=== PATIENT | male | born 1940 | race African-American/Black ===

== ENCOUNTER 2016-04-01 00:58 | Emergency (ER) | payer OTHER, MEDICARE ==
[2016-04-01] MEDS ORDERED: NORMAL SALINE 1000 ML 1,000 ML IV ONE (01:34)
--- NOTE | 2016-04-01 01:47 | ER Document Report ---
ED General - General Chief Complaint: Syncope Stated Complaint: SYNCOPE TRAVEL OUTSIDE OF THE [place] IN LAST 30 DAYS: No - HPI Patient complains to provider of: syncope Notes: Patient coming in for evaluation syncope. Patient states she has a history of syncope will multiple episodes in the past. 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 Patient states most, he has a passing out episode he initially becomes dizzy and then passed out for brief period time. Patient denies any head pain chest pain abdominal pain or 2 during or after the episode. Patient currently is ANO 3 acting like himself according to family member at bedside. Patient did just recently started new diet family' s concern that patient is not eating enough or drinking enough. Patient was orthostatic for EMS. Otherwise patient has no complaints no recent travel no changes in his home medications. - Related Data Allergies/Adverse Reactions: No Known Allergies Allergy (Verified 04/01/16 01:33) Past Medical History - Social History Smoking Status: Unknown if Ever Smoked Family History: None - Past Medical History Cardiac Medical History: Reports: Hx Hypertension Past Surgical History: Reports: Hx Tonsillectomy, Other - prostate biopsy - Immunizations Hx Diphtheria, Pertussis, Tetanus Vaccination: Yes Review of Systems - Review of Systems Constitutional: No symptoms reported EENT: No symptoms reported Cardiovascular: Syncope Respiratory: No symptoms reported Gastrointestinal: No symptoms reported Genitourinary: No symptoms reported Male Genitourinary: No symptoms reported Musculoskeletal: No symptoms reported Skin: No symptoms reported Hematologic/Lymphatic: No symptoms reported Neurological/Psychological: No symptoms reported -: Yes All other systems reviewed and negative Physical Exam - Vital signs Vitals: Temp Resp BP Pulse Ox 98.0 F 18 108/55 L 93 04/01/16 01:09 04/01/16 01:09 04/01/16 01:09 04/01/16 01:09 Interpretation: Normal - General General appearance: Appears well, Alert - HEENT Head: Normocephalic, Atraumatic Eyes: Normal Pupils: PERRL - Respiratory Respiratory status: No respiratory distress Chest status: Nontender Breath sounds: Normal Chest palpation: Normal - Cardiovascular Rhythm: Regular Heart sounds: Normal auscultation Murmur: No - Abdominal Inspection: Normal Distension: No distension Bowel sounds: Normal Tenderness: Nontender Organomegaly: No organomegaly - Back Back: Normal, Nontender - Extremities General upper extremity: Normal inspection, Nontender, Normal color, Normal ROM , Normal temperature General lower extremity: Normal inspection, Nontender, Normal color, Normal ROM , Normal temperature, Normal weight bearing. No: Napoleon's sign - Neurological Neuro grossly intact: Yes Cognition: Normal Orientation: AAOx4 [place] Coma Scale Eye Opening: Spontaneous [place] Coma Scale Verbal: Oriented Ej Coma Scale Motor: Obeys Commands [place] Coma Scale Total: 15 Speech: Normal Motor strength normal: LUE, RUE, LLE, RLE Sensory: Normal - Psychological Associated symptoms: Normal affect, Normal mood - Skin Skin Temperature: Warm Skin Moisture: Dry Skin Color: Normal Course - Re-evaluation Re-evalutation: 04/01/16 07:07 Patient able ambulate around the ER without difficulty. Patient's lab work shows no acute pathology. Troponins negative patient will be discharged home. - Vital Signs Vital signs: Temp Pulse Resp BP Pulse Ox 98.0 F 16 108/61 94 04/01/16 01:09 04/01/16 06:56 04/01/16 06:56 04/01/16 06:56 - Laboratory Result Diagrams: 04/01/16 01:50 04/01/16 01:50 Laboratory results interpreted by me: 04/01/16 04/01/16 04/01/16 01:50 01:50 01:50 RBC 3.93 L Hgb 11.4 L Hct 35.4 L Monocytes % 13.4 H BUN 51 H Creatinine 1.54 H Est GFR ( Amer) 54 L Est GFR (Non-Af Amer) 44 L Creatine Kinase 405 H CK-MB (CK-2) 4.93 H Total Protein 6.0 L Discharge - Discharge Clinical Impression: Syncope Qualifiers: Syncope type: unspecified Qualified Code(s): R55 - Syncope and collapse Condition: Good Disposition: HOME, SELF-CARE Instructions: Syncopal Episode ([facility]) Additional Instructions: Please follow-up with your primary care physician. Return to the ER symptoms worsen. Referrals: MARY GRACE SCHWARTZ MD [Primary Care Provider] - Follow up in 3-5 days
[2016-04-01 02:04] LABS: ABSOLUTE BASOPHILS # (AUTO) 0.1 10^3/uL (0.0-0.2); ABSOLUTE EOSINOPHILS # (AUTO) 0.3 10^3/uL (0.0-0.6); ABSOLUTE LYMPHOCYTES (AUTO) 1.4 10^3/uL (0.5-4.7); ABSOLUTE MONOCYTES (AUTO) 1.3 10^3/uL (0.1-1.4); ABSOLUTE NEUT (AUTO) 6.6 10^3/uL (1.7-8.2); BASOPHILS % (AUTO) 0.8 % (0-2); EOSINOPHILS % (AUTO) 3.2 % (0-6); HEMATOCRIT 35.4 % (37.9-51.0); HEMOGLOBIN 11.4 g/dL (13.5-17.0); HGB HCT DIFFERENCE -1.2; MEAN CORPUSCULAR HEMOGLOBIN 29.1 pg (27.0-33.4); MEAN CORPUSCULAR HGB CONC 32.3 g/dL (32.0-36.0); MEAN CORPUSCULAR VOLUME 90 fl (80-97); MONOCYTES % (AUTO) 13.4 % (3-13); RED BLOOD COUNT 3.93 10^6/uL (4.35-5.55); SEGMENTED NEUTROPHILS % (AUTO) 68.6 % (42-78); WHITE BLOOD COUNT 9.7 10^3/uL (4.0-10.5)
[2016-04-01 02:21] LABS: PROTHROMBIN TIME 14.2 SEC (11.4-15.4)
[2016-04-01 02:25] LABS: ALANINE AMINOTRANSFERASE 30 U/L (21-72); ALBUMIN 3.5 g/dL (3.5-5.0); ALKALINE PHOSPHATASE 59 U/L (38-126); ANION GAP 9 (5-19); ASPARTATE AMINO TRANSFERASE 32 U/L (17-59); BILIRUBIN,TOTAL 0.3 mg/dL (0.2-1.3); BLOOD UREA NITROGEN 51 mg/dL (7-20); CALCIUM 8.7 mg/dL (8.4-10.2); CARBON DIOXIDE 27 mmol/L (22-30); CHLORIDE 105 mmol/L (98-107); CREATINE KINASE 405 U/L (55-170); CREATININE RESULT 1.54 mg/dL (0.52-1.25); GLUCOSE 92 mg/dL (75-110); POTASSIUM 4.4 mmol/L (3.6-5.0); SODIUM 141.3 mmol/L (137-145)
[2016-04-01 02:33] LABS: CREATINE KINASE MB 4.93 ng/mL (<4.55)
[2016-04-01 02:41] LABS: TROPONIN I < 0.012 ng/mL
[2016-04-01 07:00] VITALS: BP 108/61
--- NOTE | 2016-04-01 08:20 | EKG REPORT ---
SEVERITY:- ABNORMAL ECG - SINUS RHYTHM PAIRED VENTRICULAR PREMATURE COMPLEXES : Confirmed by: Gustavo Francois MD 01-Apr-2016 08:19:28
== END 2016-04-01 06:59 | disposition home or self-care (01) ==
LOC: ER 00:58
DX: R55 Syncope and collapse (principal); I10 Essential (primary) hypertension
CPT/HCPCS: 93005; 99284; 96360; 36415; 82553; 82550; 83735; 85025; 85610; 80053; 84484; 71010; 93010; J7030

== ENCOUNTER → 2016-04-08 | Outpatient (CLI) | payer MEDICARE, OTHER | LOC: RAD 12:49 | PROVIDERS: ATTEND Internal Medicine Geriatric Medicine | DX: R55 Syncope and collapse (principal) | CPT/HCPCS: 70450 ==

== ENCOUNTER → 2016-07-05 | Outpatient (CLI) | payer MEDICARE, OTHER | LOC: RAD 09:10 | PROVIDERS: ATTEND Internal Medicine Geriatric Medicine | DX: I12.9 Hypertensive chronic kidney disease with stage 1 through stage 4 chronic kidney disease, or unspecified chronic kidney disease (principal); N18.3 Chronic kidney disease, stage 3 (moderate); N40.0 Benign prostatic hyperplasia without lower urinary tract symptoms | CPT/HCPCS: 76770 ==

== ENCOUNTER 2017-05-23 06:59 | Day surgery (SDC) | payer MEDICARE, OTHER ==
[2017-05-16 10:06] LABS: HEMATOCRIT 38.3 % (37.9-51.0); HEMOGLOBIN 12.6 g/dL (13.5-17.0); MEAN CORPUSCULAR HEMOGLOBIN 29.2 pg (27.0-33.4); MEAN CORPUSCULAR VOLUME 89 fl (80-97); PLATELET COUNT 198 10^3/uL (150-450); RED BLOOD COUNT 4.32 10^6/uL (4.35-5.55); RED CELL DISTRIBUTION WIDTH 14.5 % (11.5-14.0)
[2017-05-16 10:46] LABS: ANION GAP 12 (5-19); BLOOD UREA NITROGEN 36 mg/dL (7-20); CALCIUM 10.2 mg/dL (8.4-10.2); CARBON DIOXIDE 25 mmol/L (22-30); CHLORIDE 104 mmol/L (98-107); GLUCOSE 87 mg/dL (75-110); POTASSIUM 4.7 mmol/L (3.6-5.0)
--- NOTE | 2017-05-16 14:34 | EKG REPORT ---
SEVERITY:- ABNORMAL ECG - SINUS RHYTHM ATRIAL PREMATURE COMPLEX NO CHANGE FROM, 04/01/17 EKG, EXCEPT FOR ABSENT PVCS : Confirmed by: Gustavo Francois MD 16-May-2017 14:33:50
[~2017-05-23 06:59] MED LIST: CEFAZOLIN 1 GM/D5W RTU 1 GM/50 ML RTUPB IV PRN; LACTATED RINGERS 1000 ML IV PRN; LIDOCAINE 0.5% INJ-PF (5 MG/ML) 50 ML SDV SUBCUT PRN
[2017-05-23] MEDS ORDERED: BUPIVACAINE HCL 0.25 % INJ/PF (2.5 MG/1 ML) 30 ML VIAL ONE (07:11)
[2017-05-23] MEDS ORDERED: ALBUTEROL SULFATE 0.083% NEB 2.5 MG/3 ML AMPUL NEB ONE (09:04)
[2017-05-23] MEDS ORDERED: PROPOFOL INJ 200 MG/20 ML VIAL IV ONE (09:39)
[2017-05-23] MEDS ORDERED: FENTANYL CITRATE INJ/PF 100 MCG/2 ML AMPUL ONE (09:39)
[2017-05-23] MEDS ORDERED: MIDAZOLAM 2 MG/2 ML INJ ONE (09:39)
[2017-05-23] MEDS ORDERED: ACETAMINOPHEN 100 ML IV ONE (09:40)
[2017-05-23] MEDS ORDERED: EPHEDRINE SULFATE INJ 50 MG/1 ML AMPULE ONE (09:40)
[2017-05-23] MEDS ORDERED: OXYCODONE-ACETAMINOPHEN 5-325 MG TABLET PO PRN ×2 (10:04)
[2017-05-23] MEDS ORDERED: PROMETHAZINE HCL INJ 25 MG/1 ML VIAL IV PRN ×2 (10:04)
[2017-05-23] MEDS ORDERED: DIPHENHYDRAMINE HCL 50 MG/ML VIAL IV PRN (10:04)
[2017-05-23] MEDS ORDERED: FENTANYL CITRATE INJ/PF 100 MCG/2 ML AMPUL IV PRN ×3 (10:04)
[2017-05-23] MEDS ORDERED: MEPERIDINE HCL/PF INJ 25 MG/1 ML DISP.SYRIN IV PRN (10:04)
--- NOTE | 2017-05-23 10:51 | Discharge Summary ---
Discharge Summary (SDC) - Discharge Final Diagnosis: Incarcerated umbilical hernia Date of Surgery: 05/23/17 Discharge Date: 05/23/17 Condition: Good Treatment or Instructions: Wear abdominal binder while awake; may shower: The clinic [facility] in 1-2 weeks, follow-up with LEILA Sylvester or Dr. Castillo; no heavy lifting greater than 20 pounds for 1 month Prescriptions: Ketorolac Tromethamine [Toradol 10 mg Tablet] 10 mg PO Q6HP PRN #14 tablet PRN Reason: Referrals: MARY GRACE SCHWARTZ MD [Primary Care Provider] - Discharge Activity: Activity As Tolerated, No Lifting Over 10 Pounds Home Care Assistance: None Needed Report the Following to Your Physician Immediately: Shortness of Breath, Increase in Pain, Fever over 101 Degrees
--- NOTE | 2017-05-23 10:58 | Operative Report ---
Operative Report DATE OF SURGERY: 05/23/17 PREOPERATIVE DIAGNOSIS: Umbilical hernia, incarcerated POSTOPERATIVE DIAGNOSIS: Same OPERATION: Laparoscopic umbilical herniorrhaphy with primary closure and reinforcement with Covidien 9 cm diameter mesh, intraperitoneal position SURGEON: SILVESTRE LUNA ANESTHESIA: GA TISSUE REMOVED OR ALTERED: None COMPLICATIONS: None ESTIMATED BLOOD LOSS: Negligible INTRAOPERATIVE FINDINGS: See below PROCEDURE: Patient was taken to the preop holding area the main operating room where general anesthesia was induced. The abdomen was exposed arms abducted, abdomen prepped and draped in sterile fashion with Betadine Instrumentation set up for laparoscopic ventral herniorrhaphy. Surgical plan and surgical timeout were conducted. Markings were made on the anterior abdominal wall skin for planned 3 port surgery. Left upper quadrant was anesthetized with quarter percent Marcaine, stab wound made in the left upper quadrant, Veress needle inserted into the peritoneal cavity, and pneumoperitoneum was established. Veress needle was removed, 5 mm port was inserted, a 5 mm flexible scope was inserted. Visualization of peritoneal cavity revealed no intra-abdominal injuries. 2 additional 5 mm ports were placed one in the left lower quadrant and one in the right mid field position Findings are significant for omentum incarcerated to the ventral hernia. Using combination of traction, extracorporeal manipulation, and hook cautery, the hernia contents, and hernia sac were debrided from the anterior abdominal wall. Approximately 3 x 5 cm mass of omentum stuck in the incarceration. SMall masses of fatty tissue were left in the intraperitoneal position. Fascial defect was approximately 2 cm in diameter. We elected to close the fascial defect transversely with a single [id number] #1 PDS suture and this was deployed by making a small janet in the skin skin over the umbilicus. Using the disposable suture passer, the suture was placed into an H like configuration, [id number], and the knot secured bringing the fascia together very nicely under negligible tension. We now brought onto the field a 9 cm Covidien polypropylene mesh,parietex variety. Expiration date was checked. Mesh was affixed with 0 PDS sutures at the 12, 3, 6, 9:00 positions. Mesh was rolled after moistening, and brought to the intra-abdominal wall at the right-sided port incision. The mesh was un- rolled, and brought up to the anterior abdominal wall using each suture and the disposable suture passer. We then came around with 2 circumferential wounds of disposable tack application with approximately 12 tacks applied. The mesh appeared to be in excellent position. Photos were taken. Sponge and needle counts are correct; we inspected the parietal cavity and there was no evidence of injury. All ports removed under direct visualization pneumoperitoneum evacuated wounds closed with 3-0 Vicryl suture benzoin and Steri-Strips. Patient tolerated the procedure well, extubated, taken to recovery room in stable condition.
[2017-05-23] MEDS: FENTANYL CITRATE INJ/PF 100 MCG/2 ML AMPUL ONE ×2 (11:05→11:15)
[2017-05-23] MEDS ORDERED: OXYCODONE-ACETAMINOPHEN 5-325 MG TABLET ONE (12:15)
[2017-05-23] MEDS ORDERED: GLYCOPYRROLATE INJ 0.4 MG/2 ML VIAL ONE (14:06)
[2017-05-23] MEDS ORDERED: SUCCINYLCHOLINE CHLORIDE INJ 200 MG/10 ML VIAL ONE (14:06)
[2017-05-23] MEDS ORDERED: NEOSTIGMINE METHYLSULFATE 10 MG/10 ML VIAL ONE (14:06)
[2017-05-23] MEDS ORDERED: ONDANSETRON HCL INJ/PF 4 MG/2 ML SDV ONE (14:06)
[2017-05-23] MEDS ORDERED: DEXAMETHASONE SOD PHOSPHATE INJ 4 MG/1 ML VIAL ONE (14:06)
[2017-05-23 18:07] VITALS: BP 133/73
== END 2017-05-23 14:00 | disposition home or self-care (01) ==
LOC: OROUT 06:59
PROVIDERS: ATTEND Surgery
PROC: 0WUF4JZ Supplement Abdominal Wall with Synthetic Substitute, Percutaneous Endoscopic Approach (ICD-10-PCS; principal; 2017-05-23 09:00)
DX: K42.0 Umbilical hernia with obstruction, without gangrene (principal); J44.9 Chronic obstructive pulmonary disease, unspecified; I10 Essential (primary) hypertension; N40.0 Benign prostatic hyperplasia without lower urinary tract symptoms; Z79.899 Other long term (current) drug therapy; Z79.82 Long term (current) use of aspirin; Z79.51 Long term (current) use of inhaled steroids; Z79.891 Long term (current) use of opiate analgesic; Z87.891 Personal history of nicotine dependence
CPT/HCPCS: 36415; 750; 80048; 84132; 85027; 93005; 93010; C1781; J0131; J0330; J0690; J1100; J2250; J2405; J2704; J3010; J3490

== ENCOUNTER 2018-02-10 08:14 | Emergency (ER) | payer MEDICARE, OTHER ==
[2018-02-10 08:33] LABS: ABSOLUTE BASOPHILS # (AUTO) 0.1 10^3/uL (0.0-0.2); ABSOLUTE EOSINOPHILS # (AUTO) 0.8 10^3/uL (0.0-0.6); ABSOLUTE LYMPHOCYTES (AUTO) 1.9 10^3/uL (0.5-4.7); BASOPHILS % (AUTO) 0.7 % (0-2); EOSINOPHILS % (AUTO) 10.9 % (0-6); HEMATOCRIT 37.7 % (37.9-51.0); HEMOGLOBIN 12.5 g/dL (13.5-17.0); LYMPHOCYTES % (AUTO) 24.3 % (13-45); MEAN CORPUSCULAR HEMOGLOBIN 29.4 pg (27.0-33.4); MEAN CORPUSCULAR HGB CONC 33.2 g/dL (32.0-36.0); MEAN CORPUSCULAR VOLUME 89 fl (80-97); MONOCYTES % (AUTO) 12.4 % (3-13); PLATELET COUNT 197 10^3/uL (150-450); RED BLOOD COUNT 4.26 10^6/uL (4.35-5.55); SEGMENTED NEUTROPHILS % (AUTO) 51.7 % (42-78); TOTAL CELLS COUNTED % (AUTO) 100 %; WHITE BLOOD COUNT 7.7 10^3/uL (4.0-10.5)
[2018-02-10 08:55] LABS: ALANINE AMINOTRANSFERASE 21 U/L (21-72); ALBUMIN 3.9 g/dL (3.5-5.0); ALKALINE PHOSPHATASE 73 U/L (38-126); ANION GAP 13 (5-19); ASPARTATE AMINO TRANSFERASE 28 U/L (17-59); BILIRUBIN,DIRECT 0.1 mg/dL (0.0-0.4); BILIRUBIN,TOTAL 0.4 mg/dL (0.2-1.3); BLOOD UREA NITROGEN 37 mg/dL (7-20); CALCIUM 9.9 mg/dL (8.4-10.2); CARBON DIOXIDE 28 mmol/L (22-30); CHLORIDE 103 mmol/L (98-107); CREATINE KINASE 105 U/L (55-170); GLUCOSE 114 mg/dL (75-110); POTASSIUM 4.6 mmol/L (3.6-5.0); SODIUM 144.1 mmol/L (137-145); TOTAL PROTEIN 6.5 g/dL (6.3-8.2)
[2018-02-10 09:06] LABS: CREATINE KINASE MB 3.29 ng/mL (<4.55)
[2018-02-10 09:07] LABS: TROPONIN I < 0.012 ng/mL
--- NOTE | 2018-02-10 09:56 | RADIOLOGY REPORT (SQ) ---
EXAM DESCRIPTION: CHEST SINGLE VIEW COMPLETED DATE/TIME: 02/10/2018 9:46 am REASON FOR STUDY: chest pain, vomiting COMPARISON: Chest films 08/28/2010, 01/16/2016, 04/01/2016 EXAM PARAMETERS: NUMBER OF VIEWS: One view. TECHNIQUE: Single frontal radiographic view of the chest acquired. RADIATION DOSE: NA LIMITATIONS: None. FINDINGS: LUNGS AND PLEURA: Upper lobes are hyperinflated and hyperlucent from obstructive disease. There is crowding of vessels in the right middle lobe with volume loss at both lung bases. No defin ite acute infiltrates. No pleural effusion or pneumothorax. MEDIASTINUM AND HILAR STRUCTURES: No masses. Contour normal. HEART AND VASCULAR STRUCTURES: Heart normal in size. Normal vasculature. BONES: No acute findings. HARDWARE: None in the chest. OTHER: No other significant finding. IMPRESSION: Low lung volumes with obstructive lung disease and crowding of vascular markings in the right middle lobe. This appearance is similar compared to previous studies. TECHNICAL DOCUMENTATION: JOB ID: [id number] [employer]- All Rights Reserved Reading location - IP/workstation name: [email or web address]
--- NOTE | 2018-02-10 11:17 | ER Document Report ---
ED General - General Chief Complaint: Nausea/Vomiting Stated Complaint: SYNCOPE Time Seen by Provider: 02/10/18 08:27 Mode of Arrival: Medic Information source: Patient Notes: Patient is a 77-year-old male who presents with chief complaint of vomiting and near syncope. Patient reports that through the night he was having epigastric pain worse than usual. He reports that this woke him up multiple times. He reports that at 5 AM this morning he woke up trying to drink some coffee when he all of a sudden felt some worsening of his epigastric pain. He states he walked into the bathroom where he vomited and "blacked out". Patient denies falling, denies striking his head on anything. Patient states he has similar episode happened approximately 1 year ago. He denies any chest pain or shortness of breath, however he continues to report mild pain in the epigastric area that feels like a "uncomfortable feeling". Patient denies any radiation of this pain. TRAVEL OUTSIDE OF THE [place] IN LAST 30 DAYS: No - Related Data Allergies/Adverse Reactions: No Known Allergies Allergy (Verified 02/10/18 08:26) Past Medical History - Social History Smoking Status: Unknown if Ever Smoked Family History: None Patient has suicidal ideation: No Patient has homicidal ideation: No - Past Medical History Cardiac Medical History: Reports: Hx Hypertension - ON MEDS Denies: Hx Coronary Artery Disease, Hx Heart Attack Pulmonary Medical History: Reports: Hx COPD - ON INHALERS, Hx Pneumonia - 2003 Denies: Hx Asthma, Hx Bronchitis Neurological Medical History: Denies: Hx Cerebrovascular Accident, Hx Seizures Renal/ Medical History: Denies: Hx Peritoneal Dialysis Musculoskeletal Medical History: 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 HEAD: Atraumatic, normocephalic. EYES: Pupils equal round and reactive to light, extraocular movements intact, sclera anicteric, conjunctiva are normal. ENT: Nares patent, oropharynx clear without exudates. Moist mucous membranes. NECK: Normal range of motion, supple without lymphadenopathy LUNGS: Breath sounds clear to auscultation bilaterally and equal. No wheezes rales or rhonchi. HEART: Regular rate and rhythm without murmurs ABDOMEN: Soft, nontender, nondistended abdomen. No guarding, no rebound. No masses appreciated. Musculoskeletal: Normal range of motion, no pitting or edema. No cyanosis. NEUROLOGICAL: Cranial nerves grossly intact. Normal speech, normal gait. Normal sensory, motor exams PSYCH: Normal mood, normal affect. SKIN: Warm, Dry, normal turgor, no rashes or lesions noted. Course - Re-evaluation Re-evalutation: Patient's workup today was unremarkable other than elevations in his BUN and creatinine. Patient has had elevated BUN and creatinine in the past. Patient has been awake, alert and oriented and without any complaints throughout his stay. Vital signs have been stable since arrival. Cardiac enzymes were done and were negative, delta troponin was done and was also negative. I did call and speak to patient's primary care provider Dr. Schwartz who recommends discharging patient and sending him to his office. This was discussed with both patient and his and they are both in agreement. - Vital Signs Vital signs: Temp Pulse Resp BP Pulse Ox 98.4 F 16 119/63 97 02/10/18 13:38 02/10/18 13:31 02/10/18 13:31 02/10/18 13:31 - Laboratory Result Diagrams: 02/10/18 08:02 02/10/18 08:02 Laboratory results interpreted by me: 02/10/18 02/10/18 02/10/18 08:02 08:02 10:09 RBC 4.26 L Hgb 12.5 L Hct 37.7 L Eosinophils % 10.9 H Absolute Eosinophils 0.8 H BUN 37 H Creatinine 2.08 H Est GFR ( Amer) 38 L Est GFR (Non-Af Amer) 31 L Glucose 114 H Urine Ketones TRACE H Urine Ascorbic Acid 40 H Discharge - Discharge Clinical Impression: Epigastric pain, Elevated BUN, Elevated serum creatinine Syncope Qualifiers: Syncope type: unspecified Qualified Code(s): R55 - Syncope and collapse Vomiting Qualifiers: Vomiting type: unspecified Vomiting Intractability: unspecified Nausea presence : unspecified Qualified Code(s): R11.10 - Vomiting, unspecified Condition: Stable Disposition: HOME, SELF-CARE Additional Instructions: Syncopal Episode Syncope (fainting or near-fainting) can occur from many different health problems. Or it can be a simple fainting spell requiring no treatment. It is safe for you to go home, but further evaluation will likely be necessary. Your work-up may include tests for internal bleeding, heart disease, medication problems, or near-strokes. Tests are not always required, however, depending on the nature of your problem. The warning signs of an impending faint include: dizziness, lightheadedness , nausea, hot flashes, tingling, and weakness. If this happens, lay down and put your feet up, then wait until all of these symptoms have passed before standing up again. If these episodes become recurrent, or if you develop chest pain, heart palpitations, mental confusion, blurred vision, or headache, then you should call the physician, or go to the emergency room. Your workup today was relatively unremarkable. The only abnormality that I found on your lab work was elevated kidney function tests. He has had similar elevations in the past. I did call and speak to your primary care provider, Dr. Schwartz he would like to see you in his office today.lease return to the emergency department if you pass out again or feel unwell in any other way. We are happy to reevaluate you at any time. Referrals: MARY GRACE SCHWARTZ MD [Primary Care Provider] - Follow up as needed
[2018-02-10 11:30] LABS: APPEARANCE,URINE SLIGHTLY-CLOUDY; BILIRUBIN,URINE NEGATIVE (NEGATIVE); COLOR,URINE YELLOW; GLUCOSE, URINE NEGATIVE (NEGATIVE); KETONES,URINE TRACE mg/dL (NEGATIVE); LEUKOCYTE ESTERASE,URINE NEGATIVE (NEGATIVE); NITRITE,URINE NEGATIVE (NEGATIVE); PROTEIN,URINE NEGATIVE (NEGATIVE); URINE SPECIFIC GRAVITY 1.023; UROBILINOGEN,URINE NEGATIVE mg/dL (<2.0)
--- NOTE | 2018-02-10 13:37 | EKG REPORT ---
SEVERITY:- ABNORMAL ECG - SINUS RHYTHM MULTIPLE ATRIAL PREMATURE COMPLEXES : Confirmed by: Gustavo Francois MD 10-Feb-2018 13:36:43
[2018-02-10 13:38] VITALS: BP 119/63
== END 2018-02-10 13:44 | disposition home or self-care (01) ==
LOC: ER 08:14
DX: R10.13 Epigastric pain (principal); R11.10 Vomiting, unspecified; R55 Syncope and collapse; R79.9 Abnormal finding of blood chemistry, unspecified; I10 Essential (primary) hypertension
CPT/HCPCS: 36415; 71045; 80053; 81001; 82550; 82553; 84484; 85025; 93005; 93010; 99285

== ENCOUNTER → 2018-02-17 | Outpatient (CLI) | payer MEDICARE, OTHER ==
--- NOTE | 2018-02-17 13:54 | RADIOLOGY REPORT (SQ) ---
EXAM DESCRIPTION: U/S RETROPERITON (RENAL/AORTA) COMPLETED DATE/TIME: 02/17/2018 1:30 pm REASON FOR STUDY: ACUTE KIDNEY FAILURE (N17.9) N17.9 ACUTE KIDNEY FAILURE, UNSPECIFIED COMPARISON: Abdominal ultrasound 07/05/2016 CT abdomen pelvis 01/21/2016 TECHNIQUE: Dynamic and static grayscale images acquired of the kidneys and bladder and recorded on P ACS. Additional selected color Doppler and spectral images recorded. LIMITATIONS: None. FINDINGS: RIGHT KIDNEY: 9 cm in length, with grossly normal cortical thickness and echogenicity. 3 cm right upper pole cyst. No solid or suspicious masses. No hydronephrosis. No calcifications. LEFT KIDNEY: 9 cm in length, with grossly normal cortical thickness and echogenicity. No solid or gruber spicious masses. No hydronephrosis. No calcifications. BLADDER: No masses. OTHER FINDINGS: Prostate indents the bladder base, prostate is 5.3 x 4.7 x 4.2 cm in size IMPRESSION: Enlarged prostate No hydronephrosis or hydroureter TECHNICAL DOCUMENTATION: JOB ID: [id number]- All Rights Reserved Reading location - IP/workstation name: [email or web address]
== END ==
LOC: RAD 12:38
PROVIDERS: ATTEND Internal Medicine Geriatric Medicine
DX: N17.9 Acute kidney failure, unspecified (principal); N40.0 Benign prostatic hyperplasia without lower urinary tract symptoms
CPT/HCPCS: 76770

== ENCOUNTER 2018-06-13 20:13 | Inpatient (IN) | payer OTHER, MEDICARE ==
[2018-06-13] MEDS ORDERED: NORMAL SALINE 500 ML IV ONE (20:26)
--- NOTE | 2018-06-13 20:27 | ER Document Report ---
ED General - General Stated Complaint: WEAKNESS Time Seen by Provider: 06/13/18 20:21 Notes: Patient is a 78-year-old male that comes to the emergency department for chief complaint of generalized weakness. He states since yesterday he has not felt himself, he states he has been lying around with no energy. He does have a cough and it is slightly worsening, he denies shortness of breath, chest pain, fever/chills. He denies any areas of pain including headache, flank pain, abdominal pain. He states the last time he felt like this he was dehydrated, he states that he does not drink enough fluid. He denies diarrhea or vomiting. Past medical history of hypertension, COPD, chronic back pain, BPH, denies history of GA or CHF. Lives at home, at bedside. TRAVEL OUTSIDE OF THE [place] IN LAST 30 DAYS: No - Related Data Allergies/Adverse Reactions: No Known Allergies Allergy (Verified 02/10/18 08:26) Past Medical History - General Information source: Patient - Social History Smoking Status: Never Smoker Frequency of alcohol use: None Drug Abuse: None Lives with: Family Family History: None - Past Medical History Cardiac Medical History: Reports: Hx Hypertension - ON MEDS Denies: Hx Coronary Artery Disease, Hx Heart Attack Pulmonary Medical History: Reports: Hx COPD - ON INHALERS, Hx Pneumonia - 2003 Denies: Hx Asthma, Hx Bronchitis Neurological Medical History: Denies: Hx Cerebrovascular Accident, Hx Seizures Renal/ Medical History: Denies: Hx Peritoneal Dialysis Musculoskeletal Medical History: Reports Hx Arthritis - LOW BACK, RIGHT WRIST Past Surgical History: Reports: Hx Tonsillectomy, Other - prostate biopsy 01/15/16 - Immunizations Hx Diphtheria, Pertussis, Tetanus Vaccination: Yes Hx Pneumococcal Vaccination: 03/17/16 Review of Systems - Review of Systems Constitutional: See HPI EENT: No symptoms reported Cardiovascular: No symptoms reported Respiratory: See HPI Gastrointestinal: No symptoms reported Genitourinary: No symptoms reported Male Genitourinary: No symptoms reported Musculoskeletal: No symptoms reported Skin: No symptoms reported Hematologic/Lymphatic: No symptoms reported Neurological/Psychological: No symptoms reported Physical Exam - Vital signs Vitals: Temp Pulse Resp BP Pulse Ox 98.4 F 108 H 22 H 105/52 L 95 06/13/18 20:15 06/13/18 20:15 06/13/18 20:15 06/13/18 20:15 06/13/18 20:15 - Notes Notes: GENERAL: Alert. No acute distress. HEAD: Normocephalic, atraumatic. EYES: Pupils equal, round, and reactive to light. Extraocular movements intact. ENT: Oral mucosa moist, tongue midline. Oropharynx unremarkable. Airway patent. Nares patent, no nasal septal hematoma, TM's intact. NECK: Full range of motion. Supple. Trachea midline. LUNGS: A few scattered coarse breath sounds. Congested cough. No labored breathing or distress. No wheezing or rales. HEART: Tachycardia, extrasystoles. Not irregularly irregular. No murmur. ABDOMEN: Soft, non-tender. Non-distended. Bowel sounds present in all 4 quadrants. GENITOURINARY: Deferred EXTREMITIES: Moves all 4 extremities spontaneously. No edema, normal radial and dorsalis pedis pulses bilaterally. No cyanosis. BACK: no cervical, thoracic, lumbar midline tenderness. No saddle anesthesia, normal distal neurovascular exam. NEUROLOGICAL: Alert and oriented x3. Normal speech. [cranial nerves II through XII grossly intact]. PSYCH: Normal affect, normal mood. SKIN: Warm, dry, normal turgor. No rashes or lesions noted. Course - Re-evaluation Re-evalutation: Patient alert, not toxic in appearance. He does have a congested cough. No tachypnea. Physical examination is unremarkable otherwise except for tachycardia with some PVCs. He becomes occasionally borderline hypoxic. CBC shows leukocytosis at 16,000 with elevation of neutrophils but no bandemia. Chemistry generally unremarkable except for chronic kidney disease. Urine nonspecific. Chest x-ray indicating possible pneumonia. Reevaluated patient. After IV fluids he still has tachycardia. Still has borderline hypoxia. Still reporting weakness. He is 78 years old. Because of this, leukocytosis, pneumonia, I discussed with patient and different options. Recommended admission. They state they are uncomfortable going home. Patient was started on antibiotics, cultures pending. Will discuss with patient's provider. Discussed with Dr. Cordoba, patient will be admitted to [facility] full admission. - Vital Signs Vital signs: Temp Pulse Resp BP Pulse Ox 98.3 F 109 H 20 99/70 L 95 06/14/18 03:23 06/14/18 03:23 06/14/18 03:23 06/14/18 03:23 06/14/18 03:23 - Laboratory Result Diagrams: 06/13/18 20:35 06/13/18 20:35 Laboratory results interpreted by me: 06/13/18 06/13/18 06/13/18 20:35 20:35 23:40 WBC 16.5 H RBC 4.28 L Hgb 12.6 L RDW 14.5 H Seg Neutrophils % 81.7 H Lymphocytes % 6.0 L Absolute Neutrophils 13.5 H Absolute Monocytes 1.9 H Sodium 136.9 L BUN 38 H Creatinine 2.18 H Est GFR ( Amer) 36 L Est GFR (Non-Af Amer) 29 L Glucose 132 H Urine Ketones TRACE H Urine Urobilinogen 2.0 H Discharge - Discharge Clinical Impression: Weakness, Tachycardia Pneumonia Qualifiers: Pneumonia type: due to unspecified organism Laterality: right Lung location: lower lobe of lung Qualified Code(s): J18.1 - Lobar pneumonia, unspecified organism Condition: Stable Disposition: ADMITTED INPATIENT Admitting Provider: Beryl Unit Admitted: MADINA
[2018-06-13 20:52] LABS: ABSOLUTE BASOPHILS # (AUTO) 0.1 10^3/uL (0.0-0.2); ABSOLUTE EOSINOPHILS # (AUTO) 0.1 10^3/uL (0.0-0.6); ABSOLUTE MONOCYTES (AUTO) 1.9 10^3/uL (0.1-1.4); ABSOLUTE NEUT (AUTO) 13.5 10^3/uL (1.7-8.2); BASOPHILS % (AUTO) 0.3 % (0-2); EOSINOPHILS % (AUTO) 0.3 % (0-6); HEMOGLOBIN 12.6 g/dL (13.5-17.0); MEAN CORPUSCULAR HEMOGLOBIN 29.4 pg (27.0-33.4); MEAN CORPUSCULAR HGB CONC 33.1 g/dL (32.0-36.0); MEAN CORPUSCULAR VOLUME 89 fl (80-97); MONOCYTES % (AUTO) 11.7 % (3-13); PLATELET COUNT 204 10^3/uL (150-450); RED BLOOD COUNT 4.28 10^6/uL (4.35-5.55); RED CELL DISTRIBUTION WIDTH 14.5 % (11.5-14.0); SEGMENTED NEUTROPHILS % (AUTO) 81.7 % (42-78); TOTAL CELLS COUNTED % (AUTO) 100 %; WHITE BLOOD COUNT 16.5 10^3/uL (4.0-10.5)
[2018-06-13 21:08] LABS: ALANINE AMINOTRANSFERASE 21 U/L (21-72); ALBUMIN 3.7 g/dL (3.5-5.0); ALKALINE PHOSPHATASE 59 U/L (38-126); ANION GAP 10 (5-19); ASPARTATE AMINO TRANSFERASE 29 U/L (17-59); BILIRUBIN,DIRECT 0.3 mg/dL (0.0-0.4); BILIRUBIN,TOTAL 0.9 mg/dL (0.2-1.3); BLOOD UREA NITROGEN 38 mg/dL (7-20); CALCIUM 9.2 mg/dL (8.4-10.2); CARBON DIOXIDE 23 mmol/L (22-30); CHLORIDE 104 mmol/L (98-107); GLUCOSE 132 mg/dL (75-110); POTASSIUM 4.3 mmol/L (3.6-5.0); SODIUM 136.9 mmol/L (137-145); TOTAL PROTEIN 7.1 g/dL (6.3-8.2)
--- NOTE | 2018-06-13 21:31 | RADIOLOGY REPORT (SQ) ---
XR CHEST 2 VIEWS HISTORY: Worsening cough, weakness. COMPARISON: None. FINDINGS: The heart size is normal. There is a patchy opacity at the right lung base. No large pleural effusions or pneumothorax. There are no acute bony findings. IMPRESSION: Right lung base opacity which may represent pneumonia.
[2018-06-13] MEDS ORDERED: AZITHROMYCIN INJ 500 MG VIAL IV ONE (21:38)
[2018-06-13] MEDS ORDERED: CEFTRIAXONE 1 GM/D5W RTU 1 GM/50 ML RTUPB IV ONE (21:38)
[2018-06-13 23:54] LABS: APPEARANCE,URINE SLIGHTLY-CLOUDY; BILIRUBIN,URINE NEGATIVE (NEGATIVE); COLOR,URINE AMBER; GLUCOSE, URINE NEGATIVE (NEGATIVE); KETONES,URINE TRACE mg/dL (NEGATIVE); LEUKOCYTE ESTERASE,URINE NEGATIVE (NEGATIVE); NITRITE,URINE NEGATIVE (NEGATIVE); PROTEIN,URINE NEGATIVE (NEGATIVE); URINE SPECIFIC GRAVITY 1.023
[2018-06-14] MEDS ORDERED: NORMAL SALINE 500 ML IV ONE (04:00)
[2018-06-14] MEDS: NORMAL SALINE 1000 ML 1,000 ML IV PRN ×2 (04:58→13:23)
--- NOTE | 2018-06-14 11:08 | EKG REPORT ---
SEVERITY:- BORDERLINE ECG - SINUS TACHYCARDIA VENTRICULAR PREMATURE COMPLEX BORDERLINE T ABNORMALITIES, ANT-LAT LEADS : Confirmed by: Mariah Landis MD 14-Jun-2018 11:08:14
[2018-06-14] MEDS ORDERED: TRAMADOL HCL 50 MG TABLET PO PRN (15:17)
[2018-06-14] MEDS ORDERED: ALBUTEROL SULFATE HFA (90 MCG/PUFF) 200 PUFF/8.5 GM MDI IH PRN (15:17)
[2018-06-14] MEDS ORDERED: NORMAL SALINE 1000 ML 1,000 ML IV PRN (15:44)
--- NOTE | 2018-06-14 16:12 | PDOC H&P ---
History of Present Illness Admission Date/PCP: 06/14/18 00:14 MARY GRACE LANA Patient complains of: Generalized weakness History of Present Illness: SAROJ GRAHAM is a 78 year old male patient known to my practice who presented to the ED with complain of generalized weakness. At bedside, his reported poor appetite and oral intake including food and water for several days. Patient reported generalized weakness with lack of energy. He admitted to coughing with minimal sputum production. He denied any associated chest pain, palpitation, shortness of breath.No fever or chills. No nausea, vomiting or abdominal pain. No flank pain, dysuria, or hematuria. Patient denied any associated constipation or diarrhea. His initial ED evaluation was remarkable for elevated leukocytes and abnormal chest X ray suggestive of possible airspace disease process. His morbidities include COPD, hypertension, stage 3 CKD, BPH, Chronic diastolic CHF. Past Medical History Cardiac Medical History: Reports: Hypertension - ON MEDS Denies: Coronary Artery Disease, Myocardial Infarction Pulmonary Medical History: Reports: Chronic Obstructive Pulmonary Disease (COPD) - ON INHALERS, Pneumonia - 2003 Denies: Asthma, Bronchitis Neurological Medical History: Denies: Seizures Musculoskeltal Medical History: Reports: Arthritis - LOW BACK, RIGHT WRIST Hematology: Denies: Anemia Past Surgical History Past Surgical History: Reports: Tonsillectomy, Other - prostate biopsy 01/15/16 Social History Lives with: Family Smoking Status: Never Smoker Frequency of Alcohol Use: None Hx Recreational Drug Use: No Hx Prescription Drug Abuse: No - Advance Directive Resuscitation Status: Full Code Family History Family History: None Parental Family History Reviewed: Yes Children Family History Reviewed: Yes Sibling(s) Family History Reviewed.: Yes Medication/Allergy Home Medications: Albuterol Sulfate [Proair HFA Inhalation Aerosol 8.5 gm MDI] 1 puff IH Q6HP PRN 06/14/18 Aspirin [Ecotrin 81 mg EC Tablet] 81 mg PO DAILY 06/14/18 Budesonide/Formoterol Fumarate [Symbicort HFA 160-4.5 mcg Inhaler 6 gm] 2 puff IH DAILY 06/14/18 Cetirizine HCl [Zyrtec 10 mg Tablet] 10 mg PO DAILY 06/14/18 Finasteride [Proscar 5 mg Tablet] 5 mg PO DAILY 06/14/18 Fluticasone Propionate [Flonase Nasal [place] 50 Mcg/[place] 16 gm] 1 spray NASL DAILY 06/14/18 Hydrochlorothiazide [Hydrodiuril 25 mg Tablet] 25 mg PO DAILY 06/14/18 Tamsulosin HCl [Flomax 0.4 mg Cap.sr] 0.4 mg PO QPM 06/14/18 Tiotropium [place] [Spiriva Respimat] 2 puff IH Q12 06/14/18 Tramadol HCl [Ultram 50 mg Tablet] 50 mg PO Q6HP PRN 06/14/18 Valsartan [Diovan 160 mg Tablet] 160 mg PO DAILY 06/14/18 Allergies/Adverse Reactions: No Known Allergies Allergy (Verified 02/10/18 08:26) Review of Systems Constitutional: PRESENT: weakness Ears: ABSENT: hearing changes Nose, Mouth, and Throat: ABSENT: as per HPI, headache(s), mouth pain, sore throat, vertigo, other Cardiovascular: ABSENT: chest pain, dyspnea on exertion, edema, orthropnea, palpitations Respiratory: PRESENT: cough, sputum Gastrointestinal: PRESENT: other - anorexia. ABSENT: abdominal pain, constipation, diarrhea, hematemesis, hematochezia, nausea, vomiting Genitourinary: ABSENT: dysuria, hematuria Musculoskeletal: PRESENT: muscle weakness - generalized weakness Integumentary: ABSENT: rash, wounds Neurological: ABSENT: abnormal gait, abnormal speech, confusion, dizziness, focal weakness, syncope Psychiatric: ABSENT: anxiety, depression, homidical ideation, suicidal ideation Endocrine: ABSENT: cold intolerance, heat intolerance, polydipsia, polyuria Hematologic/Lymphatic: ABSENT: easy bleeding, easy bruising, lymphadenopathy Allergic/Immunologic: ABSENT: seasonal rhinorrhea Physical Exam Vital Signs: Temp Pulse Resp BP Pulse Ox 97.9 F 111 H 19 105/53 L 100 06/14/18 11:34 06/14/18 14:00 06/14/18 11:34 06/14/18 11:34 06/14/18 11:34 Intake & Output 06/13/18 06/14/18 06/15/18 06:59 06:59 06:59 Intake Total 550 947 Output Total 0 Balance 550 947 Weight 90.8 kg General appearance: PRESENT: no acute distress, well-developed, well-nourished Head exam: PRESENT: atraumatic, normocephalic Eye exam: PRESENT: conjunctiva pink, EOMI, PERRLA. ABSENT: scleral icterus Ear exam: PRESENT: normal external ear exam Mouth exam: PRESENT: moist Respiratory exam: PRESENT: crackles - scattered, decreased breath sounds - at lung bases, rales - minimal bilaterally Cardiovascular exam: PRESENT: RRR, +S1, +S2. ABSENT: diastolic murmur, rubs, systolic murmur Vascular exam: ABSENT: pallor GI/Abdominal exam: PRESENT: normal bowel sounds, soft. ABSENT: distended, guarding, mass, organolmegaly, rebound, tenderness Rectal exam: PRESENT: deferred Extremities exam: ABSENT: pedal edema Musculoskeletal exam: PRESENT: normal inspection Neurological exam: PRESENT: alert, awake, oriented to person, oriented to place, oriented to time, oriented to situation, CN II-XII grossly intact. ABSENT: motor sensory deficit Psychiatric exam: PRESENT: appropriate affect, normal mood. ABSENT: homicidal ideation, suicidal ideation Skin exam: PRESENT: dry, warm Results Laboratory Results: 06/13/18 20:35 06/13/18 20:35 06/13/18 06/13/18 06/13/18 20:35 20:35 23:40 WBC 16.5 H RBC 4.28 L Hgb 12.6 L Hct 38.0 MCV 89 MCH 29.4 MCHC 33.1 RDW 14.5 H Plt Count 204 Seg Neutrophils % 81.7 H Lymphocytes % 6.0 L Monocytes % 11.7 Eosinophils % 0.3 Basophils % 0.3 Absolute Neutrophils 13.5 H Absolute Lymphocytes 1.0 Absolute Monocytes 1.9 H Absolute Eosinophils 0.1 Absolute Basophils 0.1 Sodium 136.9 L Potassium 4.3 Chloride 104 Carbon Dioxide 23 Anion Gap 10 BUN 38 H Creatinine 2.18 H Est GFR ( Amer) 36 L Est GFR (Non-Af Amer) 29 L Glucose 132 H Calcium 9.2 Total Bilirubin 0.9 AST 29 ALT 21 Alkaline Phosphatase 59 Total Protein 7.1 Albumin 3.7 Urine Color AMPARO Urine Appearance SLIGHTLY-CLOUDY Urine pH 5.0 Ur Specific Cliff 1.023 Urine Protein NEGATIVE Urine Glucose (UA) NEGATIVE Urine Ketones TRACE H Urine Blood NEGATIVE Urine Nitrite NEGATIVE Ur Leukocyte Esterase NEGATIVE Urine WBC (Auto) 2 Urine RBC (Auto) 2 06/13/18 20:35 Troponin I 0.020 Impressions: Chest X-Ray 06/13/18 20:25 IMPRESSION: Right lung base opacity which may represent pneumonia. Assessment & Plan - Diagnosis (1) Pneumonia of right lower lobe due to infectious organism Is this a current diagnosis for this admission?: Yes Plan: See admitting physician orders. (2) Acute kidney injury superimposed on chronic kidney disease Is this a current diagnosis for this admission?: Yes Plan: See admitting physician orders. (3) COPD (chronic obstructive pulmonary disease) Qualifiers: COPD type: unspecified COPD Qualified Code(s): J44.9 - Chronic obstructive pulmonary disease, unspecified Is this a current diagnosis for this admission?: Yes Plan: See admitting physician orders. (4) HTN (hypertension) Qualifiers: Hypertension type: essential hypertension Qualified Code(s): I10 - Essential (primary) hypertension Is this a current diagnosis for this admission?: Yes Plan: See admitting physician orders. (5) BPH loc w urin obs/LUTS Is this a current diagnosis for this admission?: Yes Plan: See admitting physician orders. (6) Diastolic CHF Qualifiers: Heart failure chronicity: chronic Qualified Code(s): I50.32 - Chronic diastolic (congestive) heart failure Is this a current diagnosis for this admission?: Yes Plan: See admitting physician orders. - Time Time Spent: 50 to 70 Minutes Medications reviewed and adjusted accordingly: Yes Anticipated discharge: Home with Homehealth Within: Other - Inpatient Certification Based on my medical assessment, after consideration of the patient's comorbidities, presenting symptoms, or acuity I expect that the services needed warrant INPATIENT care.: Yes I certify that my determination is in accordance with my understanding of Medicare's requirements for reasonable and necessary INPATIENT services [42 CFR 412.3e].: Yes Medical Necessity: Significant Comorbidiites Make Outpatient Treatment Too Risky, Need Close Monitoring Due to Risk of Patient Decompensation, Need For Continuous Telemetry Monitoring, Need for Nebulizer Therapy and Monitoring of Response, Need for IV Antibiotics, Risk of Complication if Not Cared For in Hospital, Risk of Diagnosis Which Will Require Inpatient Eval/Care/Monitoring Post Hospital Care: D/C Manager Electrical Documentation - Plan Summary Plan Summary: See admitting physician orders.
[2018-06-14 16:36] LABS: CREATINE KINASE MB 2.21 ng/mL (<4.55); NT PRO BNP 1190 pg/mL (<450); TROPONIN I < 0.012 ng/mL
[2018-06-14] MEDS: IPRATROPIUM/ALBUTEROL 0.5-2.5 MG/3 ML AMPUL NEB PRN (16:54)
[2018-06-14] MEDS: TAMSULOSIN HCL 0.4 MG CAP.SR.24H PO SCH (17:52)
[2018-06-14] MEDS: CEFTRIAXONE 1 GM/D5W RTU 1 GM/50 ML RTUPB IV SCH (17:53)
[2018-06-14] MEDS ORDERED: (PENDING PHARMACY ID) (Tiotropium Bromide [Spiriva Respimat] 2 PUFF) IH SCH (22:00)
[2018-06-14] MEDS: AZITHROMYCIN 500 MG in DEXTROSE 5%-WATER 250 ML IV SCH (22:37)
[2018-06-15 05:19] LABS: ABSOLUTE BASOPHILS # (AUTO) 0.1 10^3/uL (0.0-0.2); ABSOLUTE EOSINOPHILS # (AUTO) 0.3 10^3/uL (0.0-0.6); ABSOLUTE LYMPHOCYTES (AUTO) 1.1 10^3/uL (0.5-4.7); ABSOLUTE MONOCYTES (AUTO) 1.8 10^3/uL (0.1-1.4); ABSOLUTE NEUT (AUTO) 6.9 10^3/uL (1.7-8.2); BASOPHILS % (AUTO) 0.8 % (0-2); EOSINOPHILS % (AUTO) 2.6 % (0-6); HEMATOCRIT 34.2 % (37.9-51.0); HEMOGLOBIN 11.3 g/dL (13.5-17.0); LYMPHOCYTES % (AUTO) 10.8 % (13-45); MEAN CORPUSCULAR HEMOGLOBIN 29.4 pg (27.0-33.4); MEAN CORPUSCULAR HGB CONC 33.1 g/dL (32.0-36.0); MEAN CORPUSCULAR VOLUME 89 fl (80-97); MONOCYTES % (AUTO) 17.8 % (3-13); PLATELET COUNT 176 10^3/uL (150-450); RED BLOOD COUNT 3.85 10^6/uL (4.35-5.55); RED CELL DISTRIBUTION WIDTH 14.2 % (11.5-14.0); TOTAL CELLS COUNTED % (AUTO) 100 %; WHITE BLOOD COUNT 10.2 10^3/uL (4.0-10.5)
[2018-06-15 05:39] LABS: ALANINE AMINOTRANSFERASE 22 U/L (21-72); ALKALINE PHOSPHATASE 65 U/L (38-126); ANION GAP 9 (5-19); ASPARTATE AMINO TRANSFERASE 21 U/L (17-59); BILIRUBIN,DIRECT 0.3 mg/dL (0.0-0.4); BILIRUBIN,TOTAL 0.4 mg/dL (0.2-1.3); BLOOD UREA NITROGEN 35 mg/dL (7-20); CALCIUM 8.4 mg/dL (8.4-10.2); CARBON DIOXIDE 21 mmol/L (22-30); CHLORIDE 109 mmol/L (98-107); GLUCOSE 108 mg/dL (75-110); POTASSIUM 4.2 mmol/L (3.6-5.0); SODIUM 139.2 mmol/L (137-145); TOTAL PROTEIN 5.8 g/dL (6.3-8.2)
[2018-06-15] MEDS: FINASTERIDE 5 MG TABLET PO SCH (09:21)
[2018-06-15] MEDS: FLUTICASONE/VILANTEROL 200-25 MCG/DOSE IH SCH (09:22)
[2018-06-15] MEDS: ASPIRIN 81 MG TABLET, ENT COATED PO SCH (09:22)
[2018-06-15] MEDS: CETIRIZINE 10 MG TABLET PO SCH (09:22)
[2018-06-15] MEDS: FLUTICASONE NASAL SPRAY 50 MCG/SPRY 120 SPRAY/16 GM NASL SCH (09:22)
[2018-06-15] MEDS ORDERED: HYDROCHLOROTHIAZIDE 25 MG TABLET PO SCH (10:00)
[2018-06-15] MEDS ORDERED: VALSARTAN 160 MG TABLET PO SCH (10:00)
[2018-06-15] MEDS ORDERED: NORMAL SALINE 1000 ML 250 ML IV ONE (14:01)
--- NOTE | 2018-06-15 14:06 | PDOC PROGRESS REPORT ---
Subjective Progress Note for:: 06/15/18 Subjective:: Nursing staff reported positional tachycardia with getting up from bed. Patient denied palpitation, chest pain or difficulty with breathing. No fever or chills. Reason For Visit: RIGHT LOWER LOBE PNEUMONIA,COPD,BPH,HYPERTENSION, Physical Exam Vital Signs: Temp Pulse Resp BP Pulse Ox 98.8 F 103 H 20 104/32 L 95 06/15/18 03:23 06/15/18 07:00 06/15/18 03:23 06/15/18 03:23 06/15/18 03:23 Intake & Output 06/14/18 06/15/18 06/16/18 06:59 06:59 06:59 Intake Total 550 1537 Output Total 0 Balance 550 1537 Weight 90.8 kg 94.4 kg General appearance: PRESENT: no acute distress Head exam: PRESENT: atraumatic, normocephalic Eye exam: PRESENT: conjunctiva pink. ABSENT: scleral icterus Mouth exam: PRESENT: moist Respiratory exam: PRESENT: crackles - scattered right >> left side, decreased breath sounds - at lung bases Cardiovascular exam: PRESENT: RRR. ABSENT: diastolic murmur, rubs, systolic murmur Vascular exam: ABSENT: pallor GI/Abdominal exam: PRESENT: normal bowel sounds, soft. ABSENT: distended, guarding, mass, organolmegaly, rebound, tenderness Extremities exam: ABSENT: pedal edema Neurological exam: PRESENT: alert, awake, oriented to person, oriented to place, oriented to time, oriented to situation, CN II-XII grossly intact. ABSENT: motor sensory deficit Psychiatric exam: PRESENT: appropriate affect, normal mood. ABSENT: homicidal i deation, suicidal ideation Skin exam: PRESENT: dry, warm Results Laboratory Results: 06/15/18 04:06 06/15/18 04:06 06/14/18 06/15/18 06/15/18 16:15 04:06 04:06 WBC 10.2 RBC 3.85 L Hgb 11.3 L Hct 34.2 L MCV 89 MCH 29.4 MCHC 33.1 RDW 14.2 H Plt Count 176 Seg Neutrophils % 68.0 Lymphocytes % 10.8 L Monocytes % 17.8 H Eosinophils % 2.6 Basophils % 0.8 Absolute Neutrophils 6.9 Absolute Lymphocytes 1.1 Absolute Monocytes 1.8 H Absolute Eosinophils 0.3 Absolute Basophils 0.1 Sodium 139.2 Potassium 4.2 Chloride 109 H Carbon Dioxide 21 L Anion Gap 9 BUN 35 H Creatinine 1.97 H Est GFR ( Amer) 40 L Est GFR (Non-Af Amer) 33 L Glucose 108 Calcium 8.4 Magnesium 1.8 Total Bilirubin 0.4 AST 21 ALT 22 Alkaline Phosphatase 65 Total Protein 5.8 L Albumin 3.0 L 06/13/18 06/14/18 06/14/18 20:35 15:52 15:52 Creatine Kinase 109 CK-MB (CK-2) 2.21 Troponin I 0.020 < 0.012 NT-Pro-B Natriuret Pep 1190 H Impressions: Chest X-Ray 06/13/18 20:25 IMPRESSION: Right lung base opacity which may represent pneumonia. Assessment & Plan - Diagnosis (1) Pneumonia of right lower lobe due to infectious organism Is this a current diagnosis for this admission?: Yes (2) Acute kidney injury superimposed on chronic kidney disease Is this a current diagnosis for this admission?: Yes (3) COPD (chronic obstructive pulmonary disease) Qualifiers: COPD type: unspecified COPD Qualified Code(s): J44.9 - Chronic obstructive pulmonary disease, unspecified Is this a current diagnosis for this admission?: Yes (4) HTN (hypertension) Qualifiers: Hypertension type: essential hypertension Qualified Code(s): I10 - Essential (primary) hypertension Is this a current diagnosis for this admission?: Yes (5) BPH loc w urin obs/LUTS Is this a current diagnosis for this admission?: Yes (6) Diastolic CHF Qualifiers: Heart failure chronicity: chronic Qualified Code(s): I50.32 - Chronic diastolic (congestive) heart failure Is this a current diagnosis for this admission?: Yes - Time Time Spent with patient: 25-34 minutes Medications reviewed and adjusted accordingly: Yes Anticipated discharge: Home Within: Other - Inpatient Certification Based on my medical assessment, after consideration of the patient's comorbidities, presenting symptoms, or acuity I expect that the services needed warrant INPATIENT care.: Yes I certify that my determination is in accordance with my understanding of Medicare's requirements for reasonable and necessary INPATIENT services [42 CFR 412.3e].: Yes Medical Necessity: Significant Comorbidiites Make Outpatient Treatment Too Risky, Need Close Monitoring Due to Risk of Patient Decompensation, Need For IV Fluids, Need For Continuous Telemetry Monitoring, Need for IV Antibiotics, Risk of Complication if Not Cared For in Hospital, Risk of Diagnosis Which Will Require Inpatient Eval/Care/Monitoring Post Hospital Care: D/C Freelance Programmer/App Developer Documentation - Plan Summary Plan Summary: Maintain on IV Rocephin and Azithromycin coverage. Sputum gram stain in growing gram negative ginette. IV normal saline 250 ml bolus. Increase IV rate to 75ml/hour. Continue all other current medication management. Follow up on culture findings.
[2018-06-15] MEDS: NORMAL SALINE 1000 ML 1,000 ML IV PRN (14:52)
[2018-06-15] MEDS: TAMSULOSIN HCL 0.4 MG CAP.SR.24H PO SCH (17:30)
[2018-06-15] MEDS: CEFTRIAXONE 1 GM/D5W RTU 1 GM/50 ML RTUPB IV SCH (17:30)
[2018-06-15] MEDS: AZITHROMYCIN 500 MG in DEXTROSE 5%-WATER 250 ML IV SCH (21:35)
[2018-06-16] MEDS: IPRATROPIUM/ALBUTEROL 0.5-2.5 MG/3 ML AMPUL NEB PRN ×2 (02:06→17:27)
[2018-06-16 05:24] LABS: ABSOLUTE BASOPHILS # (AUTO) 0.1 10^3/uL (0.0-0.2); ABSOLUTE EOSINOPHILS # (AUTO) 0.3 10^3/uL (0.0-0.6); ABSOLUTE LYMPHOCYTES (AUTO) 0.8 10^3/uL (0.5-4.7); ABSOLUTE MONOCYTES (AUTO) 1.6 10^3/uL (0.1-1.4); ABSOLUTE NEUT (AUTO) 5.5 10^3/uL (1.7-8.2); BASOPHILS % (AUTO) 0.8 % (0-2); EOSINOPHILS % (AUTO) 3.4 % (0-6); HEMATOCRIT 33.4 % (37.9-51.0); HEMOGLOBIN 10.9 g/dL (13.5-17.0); LYMPHOCYTES % (AUTO) 10.2 % (13-45); MEAN CORPUSCULAR HEMOGLOBIN 29.2 pg (27.0-33.4); MEAN CORPUSCULAR HGB CONC 32.7 g/dL (32.0-36.0); MEAN CORPUSCULAR VOLUME 89 fl (80-97); MONOCYTES % (AUTO) 19.4 % (3-13); PLATELET COUNT 199 10^3/uL (150-450); RED BLOOD COUNT 3.74 10^6/uL (4.35-5.55); RED CELL DISTRIBUTION WIDTH 14.2 % (11.5-14.0); SEGMENTED NEUTROPHILS % (AUTO) 66.2 % (42-78); TOTAL CELLS COUNTED % (AUTO) 100 %; WHITE BLOOD COUNT 8.3 10^3/uL (4.0-10.5)
[2018-06-16 05:47] LABS: ANION GAP 8 (5-19); BLOOD UREA NITROGEN 31 mg/dL (7-20); CALCIUM 8.3 mg/dL (8.4-10.2); CARBON DIOXIDE 23 mmol/L (22-30); CHLORIDE 110 mmol/L (98-107); GLUCOSE 106 mg/dL (75-110); POTASSIUM 4.3 mmol/L (3.6-5.0); SODIUM 140.9 mmol/L (137-145)
[2018-06-16] MEDS: NORMAL SALINE 1000 ML 1,000 ML IV PRN ×2 (06:17→21:12)
[2018-06-16] MEDS: FLUTICASONE/VILANTEROL 200-25 MCG/DOSE IH SCH (10:12)
[2018-06-16] MEDS: FLUTICASONE NASAL SPRAY 50 MCG/SPRY 120 SPRAY/16 GM NASL SCH (10:13)
[2018-06-16] MEDS: FINASTERIDE 5 MG TABLET PO SCH (10:14)
[2018-06-16] MEDS: CETIRIZINE 10 MG TABLET PO SCH (10:14)
[2018-06-16] MEDS: ASPIRIN 81 MG TABLET, ENT COATED PO SCH (10:15)
[2018-06-16] MEDS: CEFTRIAXONE 1 GM/D5W RTU 1 GM/50 ML RTUPB IV SCH (17:47)
[2018-06-16] MEDS: TAMSULOSIN HCL 0.4 MG CAP.SR.24H PO SCH (17:47)
--- NOTE | 2018-06-16 18:48 | PDOC PROGRESS REPORT ---
Subjective Progress Note for:: 06/16/18 Subjective:: Patient denied chest pain or difficulty with breathing. No fever or chills. No nausea, vomiting, or abdominal pain. Reason For Visit: RIGHT LOWER LOBE PNEUMONIA,COPD,BPH,HYPERTENSION, Physical Exam Vital Signs: Temp Pulse Resp BP Pulse Ox 98.6 F 110 H 16 126/64 H 96 06/16/18 07:21 06/16/18 07:21 06/16/18 07:21 06/16/18 07:21 06/16/18 07:21 Intake & Output 06/15/18 06/16/18 06/17/18 06:59 06:59 06:59 Intake Total 1537 2811 Balance 1537 2811 Weight 94.4 kg 95.4 kg Physical Exam: General appearance: PRESENT: no acute distress Head exam: PRESENT: atraumatic, normocephalic Eye exam: PRESENT: conjunctiva pink. ABSENT: pallor, scleral icterus Mouth exam: PRESENT: moist Respiratory exam: PRESENT: crackles - scattered right >> left side, decreased breath sounds - at lung bases Cardiovascular exam: PRESENT: RRR. ABSENT: diastolic murmur, rubs, systolic murmur GI/Abdominal exam: PRESENT: normal bowel sounds, soft. ABSENT: distended, guarding, mass, organomegaly, rebound, tenderness Extremities exam: ABSENT: pedal edema Neurological exam: PRESENT: alert, awake, oriented to person, oriented to place, oriented to time, oriented to situation, CN II-XII grossly intact. ABSENT: motor sensory deficit Psychiatric exam: PRESENT: appropriate affect, normal mood. ABSENT: homicidal ideation, suicidal ideation Skin exam: PRESENT: dry, warm Results Laboratory Results: 06/16/18 04:25 06/16/18 04:25 06/16/18 06/16/18 04:25 04:25 WBC 8.3 RBC 3.74 L Hgb 10.9 L Hct 33.4 L MCV 89 MCH 29.2 MCHC 32.7 RDW 14.2 H Plt Count 199 Seg Neutrophils % 66.2 Lymphocytes % 10.2 L Monocytes % 19.4 H Eosinophils % 3.4 Basophils % 0.8 Absolute Neutrophils 5.5 Absolute Lymphocytes 0.8 Absolute Monocytes 1.6 H Absolute Eosinophils 0.3 Absolute Basophils 0.1 Sodium 140.9 Potassium 4.3 Chloride 110 H Carbon Dioxide 23 Anion Gap 8 BUN 31 H Creatinine 1.75 H Est GFR ( Amer) 46 L Est GFR (Non-Af Amer) 38 L Glucose 106 Calcium 8.3 L 06/14/18 16:05 Sputum Gram Stain - Final 06/13/18 06/14/18 06/14/18 20:35 15:52 15:52 Creatine Kinase 109 CK-MB (CK-2) 2.21 Troponin I 0.020 < 0.012 NT-Pro-B Natriuret Pep 1190 H Impressions: Chest X-Ray 06/13/18 20:25 IMPRESSION: Right lung base opacity which may represent pneumonia. Assessment & Plan - Diagnosis (1) Pneumonia of right lower lobe due to infectious organism Is this a current diagnosis for this admission?: Yes (2) Acute kidney injury superimposed on chronic kidney disease Is this a current diagnosis for this admission?: Yes (3) COPD (chronic obstructive pulmonary disease) Qualifiers: COPD type: unspecified COPD Qualified Code(s): J44.9 - Chronic obstructive pulmonary disease, unspecified Is this a current diagnosis for this admission?: Yes (4) HTN (hypertension) Qualifiers: Hypertension type: essential hypertension Qualified Code(s): I10 - Essential (primary) hypertension Is this a current diagnosis for this admission?: Yes (5) BPH loc w urin obs/LUTS Is this a current diagnosis for this admission?: Yes (6) Diastolic CHF Qualifiers: Heart failure chronicity: chronic Qualified Code(s): I50.32 - Chronic diastolic (congestive) heart failure Is this a current diagnosis for this admission?: Yes - Time Time Spent with patient: 25-34 minutes Medications reviewed and adjusted accordingly: Yes Anticipated discharge: Home Within: Other - Inpatient Certification Based on my medical assessment, after consideration of the patient's comorbidities, presenting symptoms, or acuity I expect that the services needed warrant INPATIENT care.: Yes I certify that my determination is in accordance with my understanding of Medicare's requirements for reasonable and necessary INPATIENT services [42 CFR 412.3e].: Yes Medical Necessity: Significant Comorbidiites Make Outpatient Treatment Too Risky, Need Close Monitoring Due to Risk of Patient Decompensation, Need For IV Fluids, Need For Continuous Telemetry Monitoring, Need for IV Antibiotics, Risk of Complication if Not Cared For in Hospital, Risk of Diagnosis Which Will Require Inpatient Eval/Care/Monitoring Post Hospital Care: D/C Cardiology Tech Documentation - Plan Summary Plan Summary: Continue current medication management. Obtain BMP, CBC with diff in am
[2018-06-16] MEDS: AZITHROMYCIN 250 MG TABLET PO SCH (21:11)
[2018-06-17 05:29] LABS: MEAN CORPUSCULAR HEMOGLOBIN 29.5 pg (27.0-33.4); MEAN CORPUSCULAR HGB CONC 33.2 g/dL (32.0-36.0); MEAN CORPUSCULAR VOLUME 89 fl (80-97); PLATELET COUNT 219 10^3/uL (150-450); RED BLOOD COUNT 3.71 10^6/uL (4.35-5.55); RED CELL DISTRIBUTION WIDTH 14.2 % (11.5-14.0); WHITE BLOOD COUNT 7.1 10^3/uL (4.0-10.5)
[2018-06-17 05:52] LABS: ANION GAP 5 (5-19); BLOOD UREA NITROGEN 26 mg/dL (7-20); CALCIUM 7.5 mg/dL (8.4-10.2); CARBON DIOXIDE 20 mmol/L (22-30); CHLORIDE 113 mmol/L (98-107); GLUCOSE 92 mg/dL (75-110); POTASSIUM 4.5 mmol/L (3.6-5.0); SODIUM 138.4 mmol/L (137-145)
[2018-06-17 06:06] LABS: ABSOLUTE LYMPHOCYTES# (MANUAL) 0.8 10^3/uL (0.5-4.7); ABSOLUTE MONOCYTES # (MANUAL) 1.4 10^3/uL (0.1-1.4); ABSOLUTE NEUTROPHILS# (MANUAL) 4.5 10^3/uL (1.7-8.2); BASOPHILS % (MANUAL) 1 % (0-2); EOSINOPHILS % (MANUAL) 4 % (0-6); LYMPHOCYTES % (MANUAL) 11 % (13-45); METAMYELOCYTES % (MANUAL) 1 % (0); MONOCYTES % (MANUAL) 20 % (3-13); PLATELET COMMENT ADEQUATE; RBC MORPHOLOGY COMMENT NORMO-CYTIC/CHROMIC; SEGMENTED NEUTROPHILS % (MAN) 63 % (42-78); TOTAL CELLS COUNTED 100; TOXIC GRANULATION 1+; TOXIC VACUOLATION PRESENT
[2018-06-17] MEDS ORDERED: METOPROLOL TARTRATE 25 MG TABLET PO ONE (06:15)
--- NOTE | 2018-06-17 07:50 | EKG REPORT ---
SEVERITY:- ABNORMAL ECG - SINUS TACHYCARDIA : Confirmed by: Gustavo Francois MD 17-Jun-2018 07:50:05
[2018-06-17] MEDS: FINASTERIDE 5 MG TABLET PO SCH (09:02)
[2018-06-17] MEDS: ASPIRIN 81 MG TABLET, ENT COATED PO SCH (09:04)
[2018-06-17] MEDS: CETIRIZINE 10 MG TABLET PO SCH (09:04)
[2018-06-17] MEDS: FLUTICASONE/VILANTEROL 200-25 MCG/DOSE IH SCH (09:05)
[2018-06-17] MEDS: FLUTICASONE NASAL SPRAY 50 MCG/SPRY 120 SPRAY/16 GM NASL SCH (09:05)
[2018-06-17] MEDS: IPRATROPIUM/ALBUTEROL 0.5-2.5 MG/3 ML AMPUL NEB PRN (10:17)
[2018-06-17] MEDS: METOPROLOL TARTRATE 25 MG TABLET PO SCH ×2 (12:52→21:35)
[2018-06-17] MEDS: TAMSULOSIN HCL 0.4 MG CAP.SR.24H PO SCH (17:18)
[2018-06-17] MEDS: CEFTRIAXONE 1 GM/D5W RTU 1 GM/50 ML RTUPB IV SCH (17:18)
[2018-06-17] MEDS ORDERED: METOPROLOL TARTRATE 25 MG TABLET PO SCH (18:00)
[2018-06-17] MEDS ORDERED: CALCIUM GLUCONATE 1000 MG/10 ML INJ IV ONE (19:00)
--- NOTE | 2018-06-17 19:01 | PDOC PROGRESS REPORT ---
Subjective Progress Note for:: 06/17/18 Subjective:: Patient had episodes of short runs of SVT since last clinical evaluation. He denied chest pain or difficulty with breathing. No fever or chills. No nausea, vomiting, or abdominal pain. Reason For Visit: RIGHT LOWER LOBE PNEUMONIA,COPD,BPH,HYPERTENSION, Physical Exam Vital Signs: Temp Pulse Resp BP Pulse Ox 98.4 F 95 20 124/60 94 06/17/18 03:49 06/17/18 07:00 06/17/18 03:49 06/17/18 03:49 06/17/18 03:49 Intake & Output 06/16/18 06/17/18 06/18/18 06:59 06:59 06:59 Intake Total 2811 1822 Output Total 150 Balance 2811 1672 Weight 95.4 kg 96.2 kg Physical Exam: General appearance: PRESENT: no acute distress Head exam: PRESENT: atraumatic, normocephalic Eye exam: PRESENT: conjunctiva pink. ABSENT: pallor, scleral icterus Mouth exam: PRESENT: moist Respiratory exam: PRESENT: decreased breath sounds - at lung bases Cardiovascular exam: PRESENT: RRR. ABSENT: diastolic murmur, rubs, systolic mur mur GI/Abdominal exam: PRESENT: normal bowel sounds, soft. ABSENT: distended, guarding, mass, organomegaly, rebound, tenderness Extremities exam: ABSENT: pedal edema Neurological exam: PRESENT: alert, awake, oriented to person, oriented to place, oriented to time, oriented to situation, CN II-XII grossly intact. ABSENT: motor sensory deficit Psychiatric exam: PRESENT: appropriate affect, normal mood. ABSENT: homicidal ideation, suicidal ideation Skin exam: PRESENT: dry, warm Results Laboratory Results: 06/17/18 04:21 06/17/18 04:21 06/17/18 06/17/18 04:21 04:21 WBC 7.1 RBC 3.71 L Hgb 11.0 L Hct 33.0 L MCV 89 MCH 29.5 MCHC 33.2 RDW 14.2 H Plt Count 219 Seg Neutrophils % Not Reportable Lymphocytes % Not Reportable Monocytes % Not Reportable Eosinophils % Not Reportable Basophils % Not Reportable Absolute Neutrophils Not Reportable Absolute Lymphocytes Not Reportable Absolute Monocytes Not Reportable Absolute Eosinophils Not Reportable Absolute Basophils Not Reportable Sodium 138.4 Potassium 4.5 Chloride 113 H Carbon Dioxide 20 L Anion Gap 5 BUN 26 H Creatinine 1.38 H Est GFR ( Amer) > 60 Est GFR (Non-Af Amer) 50 L Glucose 92 Calcium 7.5 L 06/14/18 16:05 Sputum Gram Stain - Final 06/14/18 16:05 Sputum Sputum Culture - Final Klebsiella Pneumoniae Normal Xi 06/13/18 06/14/18 06/14/18 20:35 15:52 15:52 Creatine Kinase 109 CK-MB (CK-2) 2.21 Troponin I 0.020 < 0.012 NT-Pro-B Natriuret Pep 1190 H Impressions: Chest X-Ray 06/13/18 20:25 IMPRESSION: Right lung base opacity which may represent pneumonia. Assessment & Plan - Diagnosis (1) Pneumonia of right lower lobe due to infectious organism Is this a current diagnosis for this admission?: Yes (2) Acute kidney injury superimposed on chronic kidney disease Is this a current diagnosis for this admission?: Yes (3) COPD (chronic obstructive pulmonary disease) Qualifiers: COPD type: unspecified COPD Qualified Code(s): J44.9 - Chronic obstructive pulmonary disease, unspecified Is this a current diagnosis for this admission?: Yes (4) HTN (hypertension) Qualifiers: Hypertension type: essential hypertension Qualified Code(s): I10 - Essential (primary) hypertension Is this a current diagnosis for this admission?: Yes (5) BPH loc w urin obs/LUTS Is this a current diagnosis for this admission?: Yes (6) Diastolic CHF Qualifiers: Heart failure chronicity: chronic Qualified Code(s): I50.32 - Chronic diastolic (congestive) heart failure Is this a current diagnosis for this admission?: Yes - Time Time Spent with patient: 25-34 minutes Medications reviewed and adjusted accordingly: Yes Anticipated discharge: Home with Homehealth Within: Other - Inpatient Certification Based on my medical assessment, after consideration of the patient's comorbidities, presenting symptoms, or acuity I expect that the services needed warrant INPATIENT care.: Yes I certify that my determination is in accordance with my understanding of Medicare's requirements for reasonable and necessary INPATIENT services [42 CFR 412.3e].: Yes Medical Necessity: Significant Comorbidiites Make Outpatient Treatment Too Risky, Need Close Monitoring Due to Risk of Patient Decompensation, Need For IV Fluids, Need For Continuous Telemetry Monitoring, Need for Nebulizer Therapy and Monitoring of Response, Need for IV Antibiotics, Risk of Complication if Not Cared For in Hospital, Risk of Diagnosis Which Will Require Inpatient Eval/Care/Monitoring Post Hospital Care: D/C Tub Attendant Documentation - Plan Summary Plan Summary: Continue IV Rocephin and Zithromax coverage. Started on metoprolol 25 mg p.o q12 hours. Obtain ionized calcium and albumin level in view of his hypocalcemia and frequent SVTs. Replace calcium if indicated. Continue other current medication management and IV fluid support. Repeat BMP in am.
[2018-06-17] MEDS: AZITHROMYCIN 250 MG TABLET PO SCH (21:34)
[2018-06-18] MEDS: NORMAL SALINE 1000 ML 1,000 ML IV PRN ×2 (03:39→21:05)
[2018-06-18 05:53] LABS: ANION GAP 6 (5-19); BLOOD UREA NITROGEN 24 mg/dL (7-20); CARBON DIOXIDE 22 mmol/L (22-30); CHLORIDE 112 mmol/L (98-107); GLUCOSE 98 mg/dL (75-110); SODIUM 139.9 mmol/L (137-145)
[2018-06-18] MEDS: FLUTICASONE/VILANTEROL 200-25 MCG/DOSE IH SCH (09:32)
[2018-06-18] MEDS: FLUTICASONE NASAL SPRAY 50 MCG/SPRY 120 SPRAY/16 GM NASL SCH (09:32)
[2018-06-18] MEDS: METOPROLOL TARTRATE 25 MG TABLET PO SCH ×3 (09:33→21:06)
[2018-06-18] MEDS: ASPIRIN 81 MG TABLET, ENT COATED PO SCH (09:34)
[2018-06-18] MEDS: FINASTERIDE 5 MG TABLET PO SCH (09:34)
[2018-06-18] MEDS: CETIRIZINE 10 MG TABLET PO SCH (09:34)
[2018-06-18] MEDS: IPRATROPIUM/ALBUTEROL 0.5-2.5 MG/3 ML AMPUL NEB PRN (10:01)
--- NOTE | 2018-06-18 11:20 | RADIOLOGY REPORT (SQ) ---
EXAM DESCRIPTION: CHEST 2 VIEWS COMPLETED DATE/TIME: 06/18/2018 9:18 am REASON FOR STUDY: RLL pneumonia COMPARISON: 06/13/2018 EXAM PARAMETERS: NUMBER OF VIEWS: two views TECHNIQUE: Digital Frontal and Lateral radiographic views of the chest acquired. RADIATION DOSE: NA LIMITATIONS: none FINDINGS: LUNGS AND PLEURA: Segmental airspace disease right lower lobe with interval increase in ov erall density. No evidence cavitation. The left lung is clear. MEDIASTINUM AND HILAR STRUCTURES: No masses or contour abnormalities. HEART AND VASCULAR STRUCTURES: Heart normal size. No evidence for failure. BONES: No acute findings. HARDWARE: None in the chest. OTHER: No other significant finding. IMPRESSION: Rehydration versus progressing right lower lobe pneumonia. TECHNICAL DOCUMENTATION: JOB ID: [id number] [employer]- All Rights Reserved Reading location - IP/workstation name: [email or web address]
[2018-06-18] MEDS: TAMSULOSIN HCL 0.4 MG CAP.SR.24H PO SCH (17:25)
[2018-06-18] MEDS: CEFTRIAXONE 1 GM/D5W RTU 1 GM/50 ML RTUPB IV SCH (17:25)
--- NOTE | 2018-06-18 17:59 | PDOC PROGRESS REPORT ---
Subjective Progress Note for:: 06/18/18 Subjective:: Patient denied chest pain or difficulty with breathing. No fever or chills. No nausea, vomiting, or abdominal pain. Reason For Visit: RIGHT LOWER LOBE PNEUMONIA,COPD,BPH,HYPERTENSION, Physical Exam Vital Signs: Temp Pulse Resp BP Pulse Ox 99.1 F 99 18 135/63 H 98 06/18/18 15:30 06/18/18 15:30 06/18/18 15:30 06/18/18 15:30 06/18/18 15:30 Intake & Output 06/17/18 06/18/18 06/19/18 06:59 06:59 06:59 Intake Total 1822 1761 709 Output Total 150 Balance 1672 1761 709 Weight 96.2 kg 96.1 kg Physical Exam: General appearance: PRESENT: no acute distress Head exam: PRESENT: atraumatic, normocephalic Eye exam: PRESENT: conjunctiva pink. ABSENT: pallor, scleral icterus Mouth exam: PRESENT: moist Respiratory exam: PRESENT: decreased breath sounds - at lung bases Cardiovascular exam: PRESENT: RRR. ABSENT: diastolic murmur, rubs, systolic murmur GI/Abdominal exam: PRESENT: normal bowel sounds, soft. ABSENT: distended, guarding, mass, organomegaly, rebound, tenderness Extremities exam: ABSENT: pedal edema Neurological exam: PRESENT: alert, awake, oriented to person, oriented to place, oriented to time, oriented to situation, CN II-XII grossly intact. ABSENT: motor sensory deficit Psychiatric exam: PRESENT: appropriate affect, normal mood. ABSENT: homicidal ideation, suicidal ideation Skin exam: PRESENT: dry, warm Results Laboratory Results: 06/17/18 04:21 06/18/18 04:27 06/18/18 04:27 Sodium 139.9 Potassium 5.0 Chloride 112 H Carbon Dioxide 22 Anion Gap 6 BUN 24 H Creatinine 1.49 H Est GFR ( Amer) 55 L Est GFR (Non-Af Amer) 46 L Glucose 98 Calcium 9.0 06/13/18 06/14/18 06/14/18 20:35 15:52 15:52 Creatine Kinase 109 CK-MB (CK-2) 2.21 Troponin I 0.020 < 0.012 NT-Pro-B Natriuret Pep 1190 H Impressions: Chest X-Ray 06/18/18 00:00 IMPRESSION: Rehydration versus progressing right lower lobe pneumonia. Assessment & Plan - Diagnosis (1) Pneumonia of right lower lobe due to infectious organism Is this a current diagnosis for this admission?: Yes (2) Acute kidney injury superimposed on chronic kidney disease Is this a current diagnosis for this admission?: Yes (3) COPD (chronic obstructive pulmonary disease) Qualifiers: COPD type: unspecified COPD Qualified Code(s): J44.9 - Chronic obstructive pulmonary disease, unspecified Is this a current diagnosis for this admission?: Yes (4) HTN (hypertension) Qualifiers: Hypertension type: essential hypertension Qualified Code(s): I10 - Essential (primary) hypertension Is this a current diagnosis for this admission?: Yes (5) BPH loc w urin obs/LUTS Is this a current diagnosis for this admission?: Yes (6) Diastolic CHF Qualifiers: Heart failure chronicity: chronic Qualified Code(s): I50.32 - Chronic diastolic (congestive) heart failure Is this a current diagnosis for this admission?: Yes - Time Time Spent with patient: 25-34 minutes Medications reviewed and adjusted accordingly: Yes Anticipated discharge: Home with Homehealth Within: Other - Inpatient Certification Based on my medical assessment, after consideration of the patient's comorbiditi es, presenting symptoms, or acuity I expect that the services needed warrant INPATIENT care.: Yes I certify that my determination is in accordance with my understanding of [facility]'s requirements for reasonable and necessary INPATIENT services [42 CFR 412.3e].: Yes Medical Necessity: Significant Comorbidiites Make Outpatient Treatment Too Risky, Need Close Monitoring Due to Risk of Patient Decompensation, Need For IV Fluids, Need For Continuous Telemetry Monitoring, Need for IV Antibiotics, Risk of Complication if Not Cared For in Hospital, Risk of Diagnosis Which Will Require Inpatient Eval/Care/Monitoring - Plan Summary Plan Summary: Continue IV Rocephin and Azithromycin. Follow up on BNP if creatinine is less than 1.[address] chest with contrast tomorrow. Maintainon all other current medication management.
[2018-06-18] MEDS: AZITHROMYCIN 250 MG TABLET PO SCH (21:06)
[2018-06-19 05:09] LABS: ABSOLUTE BASOPHILS # (AUTO) 0.1 10^3/uL (0.0-0.2); ABSOLUTE EOSINOPHILS # (AUTO) 0.3 10^3/uL (0.0-0.6); ABSOLUTE LYMPHOCYTES (AUTO) 0.6 10^3/uL (0.5-4.7); ABSOLUTE MONOCYTES (AUTO) 1.4 10^3/uL (0.1-1.4); BASOPHILS % (AUTO) 0.8 % (0-2); HEMATOCRIT 32.8 % (37.9-51.0); HEMOGLOBIN 10.8 g/dL (13.5-17.0); LYMPHOCYTES % (AUTO) 7.7 % (13-45); MEAN CORPUSCULAR HEMOGLOBIN 29.5 pg (27.0-33.4); MEAN CORPUSCULAR HGB CONC 33.1 g/dL (32.0-36.0); MEAN CORPUSCULAR VOLUME 89 fl (80-97); MONOCYTES % (AUTO) 16.6 % (3-13); PLATELET COUNT 254 10^3/uL (150-450); RED BLOOD COUNT 3.67 10^6/uL (4.35-5.55); RED CELL DISTRIBUTION WIDTH 13.8 % (11.5-14.0); SEGMENTED NEUTROPHILS % (AUTO) 70.9 % (42-78); TOTAL CELLS COUNTED % (AUTO) 100 %; WHITE BLOOD COUNT 8.4 10^3/uL (4.0-10.5)
[2018-06-19 05:37] LABS: ANION GAP 7 (5-19); BLOOD UREA NITROGEN 24 mg/dL (7-20); CALCIUM 8.8 mg/dL (8.4-10.2); CARBON DIOXIDE 22 mmol/L (22-30); CHLORIDE 111 mmol/L (98-107); GLUCOSE 93 mg/dL (75-110); POTASSIUM 4.9 mmol/L (3.6-5.0); SODIUM 139.9 mmol/L (137-145)
[2018-06-19] MEDS: ASPIRIN 81 MG TABLET, ENT COATED PO SCH (09:08)
[2018-06-19] MEDS: FINASTERIDE 5 MG TABLET PO SCH (09:08)
[2018-06-19] MEDS: METOPROLOL TARTRATE 25 MG TABLET PO SCH (09:08)
[2018-06-19] MEDS: CETIRIZINE 10 MG TABLET PO SCH (09:09)
[2018-06-19] MEDS: FLUTICASONE NASAL SPRAY 50 MCG/SPRY 120 SPRAY/16 GM NASL SCH (09:09)
[2018-06-19] MEDS: FLUTICASONE/VILANTEROL 200-25 MCG/DOSE IH SCH (09:09)
--- NOTE | 2018-06-19 15:14 | RADIOLOGY REPORT (SQ) ---
EXAM DESCRIPTION: CT CHEST WITH COMPLETED DATE/TIME: 06/19/2018 2:53 pm REASON FOR STUDY: Abnormal chest X ray COMPARISON: 06/18/2018 TECHNIQUE: CT scan of the chest performed using helical scanning technique with dynamic intravenous contrast injection. Images reviewed with lung, soft tissue and bone windows. Reconstructed coronal and sagittal MPR and MIP images reviewed. All images stored on PACS. All CT scanners at this facility use dose modulation, iterative reconstruction, and/or weight based d osing when appropriate to reduce radiation dose to as low as reasonably achievable (ALARA). [facility]: Dose Right [facility]: CareDose [facility]: Dose Right [facility]: Teradose 4D [facility]: Cytheris CONTRAST TYPE AND DOSE: contrast/concentration: Isovue 300.00 mg/ml; Total Contrast Delivered: 80.0 ml; Total Saline Delivered: 55.0 ml RENAL FUNCTION: BUN 24, creatinine 1.34 RADIATION DOSE: CT Rad equipment meets quality standard of care and radiation dose reduction techniq ues were employed. CTDIvol: 10.0 mGy. DLP: 457 mGy-cm. . LIMITATIONS: None. FINDINGS: LUNGS AND PLEURA: There is a small right pleural effusion. There is right lower lobe airs pace disease consistent with pneumonia. There is a small left effusion and minimal left basilar atel ectasis. There is mild bilateral centrilobular emphysema. HILAR AND MEDIASTINAL STRUCTURES: No identified masses or abnormal nodes. HEART AND VASCULAR STRUCTURES: No aneurysm or dissection. No central pulmonary emboli. No pericardi al effusion. HARDWARE: None in the chest. UPPER ABDOMEN: There is nonspecific bilateral perinephric stranding. There is a cortical cyst on the left. THYROID AND OTHER SOFT TISSUES: No masses. No adenopathy. BONES: No significant finding. OTHER: No other significant finding. IMPRESSION: Dense consolidation in the right lower lobe with extensive interstitial airspace disease . Findings are consistent with pneumonia. Centrilobular emphysema. Small pleural effusions right g reater than left. TECHNICAL DOCUMENTATION: JOB ID: [id number] Quality ID # [id number]: Final reports with documentation of one or more dose reduction techniques (e.g., Au tomated exposure control, adjustment of the mA and/or kV according to patient size, use of iterative reconstruction technique) 2010 [employer]- All Rights Reserved Reading location - IP/workstation name: [email or web address]
[2018-06-19] MEDS: CEFTRIAXONE SODIUM 1,000 MG in DEXTROSE 5%-WATER 50 ML IV SCH (17:24)
[2018-06-19] MEDS: TAMSULOSIN HCL 0.4 MG CAP.SR.24H PO SCH (17:25)
[2018-06-19] MEDS: NORMAL SALINE 1000 ML 1,000 ML IV PRN (17:25)
--- NOTE | 2018-06-19 18:16 | PDOC PROGRESS REPORT ---
Subjective Progress Note for:: 06/19/18 Subjective:: Patient denied fever, chills, chest pain or difficulty with breathing. No nausea, vomiting, or abdominal pain. Appetite and po intake fair. No constipation. Reason For Visit: RIGHT LOWER LOBE PNEUMONIA,COPD,BPH,HYPERTENSION, Physical Exam Vital Signs: Temp Pulse Resp BP Pulse Ox 98.4 F 109 H 18 106/81 94 06/19/18 15:04 06/19/18 15:04 06/19/18 15:04 06/19/18 15:04 06/19/18 15:04 Intake & Output 06/18/18 06/19/18 06/20/18 06:59 06:59 06:59 Intake Total 1761 2359 1475 Balance 1761 2359 1475 Weight 96.1 kg 96.9 kg Physical Exam: General appearance: PRESENT: no acute distress Head exam: PRESENT: atraumatic, normocephalic Eye exam: PRESENT: conjunctiva pink. ABSENT: pallor, scleral icterus Mouth exam: PRESENT: moist Respiratory exam: PRESENT: decreased breath sounds - at lung bases Cardiovascular exam: PRESENT: RRR. ABSENT: diastolic murmur, rubs, systolic murmur GI/Abdominal exam: PRESENT: normal bowel sounds, soft. ABSENT: distended, guarding, mass, organomegaly, rebound, tenderness Extremities exam: ABSENT: pedal edema Neurological exam: PRESENT: alert, awake, oriented to person, oriented to place, oriented to time, oriented to situation, CN II-XII grossly intact. ABSENT: motor sensory deficit Psychiatric exam: PRESENT: appropriate affect, normal mood. ABSENT: homicidal ideation, suicidal ideation Skin exam: PRESENT: dry, warm Results Laboratory Results: 06/19/18 04:07 06/19/18 04:07 06/19/18 06/19/18 04:07 04:07 WBC 8.4 RBC 3.67 L Hgb 10.8 L Hct 32.8 L MCV 89 MCH 29.5 MCHC 33.1 RDW 13.8 Plt Count 254 Seg Neutrophils % 70.9 Lymphocytes % 7.7 L Monocytes % 16.6 H Eosinophils % 4.0 Basophils % 0.8 Absolute Neutrophils 6.0 Absolute Lymphocytes 0.6 Absolute Monocytes 1.4 Absolute Eosinophils 0.3 Absolute Basophils 0.1 Sodium 139.9 Potassium 4.9 Chloride 111 H Carbon Dioxide 22 Anion Gap 7 BUN 24 H Creatinine 1.34 H Est GFR ( Amer) > 60 Est GFR (Non-Af Amer) 52 L Glucose 93 Calcium 8.8 06/14/18 03:48 Blood Blood Culture - Final NO GROWTH IN 5 DAYS 06/13/18 23:35 Blood Blood Culture - Final NO GROWTH IN 5 DAYS 06/13/18 06/14/18 06/14/18 20:35 15:52 15:52 Creatine Kinase 109 CK-MB (CK-2) 2.21 Troponin I 0.020 < 0.012 NT-Pro-B Natriuret Pep 1190 H Impressions: Chest X-Ray 06/18/18 00:00 IMPRESSION: Rehydration versus progressing right lower lobe pneumonia. Chest CT 06/19/18 00:00 IMPRESSION: Dense consolidation in the right lower lobe with extensive interstitial airspace disease. Findings are consistent with pneumonia. Centrilobular emphysema. Small pleural effusions right greater than left. Assessment & Plan - Diagnosis (1) Pneumonia of right lower lobe due to infectious organism Is this a current diagnosis for this admission?: Yes (2) Acute kidney injury superimposed on chronic kidney disease Is this a current diagnosis for this admission?: Yes (3) COPD (chronic obstructive pulmonary disease) Qualifiers: COPD type: unspecified COPD Qualified Code(s): J44.9 - Chronic obstructive pulmonary disease, unspecified Is this a current diagnosis for this admission?: Yes (4) HTN (hypertension) Qualifiers: Hypertension type: essential hypertension Qualified Code(s): I10 - Essential (primary) hypertension Is this a current diagnosis for this admission?: Yes (5) BPH loc w urin obs/LUTS Is this a current diagnosis for this admission?: Yes (6) Diastolic CHF Qualifiers: Heart failure chronicity: chronic Qualified Code(s): I50.32 - Chronic diastolic (congestive) heart failure Is this a current diagnosis for this admission?: Yes - Time Time Spent with patient: 25-34 minutes Medications reviewed and adjusted accordingly: Yes Anticipated discharge: Home Within: Other - Inpatient Certification Based on my medical assessment, after consideration of the patient's comorbidities, presenting symptoms, or acuity I expect that the services needed warrant INPATIENT care.: Yes I certify that my determination is in accordance with my understanding of Medicare's requirements for reasonable and necessary INPATIENT services [42 CFR 412.3e].: Yes Medical Necessity: Significant Comorbidiites Make Outpatient Treatment Too Risky, Need Close Monitoring Due to Risk of Patient Decompensation, Need For IV Fluids, Need For Continuous Telemetry Monitoring, Need for Nebulizer Therapy and Monitoring of Response, Need for IV Antibiotics, Risk of Complication if Not Cared For in Hospital, Risk of Diagnosis Which Will Require Inpatient Eval/ Care/Monitoring Post Hospital Care: D/C Division Sales Manager Documentation - Plan Summary Plan Summary: Continue IV Rocephin and Azithromycin coverage. Encouraged use of Flutter device. Start on bedside incentive spiroimetry.
[2018-06-19] MEDS: DILTIAZEM HCL 30 MG TABLET PO SCH ×2 (18:37→23:48)
[2018-06-19] MEDS: AZITHROMYCIN 250 MG TABLET PO SCH (21:22)
[2018-06-20] MEDS: DILTIAZEM HCL 30 MG TABLET PO SCH ×4 (05:42→23:20)
[2018-06-20] MEDS: FINASTERIDE 5 MG TABLET PO SCH (10:14)
[2018-06-20] MEDS: ASPIRIN 81 MG TABLET, ENT COATED PO SCH (10:15)
[2018-06-20] MEDS: FLUTICASONE NASAL SPRAY 50 MCG/SPRY 120 SPRAY/16 GM NASL SCH (10:15)
[2018-06-20] MEDS: CETIRIZINE 10 MG TABLET PO SCH (10:15)
[2018-06-20] MEDS: FLUTICASONE/VILANTEROL 200-25 MCG/DOSE IH SCH (10:15)
[2018-06-20] MEDS: NORMAL SALINE 1000 ML 1,000 ML IV PRN (12:08)
[2018-06-20] MEDS: TAMSULOSIN HCL 0.4 MG CAP.SR.24H PO SCH (17:12)
--- NOTE | 2018-06-20 17:24 | PDOC PROGRESS REPORT ---
Subjective Progress Note for:: 06/20/18 Subjective:: Patient was seen by the bedside, was admitted for the management of right lower lobe pneumonia, he has no new complaints today Reason For Visit: RIGHT LOWER LOBE PNEUMONIA,COPD,BPH,HYPERTENSION, Physical Exam Vital Signs: Temp Pulse Resp BP Pulse Ox 98.2 F 97 20 133/64 H 98 06/20/18 15:29 06/20/18 15:29 06/20/18 15:29 06/20/18 15:29 06/20/18 15:29 Intake & Output 06/19/18 06/20/18 06/21/18 06:59 06:59 06:59 Intake Total 2359 2200 1329 Balance 2359 2200 1329 Weight 96.9 kg 96.6 kg General appearance: PRESENT: no acute distress Eye exam: PRESENT: PERRLA Respiratory exam: PRESENT: rhonchi Cardiovascular exam: PRESENT: +S1, +S2 GI/Abdominal exam: PRESENT: soft Neurological exam: PRESENT: alert Results Laboratory Results: 06/19/18 04:07 06/19/18 04:07 06/13/18 06/14/18 06/14/18 20:35 15:52 15:52 Creatine Kinase 109 CK-MB (CK-2) 2.21 Troponin I 0.020 < 0.012 NT-Pro-B Natriuret Pep 1190 H Impressions: Chest X-Ray 06/18/18 00:00 IMPRESSION: Rehydration versus progressing right lower lobe pneumonia. Chest CT 06/19/18 00:00 IMPRESSION: Dense consolidation in the right lower lobe with extensive interstitial airspace disease. Findings are consistent with pneumonia. Centrilobular emphysema. Small pleural effusions right greater than left. Assessment & Plan - Diagnosis (1) Pneumonia of right lower lobe due to infectious organism Is this a current diagnosis for this admission?: Yes Plan: Continue IV antibiotic (2) Acute kidney injury superimposed on chronic kidney disease Is this a current diagnosis for this admission?: Yes (3) BPH loc w urin obs/LUTS Is this a current diagnosis for this admission?: Yes (4) HTN (hypertension) Qualifiers: Hypertension type: essential hypertension Qualified Code(s): I10 - Essential (primary) hypertension Is this a current diagnosis for this admission?: Yes Plan: Continue all treatment (5) Diastolic CHF Qualifiers: Heart failure chronicity: chronic Qualified Code(s): I50.32 - Chronic diastolic (congestive) heart failure Is this a current diagnosis for this admission?: Yes
[2018-06-20] MEDS ORDERED: CEFTRIAXONE 1 GM/D5W RTU 1 GM/50 ML RTUPB IV ONE (17:57)
[2018-06-20] MEDS: CEFTRIAXONE SODIUM 1,000 MG in DEXTROSE 5%-WATER 50 ML IV SCH (18:15)
[2018-06-20] MEDS: AZITHROMYCIN 250 MG TABLET PO SCH (21:32)
[2018-06-21] MEDS: DILTIAZEM HCL 30 MG TABLET PO SCH ×4 (05:01→23:35)
[2018-06-21] MEDS: ASPIRIN 81 MG TABLET, ENT COATED PO SCH (11:30)
[2018-06-21] MEDS: FINASTERIDE 5 MG TABLET PO SCH (11:30)
[2018-06-21] MEDS: CETIRIZINE 10 MG TABLET PO SCH (11:30)
[2018-06-21] MEDS: NORMAL SALINE 1000 ML 1,000 ML IV PRN (11:36)
[2018-06-21] MEDS: FLUTICASONE NASAL SPRAY 50 MCG/SPRY 120 SPRAY/16 GM NASL SCH (11:38)
[2018-06-21] MEDS: FLUTICASONE/VILANTEROL 200-25 MCG/DOSE IH SCH (11:38)
[2018-06-21 14:15] LABS: ALANINE AMINOTRANSFERASE 26 U/L (21-72); ALBUMIN 2.9 g/dL (3.5-5.0); ALKALINE PHOSPHATASE 57 U/L (38-126); ANION GAP 6 (5-19); ASPARTATE AMINO TRANSFERASE 28 U/L (17-59); BILIRUBIN,DIRECT 0.4 mg/dL (0.0-0.4); BILIRUBIN,TOTAL 0.4 mg/dL (0.2-1.3); BLOOD UREA NITROGEN 22 mg/dL (7-20); CALCIUM 9.1 mg/dL (8.4-10.2); CARBON DIOXIDE 24 mmol/L (22-30); CHLORIDE 110 mmol/L (98-107); GLUCOSE 94 mg/dL (75-110); POTASSIUM 4.4 mmol/L (3.6-5.0); SODIUM 140.2 mmol/L (137-145); TOTAL PROTEIN 5.5 g/dL (6.3-8.2)
[2018-06-21 14:23] LABS: ABSOLUTE BASOPHILS # (AUTO) 0.1 10^3/uL (0.0-0.2); ABSOLUTE EOSINOPHILS # (AUTO) 0.3 10^3/uL (0.0-0.6); ABSOLUTE LYMPHOCYTES (AUTO) 0.8 10^3/uL (0.5-4.7); ABSOLUTE MONOCYTES (AUTO) 1.1 10^3/uL (0.1-1.4); ABSOLUTE NEUT (AUTO) 3.8 10^3/uL (1.7-8.2); BASOPHILS % (AUTO) 1.2 % (0-2); HEMATOCRIT 34.3 % (37.9-51.0); HEMOGLOBIN 11.3 g/dL (13.5-17.0); LYMPHOCYTES % (AUTO) 13.7 % (13-45); MEAN CORPUSCULAR HEMOGLOBIN 29.1 pg (27.0-33.4); MEAN CORPUSCULAR HGB CONC 32.9 g/dL (32.0-36.0); MEAN CORPUSCULAR VOLUME 88 fl (80-97); MONOCYTES % (AUTO) 17.8 % (3-13); PLATELET COUNT 324 10^3/uL (150-450); RED BLOOD COUNT 3.88 10^6/uL (4.35-5.55); RED CELL DISTRIBUTION WIDTH 13.5 % (11.5-14.0); SEGMENTED NEUTROPHILS % (AUTO) 62.3 % (42-78); TOTAL CELLS COUNTED % (AUTO) 100 %; WHITE BLOOD COUNT 6.2 10^3/uL (4.0-10.5)
--- NOTE | 2018-06-21 18:39 | PDOC PROGRESS REPORT ---
Subjective Progress Note for:: 06/21/18 Subjective:: Patient seen by the bedside, he continues to improve Reason For Visit: RIGHT LOWER LOBE PNEUMONIA,COPD,BPH,HYPERTENSION, Physical Exam Vital Signs: Temp Pulse Resp BP Pulse Ox 98.6 F 98 24 H 142/67 H 96 06/21/18 15:59 06/21/18 15:59 06/21/18 15:59 06/21/18 15:59 06/21/18 15:59 Intake & Output 06/20/18 06/21/18 06/22/18 06:59 06:59 06:59 Intake Total 2200 1379 1118 Output Total 200 Balance 2200 1179 1118 Weight 96.6 kg 97.4 kg General appearance: PRESENT: no acute distress Eye exam: PRESENT: PERRLA Respiratory exam: PRESENT: clear to auscultation [place] Cardiovascular exam: PRESENT: +S1, +S2 GI/Abdominal exam: PRESENT: soft Neurological exam: PRESENT: alert, CN II-XII grossly intact Results Laboratory Results: 06/21/18 13:41 06/21/18 13:41 06/21/18 06/21/18 13:41 13:41 WBC 6.2 RBC 3.88 L Hgb 11.3 L Hct 34.3 L MCV 88 MCH 29.1 MCHC 32.9 RDW 13.5 Plt Count 324 Seg Neutrophils % 62.3 Lymphocytes % 13.7 Monocytes % 17.8 H Eosinophils % 5.0 Basophils % 1.2 Absolute Neutrophils 3.8 Absolute Lymphocytes 0.8 Absolute Monocytes 1.1 Absolute Eosinophils 0.3 Absolute Basophils 0.1 Sodium 140.2 Potassium 4.4 Chloride 110 H Carbon Dioxide 24 Anion Gap 6 BUN 22 H Creatinine 1.35 H Est GFR ( Amer) > 60 Est GFR (Non-Af Amer) 51 L Glucose 94 Calcium 9.1 Total Bilirubin 0.4 AST 28 ALT 26 Alkaline Phosphatase 57 Total Protein 5.5 L Albumin 2.9 L 06/13/18 06/14/18 06/14/18 20:35 15:52 15:52 Creatine Kinase 109 CK-MB (CK-2) 2.21 Troponin I 0.020 < 0.012 NT-Pro-B Natriuret Pep 1190 H Impressions: Chest X-Ray 06/18/18 00:00 IMPRESSION: Rehydration versus progressing right lower lobe pneumonia. Chest CT 06/19/18 00:00 IMPRESSION: Dense consolidation in the right lower lobe with extensive interstitial airspace disease. Findings are consistent with pneumonia. Cent rilobular emphysema. Small pleural effusions right greater than left. Assessment & Plan - Diagnosis (1) Pneumonia of right lower lobe due to infectious organism Is this a current diagnosis for this admission?: Yes Plan: Continue IV antibiotic (2) Acute kidney injury superimposed on chronic kidney disease Is this a current diagnosis for this admission?: Yes (3) BPH loc w urin obs/LUTS Is this a current diagnosis for this admission?: Yes (4) HTN (hypertension) Qualifiers: Hypertension type: essential hypertension Qualified Code(s): I10 - Essential (primary) hypertension Is this a current diagnosis for this admission?: Yes (5) Diastolic CHF Qualifiers: Heart failure chronicity: chronic Qualified Code(s): I50.32 - Chronic di astolic (congestive) heart failure Is this a current diagnosis for this admission?: Yes
[2018-06-21] MEDS: TAMSULOSIN HCL 0.4 MG CAP.SR.24H PO SCH (20:05)
[2018-06-21] MEDS: CEFTRIAXONE SODIUM 1,000 MG in DEXTROSE 5%-WATER 50 ML IV SCH (20:05)
[2018-06-21] MEDS: AZITHROMYCIN 250 MG TABLET PO SCH (21:36)
[2018-06-22] MEDS: DILTIAZEM HCL 30 MG TABLET PO SCH ×4 (05:07→23:01)
--- NOTE | 2018-06-22 08:23 | PDOC PROGRESS REPORT ---
Subjective Progress Note for:: 06/22/18 Subjective:: No chest pain. Patient reported improvement in his breathing. Patient denied fever or chills. No nausea, vomiting, or abdominal pain. Appetite and po intake fair. No constipation. Reason For Visit: RIGHT LOWER LOBE PNEUMONIA,COPD,BPH,HYPERTENSION, Physical Exam Vital Signs: Temp Pulse Resp BP Pulse Ox 98.3 F 105 H 20 139/69 H 97 06/22/18 03:42 06/22/18 03:42 06/22/18 03:42 06/22/18 03:42 06/22/18 03:42 Intake & Output 06/21/18 06/22/18 06/23/18 06:59 06:59 06:59 Intake Total 1379 1404 Output Total 200 250 Balance 1179 1154 Weight 97.4 kg 96.8 kg Physical Exam: General appearance: PRESENT: no acute distress Head exam: PRESENT: atraumatic, normocephalic Eye exam: PRESENT: conjunctiva pink. ABSENT: pallor, scleral icterus Mouth exam: PRESENT: moist Respiratory exam: PRESENT: decreased breath sounds - at lung bases Cardiovascular exam: PRESENT: RRR. ABSENT: diastolic murmur, rubs, systolic mu rmur GI/Abdominal exam: PRESENT: normal bowel sounds, soft. ABSENT: distended, guarding, mass, organomegaly, rebound, tenderness Extremities exam: ABSENT: pitting pedal edema Neurological exam: PRESENT: alert, awake, oriented to person, oriented to place, oriented to time, oriented to situation, CN II-XII grossly intact. ABSENT: motor sensory deficit Psychiatric exam: PRESENT: appropriate affect, normal mood. ABSENT: homicidal ideation, suicidal ideation Skin exam: PRESENT: dry, warm Results Laboratory Results: 06/21/18 13:41 06/21/18 13:41 06/21/18 06/21/18 13:41 13:41 WBC 6.2 RBC 3.88 L Hgb 11.3 L Hct 34.3 L MCV 88 MCH 29.1 MCHC 32.9 RDW 13.5 Plt Count 324 Seg Neutrophils % 62.3 Lymphocytes % 13.7 Monocytes % 17.8 H Eosinophils % 5.0 Basophils % 1.2 Absolute Neutrophils 3.8 Absolute Lymphocytes 0.8 Absolute Monocytes 1.1 Absolute Eosinophils 0.3 Absolute Basophils 0.1 Sodium 140.2 Potassium 4.4 Chloride 110 H Carbon Dioxide 24 Anion Gap 6 BUN 22 H Creatinine 1.35 H Est GFR ( Amer) > 60 Est GFR (Non-Af Amer) 51 L Glucose 94 Calcium 9.1 Total Bilirubin 0.4 AST 28 ALT 26 Alkaline Phosphatase 57 Total Protein 5.5 L Albumin 2.9 L 06/13/18 06/14/18 06/14/18 20:35 15:52 15:52 Creatine Kinase 109 CK-MB (CK-2) 2.21 Troponin I 0.020 < 0.012 NT-Pro-B Natriuret Pep 1190 H Impressions: Chest X-Ray 06/18/18 00:00 IMPRESSION: Rehydration versus progressing right lower lobe pneumonia. Chest CT 06/19/18 00:00 IMPRESSION: Dense consolidation in the right lower lobe with extensive interstitial airspace disease. Findings are consistent with pneumonia. Centrilobular emphysema. Small pleural effusions right greater than left. Assessment & Plan - Diagnosis (1) Pneumonia of right lower lobe due to infectious organism Is this a current diagnosis for this admission?: Yes (2) Acute kidney injury superimposed on chronic kidney disease Is this a current diagnosis for this admission?: Yes (3) COPD (chronic obstructive pulmonary disease) Qualifiers: COPD type: unspecified COPD Qualified Code(s): J44.9 - Chronic obstructive pulmonary disease, unspecified Is this a current diagnosis for this admission?: Yes (4) HTN (hypertension) Qualifiers: Hypertension type: essential hypertension Qualified Code(s): I10 - Essential (primary) hypertension Is this a current diagnosis for this admission?: Yes (5) BPH loc w urin obs/LUTS Is this a current diagnosis for this admission?: Yes (6) Diastolic CHF Qualifiers: Heart failure chronicity: chronic Qualified Code(s): I50.32 - Chronic diastolic (congestive) heart failure Is this a current diagnosis for this admission?: Yes - Time Time Spent with patient: 25-34 minutes Medications reviewed and adjusted accordingly: Yes Anticipated discharge: Home Within: Other - Inpatient Certification Based on my medical assessment, after consideration of the patient's comorbidities, presenting symptoms, or acuity I expect that the services needed warrant INPATIENT care.: Yes I certify that my determination is in accordance with my understanding of Medicare's requirements for reasonable and necessary INPATIENT services [42 CFR 412.3e].: Yes Medical Necessity: Significant Comorbidiites Make Outpatient Treatment Too Risky, Need Close Monitoring Due to Risk of Patient Decompensation, Need For IV Fluids, Need For Continuous Telemetry Monitoring, Need for Nebulizer Therapy and Monitoring of Response, Need for IV Antibiotics, Risk of Complication if Not Cared For in Hospital, Risk of Diagnosis Which Will Require Inpatient Eval/Care/Monitoring Post Hospital Care: D/C Manager Workers Compensation Documentation - Plan Summary Plan Summary: Continue current medication management. Encouraged use of Flutter device and incentive spirometry.
[2018-06-22] MEDS: CETIRIZINE 10 MG TABLET PO SCH (10:44)
[2018-06-22] MEDS: ASPIRIN 81 MG TABLET, ENT COATED PO SCH (10:44)
[2018-06-22] MEDS: FLUTICASONE NASAL SPRAY 50 MCG/SPRY 120 SPRAY/16 GM NASL SCH (10:44)
[2018-06-22] MEDS: FINASTERIDE 5 MG TABLET PO SCH (10:44)
[2018-06-22] MEDS: FLUTICASONE/VILANTEROL 200-25 MCG/DOSE IH SCH (10:44)
[2018-06-22] MEDS: TAMSULOSIN HCL 0.4 MG CAP.SR.24H PO SCH (19:40)
[2018-06-22] MEDS: CEFTRIAXONE SODIUM 1,000 MG in DEXTROSE 5%-WATER 50 ML IV SCH (19:41)
[2018-06-22] MEDS: AZITHROMYCIN 250 MG TABLET PO SCH (21:01)
[2018-06-23] MEDS: DILTIAZEM HCL 30 MG TABLET PO SCH ×4 (05:13→23:44)
[2018-06-23 05:46] LABS: ABSOLUTE EOSINOPHILS # (AUTO) 0.4 10^3/uL (0.0-0.6); ABSOLUTE LYMPHOCYTES (AUTO) 0.8 10^3/uL (0.5-4.7); ABSOLUTE MONOCYTES (AUTO) 1.3 10^3/uL (0.1-1.4); ABSOLUTE NEUT (AUTO) 4.1 10^3/uL (1.7-8.2); BASOPHILS % (AUTO) 0.7 % (0-2); EOSINOPHILS % (AUTO) 5.4 % (0-6); HEMATOCRIT 31.5 % (37.9-51.0); HEMOGLOBIN 10.5 g/dL (13.5-17.0); LYMPHOCYTES % (AUTO) 12.4 % (13-45); MEAN CORPUSCULAR HEMOGLOBIN 29.2 pg (27.0-33.4); MEAN CORPUSCULAR HGB CONC 33.2 g/dL (32.0-36.0); MEAN CORPUSCULAR VOLUME 88 fl (80-97); MONOCYTES % (AUTO) 19.2 % (3-13); PLATELET COUNT 304 10^3/uL (150-450); RED BLOOD COUNT 3.59 10^6/uL (4.35-5.55); RED CELL DISTRIBUTION WIDTH 13.8 % (11.5-14.0); SEGMENTED NEUTROPHILS % (AUTO) 62.3 % (42-78); TOTAL CELLS COUNTED % (AUTO) 100 %; WHITE BLOOD COUNT 6.6 10^3/uL (4.0-10.5)
[2018-06-23 06:10] LABS: ALANINE AMINOTRANSFERASE 31 U/L (21-72); ALBUMIN 2.6 g/dL (3.5-5.0); ALKALINE PHOSPHATASE 45 U/L (38-126); ANION GAP 7 (5-19); ASPARTATE AMINO TRANSFERASE 31 U/L (17-59); BILIRUBIN,DIRECT 0.3 mg/dL (0.0-0.4); BILIRUBIN,TOTAL 0.3 mg/dL (0.2-1.3); BLOOD UREA NITROGEN 17 mg/dL (7-20); CALCIUM 8.5 mg/dL (8.4-10.2); CARBON DIOXIDE 28 mmol/L (22-30); CHLORIDE 104 mmol/L (98-107); GLUCOSE 83 mg/dL (75-110); POTASSIUM 4.1 mmol/L (3.6-5.0); SODIUM 138.6 mmol/L (137-145)
[2018-06-23] MEDS: CETIRIZINE 10 MG TABLET PO SCH (09:03)
[2018-06-23] MEDS: ASPIRIN 81 MG TABLET, ENT COATED PO SCH (09:03)
[2018-06-23] MEDS: FINASTERIDE 5 MG TABLET PO SCH (09:03)
[2018-06-23] MEDS: FLUTICASONE/VILANTEROL 200-25 MCG/DOSE IH SCH (09:04)
[2018-06-23] MEDS: FLUTICASONE NASAL SPRAY 50 MCG/SPRY 120 SPRAY/16 GM NASL SCH (09:04)
[2018-06-23] MEDS: CEFTRIAXONE SODIUM 1,000 MG in DEXTROSE 5%-WATER 50 ML IV SCH (17:18)
[2018-06-23] MEDS: TAMSULOSIN HCL 0.4 MG CAP.SR.24H PO SCH (17:18)
--- NOTE | 2018-06-23 17:39 | PDOC PROGRESS REPORT ---
Subjective Progress Note for:: 06/23/18 Subjective:: Patient denied any chest pain. Nursing staff reported episodes of desaturation off supplemental oxygen. He denied any difficulty with breathing and compliance with usage flutter and incentive spirometry devices at bedside. Patient denied fever or chills. No nausea, vomiting, or abdominal pain. Appetite and p.o intake fair. No constipation. Reason For Visit: RIGHT LOWER LOBE PNEUMONIA,COPD,BPH,HYPERTENSION, Physical Exam Vital Signs: Temp Pulse Resp BP Pulse Ox 98.4 F 97 18 133/50 H 92 06/23/18 15:34 06/23/18 15:34 06/23/18 15:34 06/23/18 15:34 06/23/18 15:34 Intake & Output 06/22/18 06/23/18 06/24/18 06:59 06:59 06:59 Intake Total 1404 1417 625 Output Total 250 Balance 1154 1417 625 Weight 96.8 kg 95.7 kg Physical Exam: General appearance: PRESENT: no acute distress Head exam: PRESENT: atraumatic, normocephalic Eye exam: PRESENT: conjunctiva pink. ABSENT: pallor, scleral icterus Mouth exam: PRESENT: moist Respiratory exam: PRESENT: Clear, decreased breath sounds - at lung bases Cardiovascular exam: PRESENT: RRR. ABSENT: diastolic murmur, rubs, systolic murmur GI/Abdominal exam: PRESENT: normal bowel sounds, soft. ABSENT: distended, guarding, mass, organomegaly, rebound, tenderness Extremities exam: ABSENT: pitting pedal edema Neurological exam: PRESENT: alert, awake, oriented to person, oriented to place, oriented to time, oriented to situation, CN II-XII grossly intact. ABSENT: motor sensory deficit Psychiatric exam: PRESENT: appropriate affect, normal mood. ABSENT: homicidal ideation, suicidal ideation Skin exam: PRESENT: dry, warm Results Laboratory Results: 06/23/18 04:18 06/23/18 04:18 06/23/18 06/23/18 04:18 04:18 WBC 6.6 RBC 3.59 L Hgb 10.5 L Hct 31.5 L MCV 88 MCH 29.2 MCHC 33.2 RDW 13.8 Plt Count 304 Seg Neutrophils % 62.3 Lymphocytes % 12.4 L Monocytes % 19.2 H Eosinophils % 5.4 Basophils % 0.7 Absolute Neutrophils 4.1 Absolute Lymphocytes 0.8 Absolute Monocytes 1.3 Absolute Eosinophils 0.4 Absolute Basophils 0.0 Sodium 138.6 Potassium 4.1 Chloride 104 Carbon Dioxide 28 Anion Gap 7 BUN 17 Creatinine 1.26 H Est GFR ( Amer) > 60 Est GFR (Non-Af Amer) 55 L Glucose 83 Calcium 8.5 Total Bilirubin 0.3 AST 31 ALT 31 Alkaline Phosphatase 45 Total Protein 5.0 L Albumin 2.6 L 06/13/18 06/14/18 06/14/18 20:35 15:52 15:52 Creatine Kinase 109 CK-MB (CK-2) 2.21 Troponin I 0.020 < 0.012 NT-Pro-B Natriuret Pep 1190 H Impressions: Chest X-Ray 06/18/18 00:00 IMPRESSION: Rehydration versus progressing right lower lobe pneumonia. Chest CT 06/19/18 00:00 IMPRESSION: Dense consolidation in the right lower lobe with extensive interstitial airspace disease. Findings are consistent with pneumonia. Centrilobular emphysema. Small pleural effusions right greater than left. Assessment & Plan - Diagnosis (1) Pneumonia of right lower lobe due to infectious organism Is this a current diagnosis for this admission?: Yes (2) Acute kidney injury superimposed on chronic kidney disease Is this a current diagnosis for this admission?: Yes (3) COPD (chronic obstructive pulmonary disease) Qualifiers: COPD type: unspecified COPD Qualified Code(s): J44.9 - Chronic obstructive pulmonary disease, unspecified Is this a current diagnosis for this admission?: Yes (4) HTN (hypertension) Qualifiers: Hypertension type: essential hypertension Qualified Code(s): I10 - Essential (primary) hypertension Is this a current diagnosis for this admission?: Yes (5) BPH loc w urin obs/LUTS Is this a current diagnosis for this admission?: Yes (6) Diastolic CHF Qualifiers: Heart failure chronicity: chronic Qualified Code(s): I50.32 - Chronic diastolic (congestive) heart failure Is this a current diagnosis for this admission?: Yes - Time Time Spent with patient: 25-34 minutes Medications reviewed and adjusted accordingly: Yes Anticipated discharge: Home Within: Other - Inpatient Certification Based on my medical assessment, after consideration of the patient's comorbidities, presenting symptoms, or acuity I expect that the services needed warrant INPATIENT care.: Yes I certify that my determination is in accordance with my understanding of Medicare's requirements for reasonable and necessary INPATIENT services [42 CFR 412.3e].: Yes Medical Necessity: Significant Comorbidiites Make Outpatient Treatment Too Risky, Need Close Monitoring Due to Risk of Patient Decompensation, Need For IV Fluids, Need For Continuous Telemetry Monitoring, Need for Nebulizer Therapy and Monitoring of Response, Need for IV Antibiotics, Risk of Complication if Not Cared For in Hospital, Risk of Diagnosis Which Will Require Inpatient Eval/Care/Monitoring Post Hospital Care: D/C Director Housekeeping Documentation - Plan Summary Plan Summary: Continue IV antibiotic coverage day #9. Emphasized need for flutter and incentive spirometry usage.
[2018-06-23] MEDS: AZITHROMYCIN 250 MG TABLET PO SCH (21:04)
[2018-06-24] MEDS: DILTIAZEM HCL 30 MG TABLET PO SCH ×3 (05:04→17:57)
[2018-06-24] MEDS: CETIRIZINE 10 MG TABLET PO SCH (09:19)
[2018-06-24] MEDS: ASPIRIN 81 MG TABLET, ENT COATED PO SCH (09:19)
[2018-06-24] MEDS: FINASTERIDE 5 MG TABLET PO SCH (09:19)
[2018-06-24] MEDS: FLUTICASONE NASAL SPRAY 50 MCG/SPRY 120 SPRAY/16 GM NASL SCH (09:20)
[2018-06-24] MEDS: FLUTICASONE/VILANTEROL 200-25 MCG/DOSE IH SCH (09:20)
[2018-06-24] MEDS: CEFTRIAXONE SODIUM 1,000 MG in DEXTROSE 5%-WATER 50 ML IV SCH (17:57)
[2018-06-24] MEDS: TAMSULOSIN HCL 0.4 MG CAP.SR.24H PO SCH (17:57)
--- NOTE | 2018-06-24 18:30 | PDOC PROGRESS REPORT ---
Subjective Progress Note for:: 06/24/18 Subjective:: Patient denied any chest pain. His breathing remain satisfactory on supplemental oxygen and at rest. Patient denied fever or chills. No nausea, vomiting, or abdominal pain. Appetite and p.o intake are satisfactory. Reason For Visit: RIGHT LOWER LOBE PNEUMONIA,COPD,BPH,HYPERTENSION, Physical Exam Vital Signs: Temp Pulse Resp BP Pulse Ox 99.0 F 113 H 20 134/55 H 95 06/24/18 15:30 06/24/18 15:30 06/24/18 15:30 06/24/18 15:30 06/24/18 15:30 Intake & Output 06/23/18 06/24/18 06/25/18 06:59 06:59 06:59 Intake Total 1417 1411 908 Balance 1417 1411 908 Weight 95.7 kg 95.2 kg Physical Exam: General appearance: PRESENT: no acute distress Head exam: PRESENT: atraumatic, normocephalic Eye exam: PRESENT: conjunctiva pink. ABSENT: pallor, scleral icterus Mouth exam: PRESENT: moist Respiratory exam: PRESENT: Clear, decreased breath sounds - at lung bases Cardiovascular exam: PRESENT: RRR. ABSENT: diastolic murmur, rubs, systolic murmur GI/Abdominal exam: PRESENT: normal bowel sounds, soft. ABSENT: distended, guarding, mass, organomegaly, rebound, tenderness Extremities exam: ABSENT: pitting pedal edema Neurological exam: PRESENT: alert, awake, oriented to person, oriented to place, oriented to time, oriented to situation, CN II-XII grossly intact. ABSENT: motor sensory deficit Psychiatric exam: PRESENT: appropriate affect, normal mood. ABSENT: homicidal ideation, suicidal ideation Skin exam: PRESENT: dry, warm Results Laboratory Results: 06/23/18 04:18 06/23/18 04:18 06/13/18 06/14/18 06/14/18 20:35 15:52 15:52 Creatine Kinase 109 CK-MB (CK-2) 2.21 Troponin I 0.020 < 0.012 NT-Pro-B Natriuret Pep 1190 H Impressions: Chest X-Ray 06/18/18 00:00 IMPRESSION: Rehydration versus progressing right lower lobe pneumonia. Chest CT 06/19/18 00:00 IMPRESSION: Dense consolidation in the right lower lobe with extensive interstitial airspace disease. Findings are consistent with pneumonia. Centrilobular emphysema. Small pleural effusions right greater than left. Assessment & Plan - Diagnosis (1) Pneumonia of right lower lobe due to infectious organism Is this a current diagnosis for this admission?: Yes (2) Acute kidney injury superimposed on chronic kidney disease Is this a current diagnosis for this admission?: Yes (3) COPD (chronic obstructive pulmonary disease) Qualifiers: COPD type: unspecified COPD Qualified Code(s): J44.9 - Chronic obstructive pulmonary disease, unspecified Is this a current diagnosis for this admission?: Yes (4) HTN (hypertension) Qualifiers: Hypertension type: essential hypertension Qualified Code(s): I10 - Essential (primary) hypertension Is this a current diagnosis for this admission?: Yes (5) BPH loc w urin obs/LUTS Is this a current diagnosis for this admission?: Yes (6) Diastolic CHF Qualifiers: Heart failure chronicity: chronic Qualified Code(s): I50.32 - Chronic diastolic (congestive) heart failure Is this a current diagnosis for this admission?: Yes - Time Time Spent with patient: 25-34 minutes Medications reviewed and adjusted accordingly: Yes Anticipated discharge: Home with Homehealth Within: Other - Inpatient Certification Based on my medical assessment, after consideration of the patient's com orbidities, presenting symptoms, or acuity I expect that the services needed warrant INPATIENT care.: Yes I certify that my determination is in accordance with my understanding of Medicare's requirements for reasonable and necessary INPATIENT services [42 CFR 412.3e].: Yes Medical Necessity: Significant Comorbidiites Make Outpatient Treatment Too Risky, Need Close Monitoring Due to Risk of Patient Decompensation, Need For IV Fluids, Need For Continuous Telemetry Monitoring, Need for Nebulizer Therapy and Monitoring of Response, Need for IV Antibiotics, Risk of Complication if Not Cared For in Hospital, Risk of Diagnosis Which Will Require Inpatient Eval/Care/Monitoring Post Hospital Care: D/C Lease Operator Documentation - Plan Summary Plan Summary: D/C IV Rocephin and oral Zithromax after today's dose administration. Increase Cardizem to 60 mg po q 6hours. Encouraged use of expectoration devices.
[2018-06-25] MEDS: DILTIAZEM HCL 60 MG TABLET PO SCH ×4 (01:11→17:03)
[2018-06-25] MEDS: FLUTICASONE/VILANTEROL 200-25 MCG/DOSE IH SCH (09:26)
[2018-06-25] MEDS: ASPIRIN 81 MG TABLET, ENT COATED PO SCH (09:26)
[2018-06-25] MEDS: FINASTERIDE 5 MG TABLET PO SCH (09:26)
[2018-06-25] MEDS: FLUTICASONE NASAL SPRAY 50 MCG/SPRY 120 SPRAY/16 GM NASL SCH (09:26)
[2018-06-25] MEDS: CETIRIZINE 10 MG TABLET PO SCH (09:26)
[2018-06-25] MEDS: TAMSULOSIN HCL 0.4 MG CAP.SR.24H PO SCH (17:03)
--- NOTE | 2018-06-25 18:12 | PDOC PROGRESS REPORT ---
Subjective Progress Note for:: 06/25/18 Subjective:: No chest pain or difficulty with breathing. Patient denied fever or chills. No nausea, vomiting, or abdominal pain. Appetite and p.o intake are satisfactory. Reason For Visit: RIGHT LOWER LOBE PNEUMONIA,COPD,BPH,HYPERTENSION, Physical Exam Vital Signs: Temp Pulse Resp BP Pulse Ox 98.5 F 95 16 142/68 H 94 06/25/18 03:28 06/25/18 06:52 06/25/18 03:28 06/25/18 03:28 06/25/18 03:28 Intake & Output 06/24/18 06/25/18 06/26/18 06:59 06:59 06:59 Intake Total 1411 1394 Balance 1411 1394 Weight 95.2 kg 93.1 kg Physical Exam: General appearance: PRESENT: no acute distress Head exam: PRESENT: atraumatic, normocephalic Eye exam: PRESENT: conjunctiva pink. ABSENT: pallor, scleral icterus Mouth exam: PRESENT: moist Respiratory exam: PRESENT: Clear, decreased breath sounds - at lung bases Cardiovascular exam: PRESENT: RRR. ABSENT: diastolic murmur, rubs, systolic murmur GI/Abdominal exam: PRESENT: normal bowel sounds, soft. ABSENT: distended, guarding, mass, organomegaly, rebound, tenderness Extremities exam: ABSENT: pitting pedal edema Neurological exam: PRESENT: alert, awake, oriented to person, oriented to place, oriented to time, oriented to situation, CN II-XII grossly intact. ABSENT: motor sensory deficit Psychiatric exam: PRESENT: appropriate affect, normal mood. ABSENT: homicidal ideation, suicidal ideation Skin exam: PRESENT: dry, warm Results Laboratory Results: 06/23/18 04:18 06/23/18 04:18 06/13/18 06/14/18 06/14/18 20:35 15:52 15:52 Creatine Kinase 109 CK-MB (CK-2) 2.21 Troponin I 0.020 < 0.012 NT-Pro-B Natriuret Pep 1190 H Impressions: Chest X-Ray 06/18/18 00:00 IMPRESSION: Rehydration versus progressing right lower lobe pneumonia. Chest CT 06/19/18 00:00 IMPRESSION: Dense consolidation in the right lower lobe with extensive interstitial airspace disease. Findings are consistent with pneumonia. Centrilobular emphysema. Small pleural effusions right greater than left. Assessment & Plan - Diagnosis (1) Pneumonia of right lower lobe due to infectious organism Is this a current diagnosis for this admission?: Yes (2) Acute kidney injury superimposed on chronic kidney disease Is this a current diagnosis for this admission?: Yes (3) COPD (chronic obstructive pulmonary disease) Qualifiers: COPD type: unspecified COPD Qualified Code(s): J44.9 - Chronic obstructive pulmonary disease, unspecified Is this a current diagnosis for this admission?: Yes (4) HTN (hypertension) Qualifiers: Hypertension type: essential hypertension Qualified Code(s): I10 - Essential (primary) hypertension Is this a current diagnosis for this admission?: Yes (5) BPH loc w urin obs/LUTS Is this a current diagnosis for this admission?: Yes (6) Diastolic CHF Qualifiers: Heart failure chronicity: chronic Qualified Code(s): I50.32 - Chronic diastolic (congestive) heart failure Is this a current diagnosis for this admission?: Yes - Time Time Spent with patient: 25-34 minutes Medications reviewed and adjusted accordingly: Yes Anticipated discharge: Home with Homehealth Within: Other - Inpatient Certification Based on my medical assessment, after consideration of the patient's comorbidities, presenting symptoms, or acuity I expect that the services needed warrant INPATIENT care.: Yes I certify that my determination is in accordance with my understanding of Medicare's requirements for reasonable and necessary INPATIENT services [42 CFR 412.3e].: Yes Medical Necessity: Significant Comorbidiites Make Outpatient Treatment Too Risky, Need Close Monitoring Due to Risk of Patient Decompensation, Risk of Complication if Not Cared For in Hospital, Risk of Diagnosis Which Will Require Inpatient Eval/Care/Monitoring Post Hospital Care: D/C Lockstitcher Documentation - Plan Summary Plan Summary: Encouraged ambulation on the floor and monitor oxygen saturation to determine need for home oxygen supplementation.
[2018-06-26] MEDS: DILTIAZEM HCL 60 MG TABLET PO SCH ×3 (00:24→12:56)
[2018-06-26] MEDS: CETIRIZINE 10 MG TABLET PO SCH (09:32)
[2018-06-26] MEDS: FLUTICASONE NASAL SPRAY 50 MCG/SPRY 120 SPRAY/16 GM NASL SCH (09:32)
[2018-06-26] MEDS: ASPIRIN 81 MG TABLET, ENT COATED PO SCH (09:32)
[2018-06-26] MEDS: FLUTICASONE/VILANTEROL 200-25 MCG/DOSE IH SCH (09:32)
[2018-06-26] MEDS: FINASTERIDE 5 MG TABLET PO SCH (09:32)
--- NOTE | 2018-06-26 15:55 | PDOC DISCHARGE SUMMARY ---
General - Admit/Disc Date/PCP Admission Date/Primary Care Provider: 06/14/18 00:14 MARY GRACEFLY SCHWRATZ Discharge Date: 06/26/18 - Discharge Diagnosis (1) Pneumonia of right lower lobe due to infectious organism Is this a current diagnosis for this admission?: Yes (2) Acute kidney injury superimposed on chronic kidney disease Is this a current diagnosis for this admission?: Yes (3) COPD (chronic obstructive pulmonary disease) Is this a current diagnosis for this admission?: Yes (4) HTN (hypertension) Is this a current diagnosis for this admission?: Yes (5) BPH loc w urin obs/LUTS Is this a current diagnosis for this admission?: Yes (6) Diastolic CHF Is this a current diagnosis for this admission?: Yes - Additional Information Resuscitation Status: Full Code Prescriptions: Diltiazem HCl [Cardizem Cd 120 mg Capsule] 1 cap.sr PO BID #60 cap.sr Home Medications: Albuterol Sulfate [Proair HFA Inhalation Aerosol 8.5 gm MDI] 1 puff IH Q6HP PRN 06/14/18 Aspirin [Ecotrin 81 mg EC Tablet] 81 mg PO DAILY 06/14/18 Budesonide/Formoterol Fumarate [Symbicort HFA 160-4.5 mcg Inhaler 6 gm] 2 puff IH DAILY 06/14/18 Cetirizine HCl [Zyrtec 10 mg Tablet] 10 mg PO DAILY 06/14/18 Finasteride [Proscar 5 mg Tablet] 5 mg PO DAILY 06/14/18 Fluticasone Propionate [Flonase Nasal [place] 50 Mcg/[place] 16 gm] 1 spray NASL DAILY 06/14/18 Tamsulosin HCl [Flomax 0.4 mg Cap.sr] 0.4 mg PO QPM 06/14/18 Tiotropium [place] [Spiriva Respimat] 2 puff IH Q12 06/14/18 Tramadol HCl [Ultram 50 mg Tablet] 50 mg PO Q6HP PRN 06/14/18 Diltiazem HCl [Cardizem Cd 120 mg Capsule] 1 cap.sr PO BID #60 cap.sr 06/26/18 History of Present Illness History of Present Illness: SAROJ GRAHAM is a 78 year old male patient known to my practice who presented to the ED with complain of generalized weakness. At bedside, his reported poor appetite and oral intake including food and water for several days. Patient reported generalized weakness with lack of energy. He admitted to coughing with minimal sputum production. He denied any associated chest pain, palpitation, shortness of breath.No fever or chills. No nausea, vomiting or abdominal pain. No flank pain, dysuria, or hematuria. Patient denied any associated constipation or diarrhea. His initial ED evaluation was remarkable for elevated leukocytes and abnormal chest X ray suggestive of possible airspace disease process. His morbidities include COPD, Chronic diastolic congestive heart failure, hypertension, stage 3 CKD, and BPH. Hospital Course Hospital Course: He was admitted for right lower lobe pneumonia with confirmed sputum culture growth of Klebsiella Pneumoniae. He was treated with culture sensitive antibiotic for 10 days due to chest CAT scan revealed dense consolidation in the right lower lobe. He was managed with IV fluid due to worsening real status upon admission. He remain in need of supplemental oxygen with documented desaturation of oxygen with exertion. He will be discharge home today on supplemental oxygen with hope that he will taper off need as his lung function improves. There is comparative improvement in his renal indices upon discharge with serum cr eatinine at 1.26. He was treated with IV Cardizem infusion due to episodes of SVT. He was eventually transition to oral Cardizem. He will be discharged home on Cardizem CD 120 mg po bid as well as his preadmission medications except hydrochlorothiazide and Valsartan. He will follow up in the office as instructed upon discharge. Physical Exam Vital Signs: Temp Pulse Resp BP Pulse Ox 98.7 F 106 H 18 141/62 H 96 06/26/18 11:29 06/26/18 14:00 06/26/18 11:29 06/26/18 11:29 06/26/18 11:29 Intake & Output 06/25/18 06/26/18 06/27/18 06:59 06:59 06:59 Intake Total 1394 574 790 Balance 1394 574 790 Weight 93.1 kg 94 kg Physical Exam: General appearance: PRESENT: no acute distress Head exam: PRESENT: atraumatic, normocephalic Eye exam: PRESENT: conjunctiva pink. ABSENT: pallor, scleral icterus Mouth exam: PRESENT: moist Respiratory exam: PRESENT: Clear, decreased breath sounds - at lung bases Cardiovascular exam: PRESENT: RRR. ABSENT: diastolic murmur, rubs, systolic murmur GI/Abdominal exam: PRESENT: normal bowel sounds, soft. ABSENT: distended, guarding, mass, organomegaly, rebound, tenderness Extremities exam: ABSENT: pitting pedal edema Neurological exam: PRESENT: alert, awake, oriented to person, oriented to place, oriented to time, oriented to situation, CN II-XII grossly intact. ABSENT: motor sensory deficit Psychiatric exam: PRESENT: appropriate affect, normal mood. ABSENT: homicidal ideation, suicidal ideation Skin exam: PRESENT: dry, warm Results Laboratory Results: 06/23/18 04:18 06/23/18 04:18 06/13/18 06/14/18 06/14/18 20:35 15:52 15:52 Creatine Kinase 109 CK-MB (CK-2) 2.21 Troponin I 0.020 < 0.012 NT-Pro-B Natriuret Pep 1190 H Impressions: Chest X-Ray 06/18/18 00:00 IMPRESSION: Rehydration versus progressing right lower lobe pneumonia. Chest CT 06/19/18 00:00 IMPRESSION: Dense consolidation in the right lower lobe with extensive interstitial airspace disease. Findings are consistent with pneumonia. Centrilobular emphysema. Small pleural effusions right greater than left. Qualifiers - * PATIENT BEING DISCHARGED WITH ANY OF THE FOLLOWING DIAGNOSIS: No Plan Discharge Plan: D/C home today. Follow up in the office as instructed upon discharge.
[2018-06-26 16:05] VITALS: BP 146/67
[2018-06-26] MEDS ORDERED: DILTIAZEM HCL 120 MG CAP.SR.24H PO ONE (16:30)
== END 2018-06-26 16:30 | disposition home or self-care (01) | DRG 178 ==
LOC: ER 20:13 → EH 06-14 00:14 → 3N 06-14 03:19
PROVIDERS: ADMIT Internal Medicine Geriatric Medicine; ATTEND Internal Medicine Geriatric Medicine
DX: J15.0 Pneumonia due to Klebsiella pneumoniae (principal); N17.9 Acute kidney failure, unspecified; I50.32 Chronic diastolic (congestive) heart failure; I13.0 Hypertensive heart and chronic kidney disease with heart failure and stage 1 through stage 4 chronic kidney disease, or unspecified chronic kidney disease; N13.8 Other obstructive and reflux uropathy; J44.9 Chronic obstructive pulmonary disease, unspecified; N18.3 Chronic kidney disease, stage 3 (moderate); G89.29 Other chronic pain; M54.89 Other dorsalgia; N40.1 Benign prostatic hyperplasia with lower urinary tract symptoms
CPT/HCPCS: 36415; 71046; 71260; 80048; 80053; 81001; 82040; 82330; 82550; 82553; 83735; 83880; 84484; 85025; 87040; 87070; 87077; 87186; 87205; 93005; 93010; 94640; 94667; 94799; 96365; 96367; 99285; J0456; J0610; J0696; J3490; J7030; J7040; J7060; J7620

== ENCOUNTER 2018-11-28 12:14 | Emergency (ER) | payer OTHER, MEDICARE ==
[2018-11-28 12:22] VITALS: BP 124/42
--- NOTE | 2018-11-28 13:19 | ER Document Report ---
HPI - HPI Time Seen by Provider: 11/28/18 13:10 Pain Level: 3 Notes: Patient is a 78-year-old male with a history of hypertension and COPD who presents complaining of nasal congestion/discharge, irritated throat, and a semi-productive cough that is green in color that is been present for the last 1 to 2 days. Patient states that his cough is mild and his nasal congestion is what bothers him the most at this time. Denies drug allergies. He is able to eat and drink without difficult he. He is urinating normally. Patient is able to ambulate without any dyspnea on exertion or shortness of breath. Patient states that he otherwise feels well. Denies any headache, fever, neck pain, chest pain, palpitations, syncope, shortness of breath, wheeze, dyspnea, abdominal pain, nausea/vomiting/diarrhea, urinary retention, dysuria, hematuria, or rash. 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 A&Ox4. Answers questions appropriately. Moves comfortably w/o notable distress HEAD: Atraumatic, normocephalic. EYES: Pupils equal round and reactive to light, extraocular movements intact, sclera anicteric, conjunctiva are normal. ENT: EAC clear b/l. TM's intact b/l without erythema, fluid, or perforation. Nares patent and with clear discharge. oropharynx no erythema without exudates. No tonsilar hypertrophy without erythema or exudate. No palatine shift. Uvula midline. No tongue protrusion. No drooling, hoarseness, or airway compromise. Moist mucous membranes. No sinus tenderness. NECK: Normal range of motion, supple without lymphadenopathy. No rigidity/meningismus. LUNGS: Breath sounds clear to auscultation bilaterally and equal. No wheezes rales or rhonchi. No retractions HEART: Regular rate and rhythm without murmurs, rubs, gallops. NEUROLOGICAL: Normal speech, normal gait. PSYCH: Normal mood, normal affect. SKIN: Warm, Dry, normal turgor, no rashes or lesions noted. - INFECTION CONTROL TRAVEL OUTSIDE OF THE [place] IN LAST 30 DAYS: No Course - Re-evaluation Re-evalutation: 11/28/18 13:17 Patient is an afebrile, well-hydrated, 78-year-old male who presents with an acute URI and possible COPD exacerbation that is considered mild at this time. Vitals are acceptable without significant tachycardia, tachypnea, or hypoxia. PE is otherwise unremarkable. Patient's lungs are clear to auscultation bilaterally. Patient is nontoxic-appearing and is able to tolerate p.o. without difficulty. No labs or imaging warranted. Low suspicion for any pneumonia, meningitis, sepsis, peritonsillar/pharyngeal abscess, respiratory compromise, or other emergent systemic condition at this time. Patient is aware this condition can change from initial presentation and he needs to monitor symptoms closely. Rx for zithromax due to productive cough (yellow/green) in COPD. Conservative measures otherwise for symptoms. Recheck with your PCM in 2-3 days. Return to the ED with any worsening/concerning symptoms otherwise as reviewed in discharge. Patient is in agreement. - Vital Signs Vital signs: Temp Pulse Resp BP Pulse Ox 97.8 F 103 H 18 124/42 L 94 11/28/18 12:21 11/28/18 12:21 11/28/18 12:21 11/28/18 12:21 11/28/18 12:21 Discharge - Discharge Clinical Impression: Cough, Nasal congestion with rhinorrhea Condition: Stable Disposition: HOME, SELF-CARE Additional Instructions: Maintain adequate fluid intake tylenol/ibuprofen as needed alternating every 3 hours for fever/body ache over the counter cold medication as needed for symptoms Humidified air may help Wash your hands regularly Wear a mask when coughing F/u: with your PCM in 2-3 days for a recheck Return to the ED with any fever, altered mental status/behavior, chest pain, palpitations, syncope, headache, neck pain/stiffness, shortness of breath, chest pains, wheezing, drooling, trouble swallowing/breathing, abdominal pain, n/v/d, rash, or worsening/concerning symptoms otherwise. Prescriptions: Azithromycin [Zithromax 250 mg Tablet] 250 mg PO ASDIR PRN #6 tablet PRN Reason: Referrals: MARY GRACE SCHWARTZ MD [Primary Care Provider] - 11/30/18
== END 2018-11-28 13:28 | disposition home or self-care (01) ==
LOC: ER 12:14
DX: J06.9 Acute upper respiratory infection, unspecified (principal); R05 Cough; R09.81 Nasal congestion; J34.89 Other specified disorders of nose and nasal sinuses; I10 Essential (primary) hypertension; J44.9 Chronic obstructive pulmonary disease, unspecified; Z87.891 Personal history of nicotine dependence; Z87.01 Personal history of pneumonia (recurrent)
CPT/HCPCS: 99282

== ENCOUNTER 2019-01-15 14:13 | Inpatient (IN) | payer MEDICARE, OTHER ==
[2019-01-15 14:27] LABS: ABSOLUTE BASOPHILS # (AUTO) 0.1 10^3/uL (0.0-0.2); ABSOLUTE LYMPHOCYTES (AUTO) 1.3 10^3/uL (0.5-4.7); ABSOLUTE MONOCYTES (AUTO) 1.9 10^3/uL (0.1-1.4); ABSOLUTE NEUT (AUTO) 12.7 10^3/uL (1.7-8.2); BASOPHILS % (AUTO) 0.4 % (0-2); EOSINOPHILS % (AUTO) 0.1 % (0-6); HEMATOCRIT 38.6 % (37.9-51.0); HEMOGLOBIN 13.1 g/dL (13.5-17.0); LYMPHOCYTES % (AUTO) 8.1 % (13-45); MEAN CORPUSCULAR HEMOGLOBIN 29.8 pg (27.0-33.4); MEAN CORPUSCULAR HGB CONC 33.9 g/dL (32.0-36.0); MEAN CORPUSCULAR VOLUME 88 fl (80-97); MONOCYTES % (AUTO) 11.6 % (3-13); PLATELET COUNT 197 10^3/uL (150-450); RED BLOOD COUNT 4.38 10^6/uL (4.35-5.55); RED CELL DISTRIBUTION WIDTH 14.2 % (11.5-14.0); SEGMENTED NEUTROPHILS % (AUTO) 79.8 % (42-78); TOTAL CELLS COUNTED % (AUTO) 100 %
[2019-01-15 14:46] LABS: ALBUMIN 3.9 g/dL (3.5-5.0); ALKALINE PHOSPHATASE 65 U/L (38-126); ANION GAP 8 (5-19); ASPARTATE AMINO TRANSFERASE 27 U/L (17-59); BILIRUBIN,DIRECT 0.1 mg/dL (0.0-0.4); BILIRUBIN,TOTAL 0.9 mg/dL (0.2-1.3); BLOOD UREA NITROGEN 29 mg/dL (7-20); CALCIUM 9.3 mg/dL (8.4-10.2); CARBON DIOXIDE 26 mmol/L (22-30); CHLORIDE 105 mmol/L (98-107); GLUCOSE 108 mg/dL (75-110); POTASSIUM 4.3 mmol/L (3.6-5.0); TOTAL PROTEIN 6.8 g/dL (6.3-8.2)
--- NOTE | 2019-01-15 14:53 | RADIOLOGY REPORT (SQ) ---
EXAM DESCRIPTION: CHEST SINGLE VIEW COMPLETED DATE/TIME: 01/15/2019 2:41 pm REASON FOR STUDY: SOB COMPARISON: 06/18/2018 TECHNIQUE: Single frontal radiographic view of the chest acquired. NUMBER OF VIEWS: One view. LIMITATIONS: None. FINDINGS: LUNGS AND PLEURA: No pneumothorax. Similar chronic interstitial changes -scarring in the lung bases, right greater than left. No consolidation or pleural effusion. MEDIASTINUM AND HILAR STRUCTURES: Stable. HEART AND VASCULAR STRUCTURES: Stable. BONES: No acute findings. HARDWARE: None in the chest. OTHER: No other significant finding. IMPRESSION: Similar chronic interstitial changes -scarring in the lung bases, right greater than lef t. No consolidation or pleural effusion. TECHNICAL DOCUMENTATION: JOB ID: [id number] [place]-72 2010 [employer]- All Rights Reserved Reading location - IP/workstation name: [email or web address]
[2019-01-15] MEDS ORDERED: IPRATROPIUM BROMIDE 0.02% NEB 0.5 MG/2.5 ML AMPUL NEB PRN (16:09)
--- NOTE | 2019-01-15 16:12 | ER Document Report ---
ED General - General Chief Complaint: Shortness Of Breath Stated Complaint: SHORTNESS OF BREATH Time Seen by Provider: 01/15/19 14:58 Primary Care Provider: MARY GRACE SCHWARTZ MD [Primary Care Provider] - Follow up as needed Mode of Arrival: Medic Information source: Patient TRAVEL OUTSIDE OF THE [place] IN LAST 30 DAYS: No - Related Data Allergies/Adverse Reactions: No Known Allergies Allergy (Verified 11/28/18 12:18) Home Medications: Aspirin, fenestride, unknown disk inhaler Past Medical History - Social History Smoking Status: Former Smoker Chew tobacco use (# tins/day): No Frequency of alcohol use: None Drug Abuse: None Family History: None Patient has suicidal ideation: No Patient has homicidal ideation: No - Past Medical History Cardiac Medical History: Reports: Hx Hypertension - ON MEDS Denies: Hx Coronary Artery Disease, Hx Heart Attack Pulmonary Medical History: Reports: Hx COPD - ON INHALERS, Hx Pneumonia - 2003 Denies: Hx Asthma, Hx Bronchitis Neurological Medical History: Denies: Hx Cerebrovascular Accident, Hx Seizures Renal/ Medical History: Denies: Hx Peritoneal Dialysis Musculoskeletal Medical History: Reports Hx Arthritis - LOW BACK, RIGHT WRIST Past Surgical History: Reports: Hx Tonsillectomy, Other - prostate biopsy 01/15/16 - Immunizations Hx Diphtheria, Pertussis, Tetanus Vaccination: Yes Hx Pneumococcal Vaccination: 03/17/16 Course - Laboratory Result Diagrams: 01/15/19 13:45 01/15/19 13:45 Laboratory results interpreted by me: 01/15/19 01/15/19 13:45 13:45 WBC 16.0 H Hgb 13.1 L RDW 14.2 H Lymph % (Auto) 8.1 L Absolute Neuts (auto) 12.7 H Absolute Monos (auto) 1.9 H Seg Neutrophils % 79.8 H BUN 29 H Creatinine 1.83 H Est GFR ( Amer) 44 L Est GFR (MDRD) Non-Af 36 L - Diagnostic Test Radiology reviewed: Image reviewed - One-view portable AP chest x-ray today showed no significant changes hyperinflation consistent with chronic COPD there is resolution of consolidation in the right lower lobe no significant increase in interstitial edema otherwise on this 1 view no new consolidations or pneumothoraces or change in cardiomediastinal silhouette, Reports reviewed Discharge - Discharge Referrals: MARY GRACE SCHWARTZ MD [Primary Care Provider] - Follow up as needed
--- NOTE | 2019-01-15 18:10 | EKG REPORT ---
SEVERITY:- ABNORMAL ECG - SINUS TACHYCARDIA MULTIPLE ATRIAL PREMATURE COMPLEXES LVH NONSPECIFIC LATERAL ST-T CHANGES : Confirmed by: Gustavo Francois MD 15-Jan-2019 18:10:37
[2019-01-15] MEDS ORDERED: IPRATROPIUM/ALBUTEROL 0.5-2.5 MG/3 ML AMPUL NEB ONE (19:03)
[2019-01-15] MEDS: MAGNESIUM SULFATE/D5W 1 GM/100 ML RTUPB IV SCH ×2 (20:07→21:06)
[2019-01-15 20:23] LABS: APPEARANCE,URINE SLIGHTLY-CLOUDY; BILIRUBIN,URINE NEGATIVE (NEGATIVE); COLOR,URINE YELLOW; GLUCOSE, URINE NEGATIVE (NEGATIVE); KETONES,URINE 20 mg/dL (NEGATIVE); LEUKOCYTE ESTERASE,URINE NEGATIVE (NEGATIVE); NITRITE,URINE NEGATIVE (NEGATIVE); PROTEIN,URINE 30 mg/dL (NEGATIVE); URINE SPECIFIC GRAVITY 1.025; UROBILINOGEN,URINE NEGATIVE mg/dL (<2.0)
[2019-01-15] MEDS ORDERED: DOXYCYCLINE HYCLATE INJ 100 MG VIAL IV ONE (22:57)
--- NOTE | 2019-01-15 23:00 | RADIOLOGY REPORT (SQ) ---
EXAM DESCRIPTION: CT CHEST WITHOUT IV CONTRAST COMPLETED DATE/TME: 01/15/2019 21:17 CLINICAL HISTORY: 78 years, Male, evaluate for pneumonia PROCEDURE: CLINICAL HISTORY: 78 years Male evaluate for pneumonia COMPARISON: None. TECHNIQUE: Contiguous axial images obtained through the chest without IV contrast. Reformatted images obtained. This exam was performed according to our department optimization program which includes automated exposure control, adjustment of the mA and/or kv according to patient size and/or use of iterative reconstruction technique. FINDINGS: There is mild enlargement of mediastinal lymph nodes. Exophytic cyst of the right kidney may be a cyst but detail is limited without contrast. Mild enlargement of the mid body of the pancreas is nonspecific. This could be normal for this patient. No definite focal mass is seen but clinical correlation is advised and follow-up may be helpful. There are extensive emphysematous changes and interstitial disease. Groundglass scattered opacities are present. No pneumothorax or significant pleural effusion. There are peripheral pulmonary bulla. No large consolidation is seen. Coronary artery calcifications. Atherosclerotic calcifications in the thoracic aorta. IMPRESSION: No significant consolidation. Extensive interstitial disease. Mildly enlarged mediastinal lymph nodes. Additional findings above.
--- NOTE | 2019-01-15 23:02 | ER Document Report ---
Doctor's Note Notes: 01/15/19 22:58 Took over care of this patient at 1700. Patient is a 78-year-old male who comes into the emergency department today with difficulty breathing. Patient has a history of COPD. He has had pneumonia 3 times in the last year per his . Patient also with history of travel to the [facility]. No chest pain today. Patient had been given a nebulizer treatment and Solu-Medrol prior to arrival. Given magnesium in the emergency department. Patient was ambulated and dropped his oxygen saturation to 87. He became very dyspneic. Patient currently with oxygen requirement which she does not usually have at home. Also some concern for possible heart failure which patient does not carry a diagnosis of. No echocardiogram on record. Regardless, given hypoxia and persistent dyspnea, patient will require admission. He is agreeable to this. Spoke with his primary care doctor, Dr. Cordoba who will admit the patient to the [facility]. Of note, VQ scan ordered to evaluate for PE. Patient's creatinine will not permit for CTA today. Discharge - Discharge Clinical Impression: ZAK (acute kidney injury), Hypoxia COPD (chronic obstructive pulmonary disease) Qualifiers: COPD type: unspecified COPD Qualified Code(s): J44.9 - Chronic obstructive pulmonary disease, unspecified Condition: Stable Disposition: ADMITTED INPATIENT Admitting Provider: Beryl Unit Admitted: [facility] Critical Care Note - Critical Care Note Total time excluding time spent on procedures (mins): 35 - Evaluation and management of respiratory distress, hypoxia, multiple re-evaluations, coordination of admission, counseling of patient and family
--- NOTE | 2019-01-16 02:00 | RADIOLOGY REPORT (SQ) ---
EXAM: Nuclear medicine lung ventilation/perfusion scan CLINICAL DATA: 78-year-old male with dyspnea and hypoxia TECHNICAL DATA: 30 mCi of Tc-DTPA is administered by inhalation. Anterior ventilation images were obtained. Then, 5 mCi of 99m Tc MAA is administered intravenously. Anterior and posterior images of the lungs are performed. FINDINGS: Comparison is from a chest x-ray performed on 01/15/2019. The ventilation images reveal heterogeneous distribution of radiotracer throughout the lungs. As per the technologist, the patient had a difficult time maintaining the seal throughout the ventilation portion of the examination. The ventilation images are considered nondiagnostic. The perfusion images reveal homogeneous distribution throughout the lungs without evidence of segmental or subsegmental perfusion defects. No significant peripheral hypoperfused areas are identified. IMPRESSION: 1. Nondiagnostic ventilation scan as described above. 2. No significant segmental or subsegmental perfusion defects are identified. This scan is felt to be low probability for pulmonary embolism.
[2019-01-16] MEDS ORDERED: ALBUTEROL SULFATE HFA (90 MCG/PUFF) 200 PUFF/8.5 GM MDI IH PRN (12:55)
[2019-01-16] MEDS ORDERED: (PENDING PHARMACY ID) (Azelastine Hcl [Azelastine Hcl] 2 SPRAY) NASL PRN (12:55)
[2019-01-16] MEDS ORDERED: TRAMADOL HCL 50 MG TABLET PO PRN (12:55)
--- NOTE | 2019-01-16 16:03 | PDOC H&P ---
History of Present Illness Admission Date/PCP: 01/15/19 23:27 MARY GRACEFLY SCHWARTZ Patient complains of: Difficulty with breathing History of Present Illness: SAROJ GRAHAM is a 78 year old male known to my practice who presented to the ED with complain about progressive worsening difficulty with breathing. He denied any chest pain or palpitation. No associated worsening cough or sputum production. No fever or chills. Patient has history of COPD and chronic systolic CHF. He admitted to medication compliance since last office visit as well as fluid and salt restrictions. His initial evaluation in the ED was significant for effort associated hypoxemia and elevated NT Pro-BNP. He was advised hospitalization for further evaluation and management. His morbidities are as listed below. Past Medical History Cardiac Medical History: Reports: Congestive Heart Failure - chronic diastolic CHF, Hypertension - ON MEDS Denies: Coronary Artery Disease, Myocardial Infarction Pulmonary Medical History: Reports: Chronic Obstructive Pulmonary Disease (COPD) - ON INHALERS, Pneumonia - 2003 Denies: Asthma, Bronchitis Neurological Medical History: Denies: Seizures Musculoskeltal Medical History: Reports: Arthritis - LOW BACK, RIGHT WRIST Hematology: Denies: Anemia Past Surgical History Past Surgical History: Reports: Tonsillectomy, Other - prostate biopsy 01/15/16 Social History Smoking Status: Never Smoker Electronic Cigarette use?: No Frequency of Alcohol Use: None Hx Recreational Drug Use: Yes Hx Prescription Drug Abuse: No - Advance Directive Resuscitation Status: Full Code Family History Family History: None Parental Family History Reviewed: Yes Children Family History Reviewed: Yes Sibling(s) Family History Reviewed.: Yes Medication/Allergy Home Medications: Albuterol Sulfate [Proair HFA Inhalation Aerosol 8.5 gm MDI] 2 puff IH Q4HP PRN 01/16/19 Aspirin [Adult Low Dose Aspirin EC] 81 mg PO QPM 01/16/19 Azelastine HCl 2 spray NASL BIDP PRN 01/16/19 Cetirizine HCl [Zyrtec 10 mg Tablet] 10 mg PO QHS 01/16/19 Diltiazem HCl [Cardizem Cd 180 mg Capsule] 1 cap.sr PO DAILY 01/16/19 Finasteride [Proscar 5 mg Tablet] 5 mg PO QAM 01/16/19 Fluticasone/Umeclidin/Vilanter [Trelegy 100-62.5-25 Mcg Ellipta 14 Dose/Dpi] 1 puff IH QAM 01/16/19 Furosemide [Lasix 20 mg Tablet] 20 mg PO QAM 01/16/19 Loratadine [Claritin 10 mg Tablet] 10 mg PO QAM 01/16/19 Tamsulosin HCl [Flomax 0.4 mg Cap.sr] 0.4 mg PO QPM 01/16/19 Tramadol HCl [Ultram 50 mg Tablet] 50 mg PO Q6HP PRN 01/16/19 Allergies/Adverse Reactions: No Known Allergies Allergy (Verified 11/28/18 12:18) Review of Systems Constitutional: ABSENT: chills, fever(s), headache(s), weight gain, weight loss Eyes: ABSENT: visual disturbances Ears: ABSENT: hearing changes Nose, Mouth, and Throat: ABSENT: as per HPI, headache(s), mouth pain, sore throat, vertigo, other Cardiovascular: PRESENT: dyspnea on exertion. ABSENT: as per HPI, chest pain, edema, orthropnea, palpitations, other Respiratory: PRESENT: dyspnea. ABSENT: as per HPI, cough, hemoptysis, sputum, other Gastrointestinal: ABSENT: abdominal pain, constipation, diarrhea, hematemesis, hematochezia, nausea, vomiting Genitourinary: ABSENT: dysuria, hematuria Musculoskeletal: ABSENT: joint swelling Integumentary: ABSENT: rash, wounds Neurological: ABSENT: abnormal gait, abnormal speech, confusion, dizziness, focal weakness, syncope Psychiatric: ABSENT: anxiety, depression, homidical ideation, suicidal ideation Endocrine: ABSENT: cold intolerance, heat intolerance, polydipsia, polyuria Hematologic/Lymphatic: ABSENT: easy bleeding, easy bruising, lymphadenopathy Physical Exam Vital Signs: Temp Pulse Resp BP Pulse Ox 98.6 F 111 H 20 152/68 H 98 01/16/19 13:09 01/16/19 14:00 01/16/19 13:09 01/16/19 13:09 01/16/19 13:09 Intake & Output 01/15/19 01/16/19 01/17/19 06:59 06:59 05:59 Intake Total 198 Balance 198 Weight 93.4 kg General appearance: PRESENT: mild distress - remain on supplemetal oxyhen via nasal cannula at 2L/min Head exam: PRESENT: atraumatic, normocephalic Eye exam: PRESENT: conjunctiva pink, EOMI, PERRLA. ABSENT: scleral icterus Ear exam: PRESENT: normal external ear exam Mouth exam: PRESENT: moist Teeth exam: PRESENT: poor dentation Neck exam: PRESENT: full ROM. ABSENT: carotid bruit, JVD, lymphadenopathy, thyromegaly Respiratory exam: PRESENT: clear to auscultation aurora, decreased breath sounds - at lung bases Cardiovascular exam: PRESENT: RRR. ABSENT: diastolic murmur, rubs, systolic murmur Vascular exam: ABSENT: pallor GI/Abdominal exam: PRESENT: normal bowel sounds, soft. ABSENT: distended, guarding, mass, organolmegaly, rebound, tenderness Rectal exam: PRESENT: deferred Extremities exam: PRESENT: pedal edema - minimal joslyn ankle joint region Musculoskeletal exam: PRESENT: deformity - related to multiple joints involvement with arthritis Neurological exam: PRESENT: alert, awake, oriented to person, oriented to place, oriented to time, oriented to situation, CN II-XII grossly intact. ABSENT: motor sensory deficit Psychiatric exam: PRESENT: appropriate affect, normal mood. ABSENT: homicidal ideation, suicidal ideation Skin exam: PRESENT: dry, warm Results Laboratory Results: 01/15/19 13:45 01/15/19 13:45 01/15/19 20:04 Urine Color YELLOW Urine Appearance SLIGHTLY-CLOUDY Urine pH 5.0 Ur Specific [place] 1.025 Urine Protein 30 H Urine Glucose (UA) NEGATIVE Urine Ketones 20 H Urine Blood SMALL H Urine Nitrite NEGATIVE Ur Leukocyte Esterase NEGATIVE Urine WBC (Auto) 4 Urine RBC (Auto) 2 01/15/19 01/15/19 19:55 19:55 Troponin I 0.018 NT-Pro-B Natriuret Pep 2060 H Impressions: Chest X-Ray 01/15/19 14:18 IMPRESSION: Similar chronic interstitial changes -scarring in the lung bases, right greater than left. No consolidation or pleural effusion. Chest CT 01/15/19 21:17 IMPRESSION: No significant consolidation. Extensive interstitial disease. Mildly enlarged mediastinal lymph nodes. Additional findings above. Lung Scan-VQ NM 01/15/19 22:41 IMPRESSION: 1. Nondiagnostic ventilation scan as described above. 2. No significant segmental or subsegmental perfusion defects are identified. This scan is felt to be low probability for pulmonary embolism. Assessment & Plan - Diagnosis (1) Chronic obstructive pulmonary disease with hypoxia Is this a current diagnosis for this admission?: Yes Plan: See admitting attending physician orders about details of care plan. (2) Diastolic CHF Qualifiers: Heart failure chronicity: chronic Qualified Code(s): I50.32 - Chronic diastolic (congestive) heart failure Is this a current diagnosis for this admission?: Yes Plan: See admitting attending physician orders about details of care plan. (3) HTN (hypertension) Qualifiers: Hypertension type: essential hypertension Qualified Code(s): I10 - Essential (primary) hypertension Is this a current diagnosis for this admission?: Yes Plan: See admitting attending physician orders about details of care plan. (4) CKD (chronic kidney disease) stage 3, GFR 30-59 ml/min Is this a current diagnosis for this admission?: Yes Plan: See admitting attending physician orders about details of care plan. (5) BPH loc w urin obs/LUTS Is this a current diagnosis for this admission?: Yes Plan: See admitting attending physician orders about details of care plan. - Time Time Spent: 50 to 70 Minutes Medications reviewed and adjusted accordingly: Yes Anticipated discharge: Home with Homehealth Within: Other - Inpatient Certification Based on my medical assessment, after consideration of the patient's comorbidities, presenting symptoms, or acuity I expect that the services needed warrant INPATIENT care.: Yes I certify that my determination is in accordance with my understanding of Medicare's requirements for reasonable and necessary INPATIENT services [42 CFR 412.3e].: Yes Medical Necessity: Significant Comorbidiites Make Outpatient Treatment Too Risky, Need Close Monitoring Due to Risk of Patient Decompensation, Need For Continuous Telemetry Monitoring, Need for Nebulizer Therapy and Monitoring of Response, Risk of Complication if Not Cared For in Hospital, Risk of Diagnosis Which Will Require Inpatient Eval/Care/Monitoring Post Hospital Care: D/C Major Gifts Officer Documentation - Plan Summary Plan Summary: See admitting attending physician orders about details of care plan.
[2019-01-16] MEDS ORDERED: LEVOFLOXACIN 500 MG/D5W RTU 500 MG/100 ML RTUPB IV ONE (17:00)
[2019-01-16] MEDS: ASPIRIN 81 MG TABLET, ENT COATED PO SCH (17:02)
[2019-01-16] MEDS: DILTIAZEM HCL 180 MG CAPSULE.CR PO SCH (17:02)
[2019-01-16] MEDS: TAMSULOSIN HCL 0.4 MG CAP.SR.24H PO SCH (17:03)
[2019-01-16] MEDS ORDERED: DILTIAZEM HCL 120 MG CAP.SR.24H PO SCH (18:00)
[2019-01-16] MEDS ORDERED: DILTIAZEM HCL/D5W 125 MG/125 ML RTUINJ IV ONE (23:45)
[2019-01-16] MEDS ORDERED: DILTIAZEM HCL/D5W 125 MG/125 ML RTUINJ IV PRN (23:52)
[2019-01-17 01:04] LABS: CREATINE KINASE MB 4.77 ng/mL (<4.55); TROPONIN I 0.014 ng/mL
--- NOTE | 2019-01-17 01:10 | EKG REPORT ---
SEVERITY:- BORDERLINE ECG - SINUS TACHYCARDIA ATRIAL PREMATURE COMPLEX BORDERLINE T ABNORMALITIES, ANT-LAT LEADS : Confirmed by: Gustavo Francois MD 17-Jan-2019 01:09:12
[2019-01-17 04:38] LABS: ABSOLUTE LYMPHOCYTES (AUTO) 0.6 10^3/uL (0.5-4.7); ABSOLUTE MONOCYTES (AUTO) 1.4 10^3/uL (0.1-1.4); ABSOLUTE NEUT (AUTO) 6.1 10^3/uL (1.7-8.2); BASOPHILS % (AUTO) 0.1 % (0-2); EOSINOPHILS % (AUTO) 0.1 % (0-6); HEMATOCRIT 37.1 % (37.9-51.0); HEMOGLOBIN 12.3 g/dL (13.5-17.0); LYMPHOCYTES % (AUTO) 7.7 % (13-45); MEAN CORPUSCULAR HEMOGLOBIN 29.3 pg (27.0-33.4); MEAN CORPUSCULAR VOLUME 89 fl (80-97); MONOCYTES % (AUTO) 17.5 % (3-13); PLATELET COUNT 197 10^3/uL (150-450); RED BLOOD COUNT 4.19 10^6/uL (4.35-5.55); RED CELL DISTRIBUTION WIDTH 14.5 % (11.5-14.0); SEGMENTED NEUTROPHILS % (AUTO) 74.6 % (42-78); TOTAL CELLS COUNTED % (AUTO) 100 %; WHITE BLOOD COUNT 8.2 10^3/uL (4.0-10.5)
[2019-01-17 05:04] LABS: ALBUMIN 3.3 g/dL (3.5-5.0); ALKALINE PHOSPHATASE 48 U/L (38-126); ANION GAP 6 (5-19); ASPARTATE AMINO TRANSFERASE 21 U/L (17-59); BILIRUBIN,DIRECT 0.2 mg/dL (0.0-0.4); BILIRUBIN,TOTAL 0.3 mg/dL (0.2-1.3); BLOOD UREA NITROGEN 43 mg/dL (7-20); CALCIUM 8.9 mg/dL (8.4-10.2); CARBON DIOXIDE 28 mmol/L (22-30); CHLORIDE 108 mmol/L (98-107); GLUCOSE 105 mg/dL (75-110); POTASSIUM 4.9 mmol/L (3.6-5.0); TOTAL PROTEIN 5.7 g/dL (6.3-8.2)
[2019-01-17] MEDS ORDERED: FUROSEMIDE 20 MG TABLET PO SCH (08:00)
[2019-01-17] MEDS: LORATADINE 10 MG TABLET PO SCH (08:18)
[2019-01-17] MEDS: FLUTICASONE/UMECLIDIN/VILANTER 100-62.5-25 MCG/DOSE IH SCH (08:18)
[2019-01-17] MEDS: FINASTERIDE 5 MG TABLET PO SCH (08:18)
[2019-01-17] MEDS: DILTIAZEM HCL 180 MG CAPSULE.CR PO SCH (09:27)
[2019-01-17] MEDS: APIXABAN 5 MG TABLET PO SCH ×2 (09:27→17:04)
--- NOTE | 2019-01-17 16:29 | PDOC PROGRESS REPORT ---
Subjective Progress Note for:: 01/17/19 Subjective:: Patient's assigned nursing staff reported persistent atria fibrillation on his surveillance system monitor that necessitate initiation of IV Cardizem infusion and Eliquis therapy since last evaluation. He denied any associated chest pain or difficulty with breathing. Current surveillance system monitor revealed sinus rhythm. he remain on his preadmission medication management and IV Levofloxacin coverage. He denied any nausea, vomiting, or abdominal pain. No fever or chills. Reason For Visit: EXACERBATED COPD WITH HYPOXEMIA,CHRONIC DIASTOLIC Physical Exam Vital Signs: Temp Pulse Resp BP Pulse Ox 99.5 F 99 14 126/61 H 99 01/17/19 12:18 01/17/19 14:00 01/17/19 12:18 01/17/19 12:18 01/17/19 12:18 Intake & Output 01/16/19 01/17/19 01/18/19 07:59 06:59 06:59 Intake Total Output Total Balance Weight General appearance: PRESENT: no acute distress, well-developed, well-nourished Head exam: PRESENT: atraumatic, normocephalic Eye exam: PRESENT: conjunctiva pink. ABSENT: scleral icterus Ear exam: PRESENT: normal external ear exam Mouth exam: PRESENT: moist Respiratory exam: PRESENT: clear to auscultation aurora Cardiovascular exam: PRESENT: RRR, +S1, +S2. ABSENT: diastolic murmur, rubs, systolic murmur, tachycardia Vascular exam: ABSENT: pallor GI/Abdominal exam: PRESENT: normal bowel sounds, soft. ABSENT: distended, guarding, mass, organolmegaly, rebound, tenderness Extremities exam: ABSENT: pedal edema Musculoskeletal exam: PRESENT: normal inspection Neurological exam: PRESENT: alert, awake, oriented to person, oriented to place, oriented to time, oriented to situation, CN II-XII grossly intact. ABSENT: motor sensory deficit Psychiatric exam: PRESENT: appropriate affect, normal mood. ABSENT: homicidal ideation, suicidal ideation Skin exam: PRESENT: dry, warm Results Laboratory Results: 01/17/19 04:05 01/17/19 04:05 01/17/19 01/17/19 04:05 04:05 WBC 8.2 RBC 4.19 L Hgb 12.3 L Hct 37.1 L MCV 89 MCH 29.3 MCHC 33.0 RDW 14.5 H Plt Count 197 Seg Neutrophils % 74.6 Sodium 142.2 Potassium 4.9 Chloride 108 H Carbon Dioxide 28 Anion Gap 6 BUN 43 H Creatinine 2.00 H Est GFR ( Amer) 39 L Glucose 105 Calcium 8.9 Total Bilirubin 0.3 AST 21 Alkaline Phosphatase 48 Total Protein 5.7 L Albumin 3.3 L 01/15/19 01/15/19 01/17/19 19:55 19:55 00:23 Creatine Kinase 97 CK-MB (CK-2) Troponin I 0.018 NT-Pro-B Natriuret Pep 2060 H 01/17/19 00:23 Creatine Kinase CK-MB (CK-2) 4.77 H Troponin I 0.014 NT-Pro-B Natriuret Pep Impressions: Chest X-Ray 01/15/19 14:18 IMPRESSION: Similar chronic interstitial changes -scarring in the lung bases, right greater than left. No consolidation or pleural effusion. Chest CT 01/15/19 21:17 IMPRESSION: No significant consolidation. Extensive interstitial disease. Mildly enlarged mediastinal lymph nodes. Additional findings above. Lung Scan-VQ NM 01/15/19 22:41 IMPRESSION: 1. Nondiagnostic ventilation scan as described above. 2. No significant segmental or subsegmental perfusion defects are identified. This scan is felt to be low probability for pulmonary embolism. Assessment & Plan - Diagnosis (1) Chronic obstructive pulmonary disease with hypoxia Is this a current diagnosis for this admission?: Yes (2) Diastolic CHF Qualifiers: Heart failure chronicity: chronic Qualified Code(s): I50.32 - Chronic diastolic (congestive) heart failure Is this a current diagnosis for this admission?: Yes (3) HTN (hypertension) Qualifiers: Hypertension type: essential hypertension Qualified Code(s): I10 - Essential (primary) hypertension Is this a current diagnosis for this admission?: Yes (4) CKD (chronic kidney disease) stage 3, GFR 30-59 ml/min Is this a current diagnosis for this admission?: Yes (5) BPH loc w urin obs/LUTS Is this a current diagnosis for this admission?: Yes (6) Atrial fibrillation, transient Is this a current diagnosis for this admission?: Yes Plan: His AF ROSI(2)DS(2)-VASc Score for stroke risk was 4% / year. (LV dysfunction, HTN, age >75, and male gender). He was started on Eliquis at 5 mg p.o bid. d/C IV Cardizem drip. Increase Cardizem CD dosing to 120mg p.o q 12 hours. His exertional shortness of breath may be due to transient Atrial fibrillation. Ob tain cardiac enzymes x 3 q 6 hours. Obtain complete echocardiogram and cardiology consultation.Obtain Mag level. - Time Time Spent with patient: 35 or more minutes Level of Care: IMCU Medications reviewed and adjusted accordingly: Yes Anticipated discharge: Home with Homehealth Within: Other - Inpatient Certification Based on my medical assessment, after consideration of the patient's comorbidities, presenting symptoms, or acuity I expect that the services needed warrant INPATIENT care.: Yes I certify that my determination is in accordance with my understanding of Medicare's requirements for reasonable and necessary INPATIENT services [42 CFR 412.3e].: Yes Medical Necessity: Significant Comorbidiites Make Outpatient Treatment Too Risky, Need Close Monitoring Due to Risk of Patient Decompensation, Need For Continuous Telemetry Monitoring, Need for Nebulizer Therapy and Monitoring of Response, Need for IV Antibiotics, Risk of Complication if Not Cared For in Hospital, Risk of Diagnosis Which Will Require Inpatient Eval/Care/Monitoring Post Hospital Care: D/C Tomato Grader Documentation - Plan Summary Plan Summary: See attending physician orders for details about care plan.
[2019-01-17] MEDS ORDERED: LEVOFLOXACIN 500 MG/D5W RTU 500 MG/100 ML RTUPB IV ONE (16:30)
[2019-01-17] MEDS: LEVOFLOXACIN 500 MG/D5W RTU 500 MG/100 ML RTUPB IV SCH (17:04)
[2019-01-17] MEDS: ASPIRIN 81 MG TABLET, ENT COATED PO SCH (17:04)
[2019-01-17] MEDS: TAMSULOSIN HCL 0.4 MG CAP.SR.24H PO SCH (17:04)
[2019-01-17 17:46] LABS: CREATINE KINASE MB 1.17 ng/mL (<4.55); TROPONIN I 0.014 ng/mL
[2019-01-17] MEDS: DILTIAZEM HCL 120 MG CAP.SR.24H PO SCH (21:31)
--- NOTE | 2019-01-17 21:38 | EKG REPORT ---
SEVERITY:- ABNORMAL ECG - SINUS RHYTHM SUPRAVENTRICULAR BIGEMINY BORDERLINE T ABNORMALITIES, ANT-LAT LEADS : Confirmed by: Gustavo Francois MD 17-Jan-2019 21:37:54
[2019-01-17 23:46] LABS: CREATINE KINASE MB 0.85 ng/mL (<4.55); TROPONIN I 0.015 ng/mL
[2019-01-18 05:55] LABS: ANION GAP 8 (5-19); BLOOD UREA NITROGEN 40 mg/dL (7-20); CALCIUM 8.6 mg/dL (8.4-10.2); CARBON DIOXIDE 28 mmol/L (22-30); CHLORIDE 106 mmol/L (98-107); CREATINE KINASE 35 U/L (55-170); GLUCOSE 99 mg/dL (75-110); POTASSIUM 4.6 mmol/L (3.6-5.0)
[2019-01-18 06:04] LABS: CREATINE KINASE MB 0.63 ng/mL (<4.55); TROPONIN I < 0.012 ng/mL
[2019-01-18] MEDS: FLUTICASONE/UMECLIDIN/VILANTER 100-62.5-25 MCG/DOSE IH SCH (09:39)
[2019-01-18] MEDS: APIXABAN 5 MG TABLET PO SCH (09:40)
[2019-01-18] MEDS: LORATADINE 10 MG TABLET PO SCH (09:40)
[2019-01-18] MEDS: DILTIAZEM HCL 120 MG CAP.SR.24H PO SCH ×2 (09:40→21:23)
[2019-01-18] MEDS: LEVOFLOXACIN 500 MG/D5W RTU 500 MG/100 ML RTUPB IV SCH (09:40)
[2019-01-18] MEDS: FINASTERIDE 5 MG TABLET PO SCH (09:40)
--- NOTE | 2019-01-18 14:05 | PDOC PROGRESS REPORT ---
Subjective Progress Note for:: 01/18/19 Subjective:: No chest pain or difficulty with breathing. No nausea, vomiting, or abdominal pain. No fever or chills. Reason For Visit: EXACERBATED COPD WITH HYPOXEMIA,CHRONIC DIASTOLIC Physical Exam Vital Signs: Temp Pulse Resp BP Pulse Ox 99.1 F 93 16 119/60 99 01/18/19 12:14 01/18/19 12:14 01/18/19 12:14 01/18/19 12:14 01/18/19 12:14 Intake & Output 01/17/19 01/18/19 01/19/19 06:59 06:59 06:59 Intake Total 666 Output Total 300 Balance 366 Weight 93.1 kg Physical Exam: General appearance: PRESENT: no acute distress, well-developed, well-nourished Head exam: PRESENT: atraumatic, normocephalic Eye exam: PRESENT: conjunctiva pink. ABSENT: scleral icterus Ear exam: PRESENT: normal external ear exam Mouth exam: PRESENT: moist Respiratory exam: PRESENT: clear to auscultation aurora Cardiovascular exam: PRESENT: RRR, +S1, +S2. ABSENT: diastolic murmur, rubs, systolic murmur, tachycardia Vascular exam: ABSENT: pallor GI/Abdominal exam: PRESENT: normal bowel sounds, soft. ABSENT: distended, guarding, mass, organolmegaly, rebound, tenderness Extremities exam: ABSENT: pedal edema Musculoskeletal exam: PRESENT: normal inspection Neurological exam: PRESENT: alert, awake, oriented to person, oriented to place, oriented to time, oriented to situation, CN II-XII grossly intact. ABSENT: motor sensory deficit Psychiatric exam: PRESENT: appropriate affect, normal mood. ABSENT: homicidal ideation, suicidal ideation Skin exam: PRESENT: dry, warm Results Laboratory Results: 01/17/19 04:05 01/18/19 04:51 01/17/19 01/18/19 17:00 04:51 Sodium 142.2 Potassium 4.6 Chloride 106 Carbon Dioxide 28 Anion Gap 8 BUN 40 H Creatinine 1.92 H Est GFR ( Amer) 41 L Glucose 99 Calcium 8.6 Magnesium 2.3 01/15/19 01/15/19 01/17/19 19:55 19:55 00:23 Creatine Kinase 97 CK-MB (CK-2) Troponin I 0.018 NT-Pro-B Natriuret Pep 2060 H 11/03/19 11/03/19 11/03/19 00:23 17:00 17:00 Creatine Kinase 44 L CK-MB (CK-2) 4.77 H 1.17 Troponin I 0.014 0.014 NT-Pro-B Natriuret Pep 01/17/19 01/17/19 01/18/19 22:50 22:50 04:51 Creatine Kinase 39 L 35 L CK-MB (CK-2) 0.85 Troponin I 0.015 NT-Pro-B Natriuret Pep 01/18/19 04:51 Creatine Kinase CK-MB (CK-2) 0.63 Troponin I < 0.012 NT-Pro-B Natriuret Pep Impressions: Chest X-Ray 01/15/19 14:18 IMPRESSION: Similar chronic interstitial changes -scarring in the lung bases, right greater than left. No consolidation or pleural effusion. Chest CT 01/15/19 21:17 IMPRESSION: No significant consolidation. Extensive interstitial disease. Mildly enlarged mediastinal lymph nodes. Additional findings above. Lung Scan-VQ NM 01/15/19 22:41 IMPRESSION: 1. Nondiagnostic ventilation scan as described above. 2. No significant segmental or subsegmental perfusion defects are identified. This scan is felt to be low probability for pulmonary embolism. Assessment & Plan - Diagnosis (1) Chronic obstructive pulmonary disease with hypoxia Is this a current diagnosis for this admission?: Yes (2) Diastolic CHF Qualifiers: Heart failure chronicity: chronic Qualified Code(s): I50.32 - Chronic diastolic (congestive) heart failure Is this a current diagnosis for this admission?: Yes (3) HTN (hypertension) Qualifiers: Hypertension type: essential hypertension Qualified Code(s): I10 - Essential (primary) hypertension Is this a current diagnosis for this admission?: Yes (4) CKD (chronic kidney disease) stage 3, GFR 30-59 ml/min Is this a current diagnosis for this admission?: Yes (5) BPH loc w urin obs/LUTS Is this a current diagnosis for this admission?: Yes (6) Atrial fibrillation, transient Is this a current diagnosis for this admission?: Yes Plan: Review of his monitor strip and EKG did not confirm atrial fibrillation but sinus tachycardia with PVCs. He will need event monitor on outpatient. D/C Eliquis administration. I discussed case with Dr. Michaels, tailer off, and he is in agreement. - Time Time Spent with patient: 25-34 minutes Level of Care: IMCU Medications reviewed and adjusted accordingly: Yes Anticipated discharge: Home Within: Other - Inpatient Certification Based on my medical assessment, after consideration of the patient's comorbidit ies, presenting symptoms, or acuity I expect that the services needed warrant INPATIENT care.: Yes I certify that my determination is in accordance with my understanding of Me lynnette's requirements for reasonable and necessary INPATIENT services [42 CFR 412.3e].: Yes Medical Necessity: Significant Comorbidiites Make Outpatient Treatment Too Risky, Need Close Monitoring Due to Risk of Patient Decompensation, Need For Continuous Telemetry Monitoring, Risk of Complication if Not Cared For in Hospital, Risk of Diagnosis Which Will Require Inpatient Eval/Care/Monitoring Post Hospital Care: D/C Chief Librarian Music Department Documentation - Plan Summary Plan Summary: D/C Aidee. Maintain on all other current medication management. Follow up on echocardiogram findings.
[2019-01-18] MEDS: ASPIRIN 81 MG TABLET, ENT COATED PO SCH (17:43)
[2019-01-18] MEDS: TAMSULOSIN HCL 0.4 MG CAP.SR.24H PO SCH (17:43)
--- NOTE | 2019-01-18 21:56 | Progress Note ---
Provider Note Provider Note: Patient seen at the request of Dr. Cordoba: Reason being paroxysmal atrial fibrillation. It is mentioned that the patient had atrial fibrillation which converted to sinus rhythm on Cardizem. But after thorough searching of the patient's records including the ER admission records and the monitor strips and monitoring data there is no evidence of the patient ever had atrial fibrillation this admission. The patient does have episodic shortness of breath. Hence would recommend that the patient have an outpatient 30-day event monitor and an IV Lexiscan Cardiolite stress test once his COPD exacerbation is controlled. He still can be done as an outpatient. The patient desires to follow-up with me contact num bers given to the patient to follow-up with me in the office. Discussed this with Dr. Cordoba. At present there is no indication to the patient had atrial fibrillation, hence would recommend stopping the patient's Eliquis since there is no clear-cut indication for it at present. But would recommend continuing monitoring the patient during this hospital admission.
[2019-01-19] MEDS: LEVOFLOXACIN 500 MG/D5W RTU 500 MG/100 ML RTUPB IV SCH (09:05)
[2019-01-19] MEDS: DILTIAZEM HCL 120 MG CAP.SR.24H PO SCH (09:06)
[2019-01-19] MEDS: LORATADINE 10 MG TABLET PO SCH (09:06)
[2019-01-19] MEDS: FLUTICASONE/UMECLIDIN/VILANTER 100-62.5-25 MCG/DOSE IH SCH (09:06)
[2019-01-19] MEDS: FINASTERIDE 5 MG TABLET PO SCH (09:06)
[2019-01-19 13:30] VITALS: BP 152/68
--- NOTE | 2019-01-19 14:22 | XCELERA REPORT ---
[address] [address] Transthoracic Echocardiogram Report Name: SAROJ GRAHAM Age: 78 yrs Gender: Male : 1940 Patient Status: Inpatient Patient Location: [address] [place], [place] [id number] Study Date: 01/18/2019 01:43 PM Height: 75 in Weight: 205 lb BSA: 2.2 m2 Procedure: A two-dimensional transthoracic echocardiogram with color flow and Doppler was performed. Study Quality: Fair. Reason For Study: Nw onset transient A.Fib, HTN, Diastolic CHF History: Nw onset transient A.Fib, HTN, Diastolic CHF. Ordering Physician: MARY GRACE SCHWARTZ Performed By: Usha Segal Interpretation Summary The left ventricle is normal in size. There is normal left ventricular wall thickness. LV EF is 65% Left ventricular systolic function is normal. Doppler measurements suggest impaired left ventricular relaxation, which is associated with grade I/IV or mild diastolic dysfunction The left ventricular wall motion is normal. There is no thrombus. ASD,VSD,or PFO seen The right ventricle is normal in size and function. The right atrium is normal. The left atrial size is normal. There is no evidence of mitral valve prolapse. There is no vegetation seen on the mitral valve. There is mild mitral stenosis There is no aortic valvular vegetation. There is no aortic valve stenosis There is no LVOT obstruction. There is a trace to mild amount of aortic regurgitation There is no tricuspid stenosis. There is a mild amount of tricuspid regurgitation There is mild pulmonary hypertension by echo RVSP is 39 to 44 mm of Hg , with RA mean of 5 to 10. There is no pulmonic valvular stenosis. There is no pulmonic valvular regurgitation. The aortic root is normal size. The inferior vena cava appeared normal and decreased > 50% with respiration (RAP 5-10 mmHg) There is no pericardial effusion. MMode/2D Measurements & Calculations IVSd: 0.90 cm LVIDd: 4.4 cm FS: 41.0 % Ao root diam: 2.9 cm LVIDs: 2.6 cm EDV(Teich): 88.1 ml Ao root area: 6.7 cm2 LVPWd: 0.96 cm ESV(Teich): 24.6 ml LA dimension: 3.3 cm EF(Teich): 72.0 % Doppler Measurements & Calculations MV E max dylon: MV P1/2t max dylon: Ao V2 max: LV V1 max P.2 cm/sec 108.0 cm/sec 160.0 cm/sec 5.3 mmHg MV A max dylon: MV P1/2t: 76.4 msec Ao max PG: LV V1 max: 156.1 cm/sec MVA(P1/2t): 2.9 cm2 10.2 mmHg 115.5 cm/sec MV E/A: 0.70 MV dec slope: 413.7 cm/sec2 MV dec time: 0.23 sec PA V2 max: TR max dylon: MV P1/2t-pr_phl: 76.5 cm/sec 291.8 cm/sec 76.4 msec PA max P.3 mmHgTR max P.1 mmHg Left Ventricle The left ventricle is normal in size. There is normal left ventricular wall thickness. LV EF is 65%. Left ventricular systolic function is normal. Doppler measurements suggest impaired left ventricular relaxation, which is associated with grade I/IV or mild diastolic dysfunction. The left ventricular wall motion is normal. There is no thrombus. ASD,VSD,or PFO seen. Right Ventricle The right ventricle is normal in size and function. Atria The right atrium is normal. The left atrial size is normal. Mitral Valve There is no evidence of mitral valve prolapse. There is no vegetation seen on the mitral valve. There is mild mitral stenosis. Aortic Valve There is no aortic valvular vegetation. There is no aortic valve stenosis. There is no LVOT obstruction. There is a trace to mild amount of aortic regurgitation. Tricuspid Valve There is no tricuspid stenosis. There is a mild amount of tricuspid regurgitation. There is mild pulmonary hypertension by echo. RVSP is 39 to 44 mm of Hg , with RA mean of 5 to 10. Pulmonic Valve There is no pulmonic valvular stenosis. There is no pulmonic valvular regurgitation. Great Vessels The aortic root is normal size. The inferior vena cava appeared normal and decreased > 50% with respiration (RAP 5-10 mmHg). Effusions There is no pericardial effusion. : MARY GRACE SCHWARTZ Lakshmi
--- NOTE | 2019-01-19 19:17 | PDOC DISCHARGE SUMMARY ---
Impression - Admit/DC Date/PCP Admission Date/Primary Care Provider: 01/15/19 23:27 MARY GRACE SCHWARTZ Discharge Date: 01/19/19 - Discharge Diagnosis (1) Acute respiratory failure with hypoxemia Is this a current diagnosis for this admission?: Yes (2) Chronic obstructive pulmonary disease with hypoxia Is this a current diagnosis for this admission?: Yes (3) Diastolic CHF Is this a current diagnosis for this admission?: Yes (4) HTN (hypertension) Is this a current diagnosis for this admission?: Yes (5) CKD (chronic kidney disease) stage 3, GFR 30-59 ml/min Is this a current diagnosis for this admission?: Yes (6) BPH loc w urin obs/LUTS Is this a current diagnosis for this admission?: Yes (7) Atrial fibrillation, transient Is this a current diagnosis for this admission?: No - Assessment Summary: Patient was admitted for exacerbated COPD with hypoxemia necessitating initial need for BiPAP support. There was initial concern for possible infectious process due to associated leukocytosis. His symptoms improved with supplemental oxygen, bronchodilators and BiPAP support. He was maintained on IV Levofloxacin therapy. He will be discharge home on supplemental oxygen due to demonstrable hypoxemia off supplemental oxygen via nasal cannula. His blood culture is no growth to date. His stay was highlighted with concern for possible atrial fibrillation and he was managed with IV Cardizem drip and start on Eliquis therapy. Review of his monitor trip was devoid of atrial fibrillation event but revealed sinus tachyarrhythmia. He was taken off Eliquis. He will remain on Cardizem CD 120 mg po q 12 hours. He will follow up with Dr. Michaels, fishing rod marker, who consulted on the patient and agreed with no atrial fibrillation status, for event monitor on outpatient. He will folow up with me in the office as instructed upon discharge. - Additional Information Resuscitation Status: Full Code Discharge Diet: Cardiac Discharge Activity: Activity As Tolerated, Slowly Increase Activity Referrals: MARTHA DRAKE MD [ACTIVE STAFF] - 01/29/19 10:15 am (Please bring insurance card and a list of medications or all medication bottles. ) MARY GRACE SCHWARTZ MD [Primary Care Provider] - 01/25/19 11:00 am (Need event monitor evaluation with Dr Michaels. Confirm appointment during follow up visit.) Prescriptions: Diltiazem HCl [Cardizem Cd 120 mg Capsule] 120 mg PO Q12 #60 cap.sr.24h Home Medications: Albuterol Sulfate [Proair HFA Inhalation Aerosol 8.5 gm MDI] 2 puff IH Q4HP PRN 01/16/19 Aspirin [Adult Low Dose Aspirin EC] 81 mg PO QPM 01/16/19 Azelastine HCl 2 spray NASL BIDP PRN 01/16/19 Finasteride [Proscar 5 mg Tablet] 5 mg PO QAM 01/16/19 Fluticasone/Umeclidin/Vilanter [Trelegy 100-62.5-25 Mcg Ellipta 14 Dose/Dpi] 1 puff IH QAM 01/16/19 Furosemide [Lasix 20 mg Tablet] 20 mg PO QAM 01/16/19 Loratadine [Claritin 10 mg Tablet] 10 mg PO QAM 01/16/19 Tamsulosin HCl [Flomax 0.4 mg Cap.sr] 0.4 mg PO QPM 01/16/19 Tramadol HCl [Ultram 50 mg Tablet] 50 mg PO Q6HP PRN 01/16/19 Diltiazem HCl [Cardizem Cd 120 mg Capsule] 120 mg PO Q12 #60 cap.sr.24h 01/19/19 History of Present Illiness History of Present Illness: SAROJ GRAHAM is a 78 year old male known to my practice who presented to the ED with complain about progressive worsening difficulty with breathing. He denied any chest pain or palpitation. No associated worsening cough or sputum production. No fever or chills. Patient has history of COPD and chronic systolic congestive heart failure. He admitted to medication compliance since last office visit as well as fluid and salt restrictions. His initial evaluation in the ED was significant for effort associated hypoxemia and elevated NT Pro-BNP. He was advised hospitalization for further evaluation and management. His morbidities are as listed below. Hospital Course Hospital Course: Patient was admitted for exacerbated COPD with hypoxemia necessitating initial need for BiPAP support. There was initial concern for possible infectious process due to associated leukocytosis. His symptoms improved with supplemental oxygen, bronchodilators and BiPAP support. He was maintained on IV Levofloxacin therapy. He will be discharge home on supplemental oxygen due to demonstrable hypoxemia off supplemental oxygen via nasal cannula. His blood culture is no growth to date. His stay was highlighted with concern for possible atrial fibrillation and he was managed with IV Cardizem drip and start on Eliquis therapy. Review of his monitor trip was devoid of atrial fibrillation event but revealed sinus tachyarrhythmia. He was taken off Eliquis. He will remain on Cardizem CD 120 mg po q 12 hours. He will follow up with Dr. Michaels, fishing rod marker, who consulted on the patient and agreed with no atrial fibrillation status, for event monitor on outpatient. He will folow up with me in the office as instructed upon discharge. Physical Exam Vital Signs: Temp Pulse Resp BP Pulse Ox 98.6 F 93 16 116/47 L 96 01/19/19 08:01 01/19/19 08:01 01/19/19 08:01 01/19/19 08:01 01/19/19 08:01 Intake & Output 01/18/19 01/19/19 01/20/19 06:59 06:59 06:59 Intake Total 666 577 Output Total 300 375 Balance 366 202 Weight 93.1 kg 90.9 kg General appearance: PRESENT: no acute distress, well-developed, well-nourished Head exam: PRESENT: atraumatic, normocephalic Eye exam: PRESENT: conjunctiva pink. ABSENT: scleral icterus Ear exam: PRESENT: normal external ear exam Mouth exam: PRESENT: moist Respiratory exam: PRESENT: clear to auscultation aurora Cardiovascular exam: PRESENT: RRR, +S1, +S2. ABSENT: diastolic murmur, rubs, systolic murmur, tachycardia Vascular exam: ABSENT: pallor GI/Abdominal exam: PRESENT: normal bowel sounds, soft. ABSENT: distended, guarding, mass, organomegaly, rebound, tenderness Extremities exam: ABSENT: pedal edema Musculoskeletal exam: PRESENT: normal inspection Neurological exam: PRESENT: alert, awake, oriented to person, oriented to place, oriented to time, oriented to situation, CN II-XII grossly intact. ABSENT: motor sensory deficit Psychiatric exam: PRESENT: appropriate affect, normal mood. ABSENT: homicidal ideation, suicidal ideation Skin exam: PRESENT: dry, warm Results Laboratory Results: WBC 8.2 10^3/uL (4.0-10.5) 01/17/19 04:05 RBC 4.19 10^6/uL (4.35-5.55) L 01/17/19 04:05 Hgb 12.3 g/dL (13.5-17.0) L 01/17/19 04:05 Hct 37.1 % (37.9-51.0) L 01/17/19 04:05 MCV 89 fl (80-97) 01/17/19 04:05 MCH 29.3 pg (27.0-33.4) 01/17/19 04:05 MCHC 33.0 g/dL (32.0-36.0) 01/17/19 04:05 RDW 14.5 % (11.5-14.0) H 01/17/19 04:05 Plt Count 197 10^3/uL (150-450) 01/17/19 04:05 Lymph % (Auto) 7.7 % (13-45) L 01/17/19 04:05 [place] % (Auto) 17.5 % (3-13) H 01/17/19 04:05 Eos % (Auto) 0.1 % (0-6) 01/17/19 04:05 Baso % (Auto) 0.1 % (0-2) 01/17/19 04:05 Absolute Neuts (auto) 6.1 10^3/uL (1.7-8.2) 01/17/19 04:05 Absolute Lymphs (auto) 0.6 10^3/uL (0.5-4.7) 01/17/19 04:05 Absolute Monos (auto) 1.4 10^3/uL (0.1-1.4) 01/17/19 04:05 Absolute Eos (auto) 0.0 10^3/uL (0.0-0.6) 01/17/19 04:05 Absolute Basos (auto) 0.0 10^3/uL (0.0-0.2) 01/17/19 04:05 Seg Neutrophils % 74.6 % (42-78) 01/17/19 04:05 Sodium 142.2 mmol/L (137-145) 01/18/19 04:51 Potassium 4.6 mmol/L (3.6-5.0) 01/18/19 04:51 Chloride 106 mmol/L (98-107) 01/18/19 04:51 Carbon Dioxide 28 mmol/L (22-30) 01/18/19 04:51 Anion Gap 8 (5-19) 01/18/19 04:51 BUN 40 mg/dL (7-20) H 01/18/19 04:51 Creatinine 1.92 mg/dL (0.52-1.25) H 01/18/19 04:51 Est GFR ( Amer) 41 (>60) L 01/18/19 04:51 Est GFR (MDRD) Non-Af 34 (>60) L 01/18/19 04:51 Glucose 99 mg/dL (75-110) 01/18/19 04:51 Calcium 8.6 mg/dL (8.4-10.2) 01/18/19 04:51 Magnesium 2.3 mg/dL (1.6-2.3) 01/17/19 17:00 Total Bilirubin 0.3 mg/dL (0.2-1.3) 01/17/19 04:05 Direct Bilirubin 0.2 mg/dL (0.0-0.4) 01/17/19 04:05 Neonat Total Bilirubin Not Reportable 01/17/19 04:05 Neonat Direct Bilirubin Not Reportable 01/17/19 04:05 Neonat Indirect Bili Not Reportable 01/17/19 04:05 AST 21 U/L (17-59) 01/17/19 04:05 ALT 13 U/L (<50) 01/17/19 04:05 Alkaline Phosphatase 48 U/L (38-126) 01/17/19 04:05 Creatine Kinase 35 U/L (55-170) L 01/18/19 04:51 CK-MB (CK-2) 0.63 ng/mL (<4.55) 01/18/19 04:51 Troponin I < 0.012 ng/mL 01/18/19 04:51 NT-Pro-B Natriuret Pep 2060 pg/mL (<450) H 01/15/19 19:55 Total Protein 5.7 g/dL (6.3-8.2) L 01/17/19 04:05 Albumin 3.3 g/dL (3.5-5.0) L 01/17/19 04:05 Urine Color YELLOW 01/15/19 20:04 Urine Appearance SLIGHTLY-CLOUDY 01/15/19 20:04 Urine pH 5.0 (5.0-9.0) 01/15/19 20:04 Ur Specific [place] 1.025 01/15/19 20:04 Urine Protein 30 mg/dL (NEGATIVE) H 01/15/19 20:04 Urine Glucose (UA) NEGATIVE mg/dL (NEGATIVE) 01/15/19 20:04 Urine Ketones 20 mg/dL (NEGATIVE) H 01/15/19 20:04 Urine Blood SMALL (NEGATIVE) H 01/15/19 20:04 Urine Nitrite NEGATIVE (NEGATIVE) 01/15/19 20:04 Urine Bilirubin NEGATIVE (NEGATIVE) 01/15/19 20:04 Urine Urobilinogen NEGATIVE mg/dL (<2.0) 01/15/19 20:04 Ur Leukocyte Esterase NEGATIVE (NEGATIVE) 01/15/19 20:04 Urine WBC (Auto) 4 /HPF 01/15/19 20:04 Urine RBC (Auto) 2 /HPF 01/15/19 20:04 Squamous Epi Cells Auto <1 /HPF 01/15/19 20:04 Urine Mucus (Auto) OCC /LPF 01/15/19 20:04 Urine Ascorbic Acid NEGATIVE (NEGATIVE) 01/15/19 20:04 01/15/19 01/15/19 01/17/19 19:55 19:55 00:23 CK-MB (CK-2) 4.77 H Troponin I 0.018 0.014 NT-Pro-B Natriuret Pep 2060 H 01/17/19 01/17/19 01/18/19 17:00 22:50 04:51 CK-MB (CK-2) 1.17 0.85 0.63 Troponin I 0.014 0.015 < 0.012 NT-Pro-B Natriuret Pep Impressions: Chest X-Ray 01/15/19 14:18 IMPRESSION: Similar chronic interstitial changes -scarring in the lung bases, right greater than left. No consolidation or pleural effusion. Chest CT 01/15/19 21:17 IMPRESSION: No significant consolidation. Extensive interstitial disease. Mildly enlarged mediastinal lymph nodes. Additional findings above. Lung Scan-VQ NM 01/15/19 22:41 IMPRESSION: 1. Nondiagnostic ventilation scan as described above. 2. No significant segmental or subsegmental perfusion defects are identified. This scan is felt to be low probability for pulmonary embolism. Plan Health Concerns: Exertional shortness of breath with history of COPD and episodes of tachyarrhythmia predispose patient to high risk readmission status. He will be discharged home on supplemental oxygen due to demonstrable hypoxemia off supplemental oxygen even at rest. His echocardiogram revealed normal LVEF with mild diastolic dysfunction. He will be discharged Plan of Treatment: Maintain on COPD management with supplemental oxygen. Follow up on event monitoring for his tachyarrhythmia. Goals: Improve his COPD management with outpatient pulmonary rehabilitation. Follow up on event monitor for his tachyarrhythmia. Maintain on Cardizem CD 120 mg p.o bid. Follow up with Dr. Michaels, fishing rod marker. Time Spent: Greater than 30 Minutes Stroke Is this a Stroke Patient?: No Acute Heart Failure - Is this a Heart Failure Patient?: No
== END 2019-01-19 13:47 | disposition home or self-care (01) | DRG 190 ==
LOC: ER 14:13 → EH 23:27 → 3W 01-16 01:48
PROVIDERS: ADMIT Internal Medicine Geriatric Medicine; ATTEND Internal Medicine Geriatric Medicine
DX: J44.1 Chronic obstructive pulmonary disease with (acute) exacerbation (principal); J96.01 Acute respiratory failure with hypoxia; I13.0 Hypertensive heart and chronic kidney disease with heart failure and stage 1 through stage 4 chronic kidney disease, or unspecified chronic kidney disease; N13.8 Other obstructive and reflux uropathy; I50.32 Chronic diastolic (congestive) heart failure; M46.90 Unspecified inflammatory spondylopathy, site unspecified; M19.031 Primary osteoarthritis, right wrist; Z79.82 Long term (current) use of aspirin; Z79.899 Other long term (current) drug therapy; N18.3 Chronic kidney disease, stage 3 (moderate); N40.1 Benign prostatic hyperplasia with lower urinary tract symptoms; R00.0 Tachycardia, unspecified; D72.829 Elevated white blood cell count, unspecified; Z79.51 Long term (current) use of inhaled steroids; Z87.891 Personal history of nicotine dependence
CPT/HCPCS: 36415; 71045; 71250; 78582; 80048; 80053; 81001; 82550; 82553; 83735; 83880; 84484; 85025; 87040; 93005; 93010; 93306; 94640; 96365; 96366; 99291; A9540; A9567; J1956; J3475; J3490; J7620; Q9969